=== PATIENT | male | born 1940 | race Caucasian/White ===

== ENCOUNTER 2020-10-04 23:26 | Inpatient (IN) | payer MEDICARE, OTHER, SELFPAY ==
[2020-02-12 09:46] VITALS: BMI 30.9
[2020-10-04 23:28] VITALS: BP 129/59; PULSE 91; RESP 17; TEMP 36.9; O2SAT 97; BMI 22.4
[2020-10-04 23:45] VITALS: BP 123/55; PULSE 90; RESP 19; O2SAT 95
--- NOTE | 2020-10-04 23:45 | CT_ITS ---
STUDY: CT HEAD STROKE PROTOCOL W/O CONTRAST INJECTION REASON FOR EXAM: Male, 80 years old. CONFUSION/? STROKE RADIATION DOSAGE (If Supplied By Facility): CTDIvol = ( ) mGy, DLP = ( ) mGycm TECHNIQUE: Transaxial CT imaging of the brain was performed without administration of intravenous contrast material. Individualized dose optimization techniques were used for this CT. COMPARISON: No relevant priors. FINDINGS: Normal soft tissue structures. Normal calvarium. There is a cavum septum pellucidum and a cavum septum vergae, a minor developmental anomaly. There is asymmetry of the ventricles consistent with an anatomic variant. Ventricular size is somewhat disproportionate to size of cortical sulci, which may be due to normal pressure hydrocephalus or central atrophy. There are areas of decreased attenuation within the white matter tracts of the supratentorial brain, consistent with microvascular disease changes. Normal basal ganglia and thalami. Normal brainstem. Normal cerebellum. There is atherosclerotic calcification of the cavernous carotid arteries. There is no intracranial hemorrhage. There are no findings of an acute ischemic infarction. Normal visualized paranasal sinuses. ASPECT score: 10 CT/STROKE Brain/Head without Cont IMPRESSION: Chronic involutional changes of the brain. Disproportionate prominence of the ventricles may be due to normal pressure hydrocephalus or central atrophy. No demonstrated acute intracranial process. N.B. : The above information has been verbally conveyed by Ilir Wilkinson MD to Dr. Luke Nation MD, on 10/05/2020 00:08:25 (ET). Electronically Signed: Ilir Wilkinson MD at 0:12 EST , Service support ,
--- NOTE | 2020-10-04 23:45 | EKG12_ITS ---
Test Reason : DYSRHYTHMIA Blood Pressure : / mmHG Vent. Rate : 092 BPM Atrial Rate : 092 BPM P-R Int : 176 ms QRS Dur : 090 ms QT Int : 350 ms P-R-T Axes : 046 017 -08 degrees QTc Int : 432 ms Normal sinus rhythm Normal ECG Confirmed by ROBINSON BUI, YUE ([id number]), art editor AVELINA FLOYD ([id number]) on 10/06/2020 8:55:23 AM Referred By: Emma Taylor Confirmed By:YEU BOWERS MD
--- NOTE | 2020-10-04 23:45 | RAD_ITS ---
STUDY: X-RAY CHEST REASON FOR EXAM: Male, 80 years old. altered mental status TECHNIQUE: Single AP portable view of the chest. COMPARISON: 04/15/2016. FINDINGS: There is mild chronic interstitial prominence in the lungs, greatest in the lower lung hi. There is no demonstrated focal pulmonary consolidation. There is no demonstrated pleural abnormality. Normal size heart. Normal mediastinum and evelina. Normal visualized aortic arch and descending thoracic aorta. There are no demonstrated acute fractures or destructive bone lesions. There is no demonstrated abnormality of the visualized soft tissue structures of the upper abdomen. RAD/Chest 1 View IMPRESSION: Chronic interstitial changes. No evidence for acute cardiopulmonary pathology. Electronically Signed: Ilir Wilkinson MD at 0:55 EST , Service support ,
[2020-10-04 23:46] VITALS: O2SAT 97
--- NOTE | 2020-10-04 23:47 | ED.VIS.GEN ---
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 Son-in-law is healthcare power of divorce attorney, presents to help provide history which is very limited from the patient. Patient lives alone, family lives nearby, they have a security camera focused on his rocking chair/recliner where he usually is. His son saw him earlier today in person and he was not right. Later, they saw that he was not in his chair for about 2 hours and since that was very unusual given the time of day, they went to check on him. He was standing in one of the bedrooms of the house, salivating at the mouth, with a pack of napkins or something that he was trying to open, unable to talk or communicate, and seeming very confused but standing. Family states that he does have some dementia, but he usually can answer questions appropriately and this is very unusual for him. He also states that he commonly has attitude and as the patient is apparently jokingly refusing to do physical exam maneuvers that I asked, the family member laughs and indicates that that is not uncommon for him. - Past Medical History (1) Dementia Status: Chronic (2) Essential (primary) hypertension Status: Chronic (3) Paroxysmal atrial fibrillation Status: Chronic Past Medical History - Allergies and Home Meds Allergies/Adverse Reactions: Allergies No Known Allergies Allergy (Verified 02/12/20 09:46) Primary Care Physician: Jose L Gorman III, MD [Primary Care Provider] - Lives: Alone Smoking Status: Never smoker - Family History Maternal Family History: Family History (Last Reviewed 02/12/20 @ 10:[address] Hardeep Medrano MD) Brother Blood clot in vein Hypertension Heart disease Sister CVA (cerebral vascular accident) Mother Heart disease Diabetes Family History: Reports: Diabetes, Heart Disease Paternal Family History: Family History (Last Reviewed 02/12/20 @ 10:[address] Hardeep Medrano MD) Brother Blood clot in vein Hypertension Heart disease Sister CVA (cerebral vascular accident) Mother Heart disease Diabetes Family History: Reports: - - Son denies any market paternal family history in his paternal grandfather including heart disease, diabetes, cancer. Review of Systems ROS: Unable to Obtain - At this time patient denies pain. Very garbled speech and altered mental status limits ROS. Physical Exam Vital Signs/Narrative: Vital Signs Temp Pulse Resp BP Pulse Ox 10/04/20 23:28 98.5 F 91 17 129/59 H 97 NIH Stroke Scale/Score (NIHSS) from [email or web address] on 10/05/2020 All calculations should be rechecked by clinician prior to use RESULT SUMMARY: 9 points NIH Stroke Scale INPUTS: 1A: Level of consciousness ?> 1 = Arouses to minor stimulation 1B: Ask month and age ?> 2 = Aphasic 1C: 'Blink eyes' & 'squeeze hands' ?> 2 = Performs 0 tasks 2: Horizontal extraocular movements ?> 0 = Normal 3: Visual hi ?> 0 = No visual loss 4: Facial palsy ?> 0 = Normal symmetry 5A: Left arm motor drift ?> 0 = No drift for 10 seconds 5B: Right arm motor drift ?> 0 = No drift for 10 seconds 6A: Left leg motor drift ?> 0 = No drift for 5 seconds 6B: Right leg motor drift ?> 0 = No drift for 5 seconds 7: Limb Ataxia ?> 0 = No ataxia 8: Sensation ?> 0 = Normal; no sensory loss 9: Language/aphasia ?> 2 = Severe aphasia: fragmentary expression, inference needed, cannot identify materials 10: Dysarthria ?> 2 = Severe dysarthria: unintelligible slurring or out of proportion to dysphasia 11: Extinction/inattention ?> 0 = No abnormality Inital Vital Signs reviewed: Yes General: Well nourished, Well developed, No Acute Distress Head: Normocephalic, Atraumatic Eyes: Perrl - 1-2 mm, EOMI ENT: Moist mucous membranes, No rhinorrhea, - - Posterior oropharynx clear. Oral mucous membranes moist, no excessive secretions, patient airway is patent and stable, no stridor. Neck: Supple - Without meningismus, Nontender, No lymphadenopathy, No JVD Cardiovascular: Regular rate, Regular rhythm, No murmurs. Negative for: Tachycardia Respiratory: No distress, CTA bilaterally, Chest nontender Abdomen: Soft, Nontender, Nondistended, Normal bowel sounds Back: Nontender, Normal Inspection Extremities: Nontender, Edema - Trace bilateral lower extremities, symmetric, without signs of cellulitis/infection. Skin: Normal color, No rash, No Trauma Neurological: Alert, Cranial nerves II-XII grossly intact, Normal Strength, Normal Sensation, Disoriented - Global aphasia, slurred speech almost unintelligible, does not answer questions appropriately, but gross peripheral motor and sensory intact. Patient will not hold his arms up for NIH, but seems to move everything symmetrically and normally., - Psychological: Normal affect, Normal Mood Diagnostic/Tx/Re-eval Impressions Brain CT 10/04/20 23:45 IMPRESSION: Chronic involutional changes of the brain. Disproportionate prominence of the ventricles may be due to normal pressure hydrocephalus or central atrophy. No demonstrated acute intracranial process. N.B. : The above information has been verbally conveyed by Ilir Wilkinson MD to Dr. Luke Nation MD, on 10/05/2020 00:08:25 (ET). Electronically Signed: Ilir Wilkinson MD at 0:12 EST , Service support , ADDENDUM: 10/05/20 0019 IMPRESSION: Chronic involutional changes of the brain. Disproportionate prominence of the ventricles may be due to normal pressure hydrocephalus or central atrophy. No demonstrated acute intracranial process. N.B. : The above information has been verbally conveyed by Ilir Wilkinson MD to Dr. Luke Nation MD, on 10/05/2020 00:08:25 (ET). Electronically Signed: Ilir Wilkinson MD at 0:12 EST , Service support , Chest X-Ray 10/04/20 23:45 IMPRESSION: Chronic interstitial changes. No evidence for acute cardiopulmonary pathology. Electronically Signed: Ilir Wilkinson MD at 0:55 EST , Service support , 10/04/20 23:45 Chest 1 View [RAD] Stat STROKE Brain/Head without Cont [CT] Stat 10/05/20 01:01 Brain without Contrast [MRI] Routine 10/05/20 01:08 MRA Head ONLY without Contrast [MRI] Routine MRA Neck without Contrast [MRI] Routine 10/05/20 05:55 Chest 1 View (Portable) [RAD] AM (NON MEDS) 10/05/20 00:34 Mucosa - Nose SARS-CoV-2 Antigen (Rapid) - Final Laboratory Results 10/04/20 10/04/20 10/04/20 23:36 23:36 23:36 WBC 10.3 RBC 4.16 L Hgb 12.8 L Hct 38.9 L MCV 93.5 MCH 30.8 MCHC 32.9 RDW Std Deviation 46.5 H RDW Coeff of Faustino 13.7 Plt Count 193 MPV 10.4 Immature Gran % (Auto) 0.400 Neut % (Auto) 83.6 H Lymph % (Auto) 4.9 L [place] % (Auto) 10.9 H Eos % (Auto) 0.0 Baso % (Auto) 0.2 Absolute Neuts (auto) 8.6 H Absolute Lymphs (auto) 0.51 L Nucleated RBC % 0 PT 21.4 H INR 1.9 APTT 37.2 H Sodium 138 Potassium 4.8 Chloride 107 Carbon Dioxide 24.0 Anion Gap 7 BUN 24 H Creatinine 1.66 H Estim Creat Clear Calc 34.06 Est GFR (MDRD) Af Amer 51 L Est GFR (MDRD) Non-Af 42 L BUN/Creatinine Ratio 14.5 Glucose 161 H Lactic Acid Calcium 8.8 Magnesium Total Bilirubin 0.80 AST 36 ALT 29 Alkaline Phosphatase 94 Troponin I < 0.015 Total Protein 8.7 H Albumin 3.4 Globulin 5.3 H Albumin/Globulin Ratio 0.6 L Procalcitonin Urine Color Urine Clarity Urine pH Ur Specific [place] Urine Protein Urine Glucose (UA) Urine Ketones Urine Occult Blood Urine Nitrite Urine Bilirubin Urine Urobilinogen Ur Leukocyte Esterase Urine RBC Urine WBC Ur Squamous Epith Cells Urine Bacteria Urine Mucus Urine Opiates Screen Urine Methadone Screen Acetaminophen Ur Barbiturates Screen Ur Phencyclidine Scrn Ur Amphetamines Screen U Methamphetamin-MDMA U Benzodiazepines Scrn Urine Cocaine Screen U Cannabinoids Screen Ur Drug Screen Comment POC Glucose 0110/04/20 10/04/20 23:36 23:36 23:36 WBC RBC Hgb Hct MCV MCH MCHC RDW Std Deviation RDW Coeff of Faustino Plt Count MPV Immature Gran % (Auto) Neut % (Auto) Lymph % (Auto) [place] % (Auto) Eos % (Auto) Baso % (Auto) Absolute Neuts (auto) Absolute Lymphs (auto) Nucleated RBC % PT INR APTT Sodium Potassium Chloride Carbon Dioxide Anion Gap BUN Creatinine Estim Creat Clear Calc Est GFR (MDRD) Af Amer Est GFR (MDRD) Non-Af BUN/Creatinine Ratio Glucose Lactic Acid 2.8 H* Calcium Magnesium 2.0 Total Bilirubin AST ALT Alkaline Phosphatase Troponin I Total Protein Albumin Globulin Albumin/Globulin Ratio Procalcitonin Urine Color Urine Clarity Urine pH Ur Specific [place] Urine Protein Urine Glucose (UA) Urine Ketones Urine Occult Blood Urine Nitrite Urine Bilirubin Urine Urobilinogen Ur Leukocyte Esterase Urine RBC Urine WBC Ur Squamous Epith Cells Urine Bacteria Urine Mucus Urine Opiates Screen Urine Methadone Screen Acetaminophen < 3.0 L Ur Barbiturates Screen Ur Phencyclidine Scrn Ur Amphetamines Screen U Methamphetamin-MDMA U Benzodiazepines Scrn Urine Cocaine Screen U Cannabinoids Screen Ur Drug Screen Comment POC Glucose 10/04/20 10/04/20 10/05/20 23:36 23:54 00:25 WBC RBC Hgb Hct MCV MCH MCHC RDW Std Deviation RDW Coeff of Faustino Plt Count MPV Immature Gran % (Auto) Neut % (Auto) Lymph % (Auto) [place] % (Auto) Eos % (Auto) Baso % (Auto) Absolute Neuts (auto) Absolute Lymphs (auto) Nucleated RBC % PT INR APTT Sodium Potassium Chloride Carbon Dioxide Anion Gap BUN Creatinine Estim Creat Clear Calc Est GFR (MDRD) Af Amer Est GFR (MDRD) Non-Af BUN/Creatinine Ratio Glucose Lactic Acid Calcium Magnesium Total Bilirubin AST ALT Alkaline Phosphatase Troponin I Total Protein Albumin Globulin Albumin/Globulin Ratio Procalcitonin 0.14 H Urine Color Urine Clarity Urine pH Ur Specific [place] Urine Protein Urine Glucose (UA) Urine Ketones Urine Occult Blood Urine Nitrite Urine Bilirubin Urine Urobilinogen Ur Leukocyte Esterase Urine RBC Urine WBC Ur Squamous Epith Cells Urine Bacteria Urine Mucus Urine Opiates Screen NEGATIVE Urine Methadone Screen NEGATIVE Acetaminophen Ur Barbiturates Screen NEGATIVE Ur Phencyclidine Scrn NEGATIVE Ur Amphetamines Screen NEGATIVE U Methamphetamin-MDMA NEGATIVE U Benzodiazepines Scrn NEGATIVE Urine Cocaine Screen NEGATIVE U Cannabinoids Screen NEGATIVE Ur Drug Screen Comment POC Glucose 137 H 10/05/20 00:25 WBC RBC Hgb Hct MCV MCH MCHC RDW Std Deviation RDW Coeff of Faustino Plt Count MPV Immature Gran % (Auto) Neut % (Auto) Lymph % (Auto) [place] % (Auto) Eos % (Auto) Baso % (Auto) Absolute Neuts (auto) Absolute Lymphs (auto) Nucleated RBC % PT INR APTT Sodium Potassium Chloride Carbon Dioxide Anion Gap BUN Creatinine Estim Creat Clear Calc Est GFR (MDRD) Af Amer Est GFR (MDRD) Non-Af BUN/Creatinine Ratio Glucose Lactic Acid Calcium Magnesium Total Bilirubin AST ALT Alkaline Phosphatase Troponin I Total Protein Albumin Globulin Albumin/Globulin Ratio Procalcitonin Urine Color Yellow Urine Clarity Clear Urine pH 5.0 Ur Specific [place] 1.020 Urine Protein 30 H Urine Glucose (UA) Normal Urine Ketones 5 H Urine Occult Blood 25 H Urine Nitrite Negative Urine Bilirubin Negative Urine Urobilinogen 1 H Ur Leukocyte Esterase Negative Urine RBC 0-5 SEEN Urine WBC 0 SEEN Ur Squamous Epith Cells 0 SEEN Urine Bacteria 0 SEEN Urine Mucus 0 SEEN Urine Opiates Screen Urine Methadone Screen Acetaminophen Ur Barbiturates Screen Ur Phencyclidine Scrn Ur Amphetamines Screen U Methamphetamin-MDMA U Benzodiazepines Scrn Urine Cocaine Screen U Cannabinoids Screen Ur Drug Screen Comment POC Glucose - Rhythm Strip Rhythm Strip: Sinus Rhythm Rate: 92 Ectopy: None - EKG Initial EKG Interpretation: Sinus Rhythm, No Acute Injury Pattern - Medical Decision Making Patient was not seen well within the last 24 hours, and is supposed to be on Xarelto although according to nursing, it does not appear in the EMR link to pharmacy that he has filled it since 2008. For these reasons, he is not a TPA candidate, he is not likely a thrombectomy candidate, and since we do not have CT perfusion available here, no stroke team was called, although stroke was considered in the broad differential for his altered mental status given his aphasia and garbled speech, although he does not have any other lateralizing cortical or peripheral neurologic abnormalities. Plain CT is negative. On my interpretation, 1 view chest x-ray is concerning for patchy infiltrates, putting Covid more in the differential diagnosis. Therefore a rapid antigen test was sent. It returned negative. Toxicology screening returned negative, urine is negative, blood cultures and lactate were sent, his lactate is nonspecifically mildly elevated, although his vital signs are normal, he is not hypoxic, and not clinically septic. He was treated empirically for bacterial pneumonia with Rocephin and Zithromax after cultures sent. ED Disposition - Plan for ED Patient: Disposition: [facility] Care [facility] Diagnosis: Acute encephalopathy, Aphasia Referrals: Jose L Gorman III, MD [Primary Care Provider] -
[2020-10-05] VITALS (25 sets, daily range): BP systolic 103–143; BP diastolic 48–98; PULSE 76–111; RESP 15–26; TEMP 36.7–38; O2SAT 81–98; BMI 30.2
[2020-10-05 00:01] LABS: Bedside Glucose 137 mg/dL (70-110)
[2020-10-05 00:02] LABS: International Normalized Ratio 1.9; Prothrombin Time (Protime)PT. 21.4 SECONDS (11.7-14.9)
[2020-10-05 00:11] LABS: ALB/GLOB Ratio 0.6 RATIO (0.9-2.4); AST(SGOT) 36 U/L (15-37); Acetaminophen (Tylenol) Level < 3.0 ug/mL (10.0-30.0); Alanine Aminotransfer ALT/SGPT 29 U/L (16-61); Albumin, Serum 3.4 g/dL (3.2-5.0); Alkaline Phosphatase 94 U/L (45-117); Anion Gap 7 (5-15); BUN 24 mg/dL (7-18); BUN/Creat Ratio 14.5 RATIO (10-20); Calcium,Total 8.8 mg/dL (8.5-10.1); Chloride 107 mmol/L (98-107); Creatinine, Serum 1.66 mg/dL (0.70-1.30); EST Glomerular Filtration Rate 42 mL/min (>60); Est Glom Filt Rate - Afr Amer 51 mL/min (>60); Estimated Creatinine Clearance 34.06 ml/min; Globulin 5.3 g/dL (2.2-4.2); Glucose 161 mg/dL (74-106); Partial Thromboplast Time 37.2 Seconds (24.1-36.2); Potassium 4.8 mmol/L (3.5-5.1); Protein, Total 8.7 g/dL (6.4-8.2); Sodium Level 138 mmol/L (136-145)
[2020-10-05 00:16] LABS: Absolute Lymphocyte Count 0.51 X10^3/uL (0.83-4.51); Absolute Neutrophil Count 8.6 X10^3/uL (2.0-7.7); Basophil# 0.02 X10^3/uL; Basophil% 0.2 % (0-1); Hematocrit 38.9 % (40-54); Hemoglobin 12.8 g/dL (13.0-16.5); Lymphocyte # 0.51 X10^3/ul (4.0); Lymphocyte % 4.9 % (19-41); Mean Corp Hgb Conc 32.9 g/dL (32-36); Mean Corpuscular Hgb 30.8 pg (27.0-32.0); Mean Corpuscular Volume 93.5 fL (80-94); Mean Platelet Vol. 10.4 fl (6.2-12.0); Monocyte# 1.12 X10^3/uL; Monocyte% 10.9 % (0-10); NRBC Flagged by Analyzer 0 % (0-5); Neutrophil # 8.63 X10^3/uL (2.7-7.7); Neutrophil % 83.6 % (47-70); POSITIVE DIFFERENTIAL YES; Platelet Count 193 K/mm3 (150-450); RBC Distribution Width CV 13.7 % (11.6-14.6); RBC Distribution Width SD 46.5 fl (35.1-43.9); Red Blood Count 4.16 M/mm3 (4.6-6.2); White Blood Count 10.3 K/mm3 (4.4-11.0)
[2020-10-05 00:19] LABS: Differential Indicated SCAN CRITERIA MET
[2020-10-05 00:33] LABS: Bacteria 0 SEEN /hpf (None Seen); Mucous, Urine 0 SEEN /hpf (<or=2+); Squamous Epithelial Cells - UA 0 SEEN /hpf (0-5); White Blood Cells 0 SEEN /hpf (0-5)
[2020-10-05 00:36] LABS: Color, Urine Yellow (Yellow); Glucose, Dipstick Normal (Normal); Ketone-Dipstick 5 mg/dl (Negative); Leukocyte Esterase-Dipstick Negative /ul (Negative); Nitrite-Dipstick Negative (Negative); Occult Blood-Urine 25 /ul (Negative); Protein-Dipstick 30 mg/dl (Negative); Urine Bilirubin Dipstick Negative (Negative); Urine Clarity Clear (Clear); Urine Urobilinogen 1 mg/dl (Normal)
[2020-10-05 00:46] LABS: Red Blood Cells-Urine 0-5 SEEN /hpf (0-5)
--- NOTE | 2020-10-05 00:47 | HP.PCM_ITS ---
Problem List (1) CVA (cerebral vascular accident) Status: Acute Qualifiers: CVA mechanism: unspecified Qualified Code(s): I63.9 - Cerebral infarction, unspecified (2) CKD (chronic kidney disease), stage III Status: Chronic Qualifiers: Chronic kidney disease stage 3 subtype: unspecified whether 3a or 3b Qualified Code(s): N18.30 - Chronic kidney disease, stage 3 unspecified (3) Normocytic anemia Status: Chronic (4) Dementia Status: Chronic Qualifiers: Dementia type: unspecified type Dementia behavioral disturbance: without behavioral disturbance Qualified Code(s): F03.90 - Unspecified dementia with out behavioral disturbance (5) Paroxysmal atrial fibrillation Status: Chronic (6) Essential (primary) hypertension Status: Chronic History of Present Illness Date of Admission: 10/05/20 Chief Complaint: Confusion The patient is a 80 y/o M w/ PMHx: Dementia unclear type with unclear behavioral disturbance history, HTN, JAKUB non-compliant with CPAP, Hx DVT LLE, Severely hearing impaired, PAF unclear if taking any of his medications per Son report living by himself and family rotating through and caring for him who presents to the [facility] ED on 10/05/20 with history of onset significantly abnormal behavior noted at ~3:30 pm with last normal behavior and interactions the evening prior. The family does have a monitor that sits in front of where he has his television chair and they noted that he been out of his chair for several hours prompting them to go to the house and check on him. When they found him he was eating pie and salivating in the bathroom, globally aphasic and unable to give any interaction or follow correct commands prompting ED evaluation. Prior to his current presentation family notes that he has had no recent fever, chills, nausea, emesis, abdominal pain, chest pain, cough, dyspnea, alteration to his sense of taste or smell. Work-up in the ED included T 98.5, heart rate 91, BP 129/59, respiratory rate 17, 97% on room air, CBC with WC 10.3, hemoglobin 12.8, platelet 193 with left shift and lymphopenia, coags with PT 21.4, INR 1.9, PTT 37.2, CMP with BUN/creatinine 24/1.66, glucose 161, lactic acid 2.8, troponin less than 0.015, unremarkable hepatic profile, urinalysis unremarkable, UDS unremarkable, acetaminophen level less than 3, blood culture x2 pending per ED, CT of the brain with chronic involutional changes with disproportionate prominence of the ventricles possibly secondary to NPH or central atrophy with no acute intracranial process, CXR with chronic interstitial changes with no acute cardiopulmonary findings, COVID rapid antigen pending and final read pending on CXR, EKG with SR without acute evidence of ischemia. In the ED patient administered normal saline, ED awaiting final read of chest x-ray/Covid testing prior to consideration for antibiotic therapy. Past Medical History Past Medical History (Chronic Problems): Chronic Problems (Last Reviewed 02/12/20 @ 10:[address] Hardeep Medrano MD) Dementia (Chronic) CKD (chronic kidney disease), stage III (Chronic) Normocytic anemia (Chronic) Paroxysmal atrial fibrillation (Chronic) Essential (primary) hypertension (Chronic) Medical History: Medical History (Last Reviewed 02/12/20 @ 10:[address] Hardeep Medrano MD) Paroxysmal atrial fibrillation (Chronic) I48.0 Essential (primary) hypertension (Chronic) I10 Basal cell carcinoma C44.91 Left cheek Deep vein thrombosis (DVT) of left lower extremity Onset Date: ~11/2015 I82.402 Diverticulosis K57.90 Hearing loss H91.90 Hemorrhoids K64.9 Sleep apnea G47.30 Allergies No Known Allergies Allergy (Verified 02/12/20 09:46) Home Medications: Ambulatory Orders Medication Instructions Recorded rivaroxaban 20 mg tablet 20 mg PO DAILY #30 tab 03/04/20 Surgical History: Surgical History (Last Reviewed 02/12/20 @ 10:[address] Hardeep Medrano MD) H/O repair of right rotator cuff Z98.890 History of basal cell carcinoma excision Z98.890, Z85.828 History of cataract surgery Z98.49 History of nasal septoplasty Z98.890 Surgical History: - - Cataract surgery, nasal septoplasty, right rotator cuff surgery, basal cell carcinoma excision. Psychiatric History: No pertinent psych hx Lives: Alone Smoking Status: Never smoker Tobacco Use: Non-smoker Alcohol: None Drugs: None - *Family History Maternal Family History: Family History (Last Reviewed 02/12/20 @ 10:[address] Hardeep Medrano MD) Brother Blood clot in vein Hypertension Heart disease Sister CVA (cerebral vascular accident) Mother Heart disease Diabetes History Items: Diabetes, Heart Disease Paternal Family History: Family History (Last Reviewed 02/12/20 @ 10:[address] Hardeep Medrano MD) Brother Blood clot in vein Hypertension Heart disease Sister CVA (cerebral vascular accident) Mother Heart disease Diabetes History Items: - - Son denies any market paternal family history in his paternal grandfather including heart disease, diabetes, cancer. Review of Systems Unable to obtain accurate/complete ROS d/t: Globally aphasic, unable to give any information including ROS. VTE Information - Inpt Only VTE Present on Admission: No VTE Mechan Device Prophylaxis: SCD's VTE Pharm Prophylaxis ordered?: No Reason prophylaxis not ordered:: Medical Contraindication - Will resume patient's Xarelto instead. Patient Problems: Active and Suspected Problems (Last Reviewed 02/12/20 @ 10:[address] Hardeep Medrano MD) CVA (cerebral vascular accident) (Acute) Subjective: Patient laying in the ED bed, fatigued appearing but no acute distress, difficult examination given significant global aphasia, not following commands. Objective: Physical Examination: General: awake, alert, clearly globally aphasic, not able to answer orientation questions or follow any commands, laying in the ED bed, no acute distress evident.. Skin: normal color, turgor, no icterus, cyanosis. HEENT: AT/NC, EOM appear intact but difficult to assess as patient not following any commands but will follow from side to side of the bed, PERRLA, moderately dry MM, no carotid bruits or JVD noted. Lungs: Diminished breath sounds, greater bases, no evidence of any distress, no specifically noted rales, ronchi or wheezing. Heart: Regular rate and rhythm; no gallop, rub audible. Abdomen: soft, NTTP, ND, mildly hyperactive BS, no HSM. Extremities: no cyanosis, clubbing, or edema. Neurological: patient awake, alert, globally aphasic; cognitive function not baseline intact, does have underlying dementia of note; pupils equally reactive to light and accomodation; cranial nerves difficult to assess as not following commands but globally appear normal, moving all extremities but not following any commands, difficult to assess strength, unable to perform [id number] and wryz-[id number] examination secondary to his significant aphasia, no obvious Babinski. Psychiatric: affect appears abnormal ranging from flat to randomly laughing as well as randomly aggressive, no acute evidence of depressive or anxiety feelings. - Physical Exam Vitals/I&O's: Vital Signs Temp Pulse Resp BP Pulse Ox 98.5 F 94 18 142/68 H 97 10/04/20 23:28 10/05/20 00:32 10/05/20 00:32 10/05/20 00:32 10/05/20 00:32 Oxygen Delivery Method Room Air Weight: 152 lb 1.903 oz Body Mass Index (BMI) 22.4 Finger Stick Blood Glucose 173 Laboratory Results 10/04/20 23:36: WBC 10.3, RBC 4.16 L, Hgb 12.8 L, Hct 38.9 L, MCV 93.5, MCH 30.8, MCHC 32.9, RDW Std Deviation 46.5 H, RDW Coeff of Faustino 13.7, Plt Count 193, MPV 10.4, Immature Gran % (Auto) 0.400, Neut % (Auto) 83.6 H, Lymph % (Auto) 4.9 L, [place] % (Auto) 10.9 H, Eos % (Auto) 0.0, Baso % (Auto) 0.2, Absolute Neuts (auto) 8.6 H, Absolute Lymphs (auto) 0.51 L, Nucleated RBC % 0 10/04/20 23:36: PT 21.4 H, INR 1.9, APTT 37.2 H 10/04/20 23:36: Sodium 138, Potassium 4.8, Chloride 107, Carbon Dioxide 24.0, Anion Gap 7, BUN 24 H, Creatinine 1.66 H, Estim Creat Clear Calc 34.06, Est GFR (MDRD) Af Amer 51 L, Est GFR (MDRD) Non-Af 42 L, BUN/Creatinine Ratio 14.5, Glucose 161 H, Calcium 8.8, Total Bilirubin 0.80, AST 36, ALT 29, Alkaline Phosphatase 94, Troponin I < 0.015, Total Protein 8.7 H, Albumin 3.4, Globulin 5.3 H, Albumin/Globulin Ratio 0.6 L 10/04/20 23:36: Acetaminophen < 3.0 L 10/04/20 23:36: Lactic Acid Pending 10/04/20 23:54: POC Glucose 137 H 10/05/20 00:25: Urine Opiates Screen Pending, Urine Methadone Screen Pending, Ur Barbiturates Screen Pending, Ur Phencyclidine Scrn Pending, Ur Amphetamines Screen Pending, U Methamphetamin-MDMA Pending, U Benzodiazepines Scrn Pending, Urine Cocaine Screen Pending, U Cannabinoids Screen Pending, Ur Drug Screen Comment 10/05/20 00:25: Urine Color Yellow, Urine Clarity Clear, Urine pH 5.0, Ur Specific [place] 1.020, Urine Protein 30 H, Urine Glucose (UA) Normal, Urine Ketones 5 H, Urine Occult Blood 25 H, Urine Nitrite Negative, Urine Bilirubin Negative, Urine Urobilinogen 1 H, Ur Leukocyte Esterase Negative, Urine RBC 0-5 SEEN, Urine WBC 0 SEEN, Ur Squamous Epith Cells 0 SEEN, Urine Bacteria 0 SEEN, Urine Mucus 0 SEEN Current Medications Sodium Chloride () 500 mls @ 999 mls/hr IV .Q31M ONE Last Admin: 10/05/20 00:06 Dose: 999 mls/hr Documented by: Labetalol HCl (Labetalol (Prefilled) 20 Mg/4 Ml) 20 mg IV X1 PRN PRN Reason: BLOOD PRESSURE Assessment/Plan All Active Problems (Last Reviewed 02/12/20 @ 10:[address] Hardeep Medrano MD) CVA (cerebral vascular accident) (Acute) The patient is a 80 y/o M w/ PMHx: Dementia unclear type with unclear behavioral disturbance history, HTN, JAKUB non-compliant with CPAP, Hx DVT LLE, Severely hearing impaired, PAF unclear if taking any of his medications per Son report living by himself and family rotating through and caring for him who presents to the [facility] ED on 10/05/20 with history of onset significantly abnormal behavior noted at ~3:30 pm with last normal behavior and interactions the evening prior. 1. Significant global aphasia concerning for CVA: Will admit to PCU, will obtain MRI Brain, MRA Head and Neck, ECHO, PT/OT/Speech/Nutrition evaluation per protocol. Will consult Neurology for evaluation once imaging obtained. Will allow permissive HTN in the interim, maintain on asa, add moderate dose statin given age w/ AM FLP, fall precautions. Magnesium, TSH, hemoglobin A1c requested. 2. Lactic acidosis, unclear etiology: Chest x-ray with chronic interstitial changes as initially been some concern for possible pneumonia upon initial preliminary review, Covid antigen pending, to be cautious will obtain repeat chest x-ray in a.m. following overnight hydration, procalcitonin requested, UA not marked appearing with urine culture pending, blood culture x2 pending, will request sputum as well as urine antigens as well to be cautious and reassess film in AM. 3. PAF: Given permissive hypertension will hold on any addition but following given history may consider low-dose metoprolol, will reinitiate patient Xarelto. 4. Hypertension: Patient's blood pressures primarily within normal range, permissive hypertension currently, judicious fluids as noted, add regimen once appropriate per discussion with family as likely would be transitioning to [facility] and could be assisted with medications at that time. 5. History of remote DVT left lower extremity: As noted being transition back on his anticoagulant therapy for PAF. 6. Suspected Chronic Kidney Disease Stage III: Admission BUN/Cr 24/1.66, no baseline noted in the computer since 2014, given age and history medically jimenez spect this is likely chronic but will continue to judiciously hydrate and repeat BMP in AM. 7. JAKUB: Noncompliant with CPAP. 8. DVT prophylaxis: SCDs, Xarelto. 9. CODE status: Patient SAVANNAH is his son Remberto who is present and living will is currently in place. Discussed CODE status at length including difference between FULL code, DNR-CCA and DNR-CC status. Following discussions about the dif ferences in these status, requested Full Code status but noted that if he worsened then he would plan transition to CC status. He notes plan for transition given current presentation to [facility] upon his discharge. Advanced Care Planning Face to Face Time: 16 minutes. Inpatient E&M: 16001 Init Hosp L3 Procedures: 39602 Advncd Care Plan 30 Min
[2020-10-05 00:51] LABS: Lactic Acid 2.8 mmol/L (0.4-1.9)
[2020-10-05 00:57] LABS: Amphetamine Urine VISTA NEGATIVE (<1000 ng/mL); Barbiturate Urine VISTA NEGATIVE (< 200 ng/mL); Benzodiazepine Urine VISTA NEGATIVE (< 200 ng/mL); Cocaine Urine VISTA NEGATIVE (< 300 ng/mL); Ecstacy Urine VISTA NEGATIVE (< 500 ng/mL); Methadone Urine VISTA NEGATIVE (< 300 ng/mL); PCP Urine VISTA NEGATIVE (< 25 ng/mL); THC Urine VISTA NEGATIVE (< 50 ng/mL); Vista UDS pH Range 5
--- NOTE | 2020-10-05 01:00 | ECHOCS_ITS ---
Version 2 Reason For Study: CVA Procedure This was a 2D Doppler, Color Flow transthoracic echocardiogram. The study was technically limited. Contrast injection was performed. Patient was scanned in supine position during reflux assessment. The exam was of poor technical quality due to poor acoustic windows / pectus excavatum. Exam performed portable in patient room. Left Ventricle Normal LV size. Left ventricular systolic function is normal. The estimated ejection fraction is 55 %. Stage 2 diastolic dysfunction. No regional wall motion abnormalities noted. Right Ventricle Normal RV size. Normal systolic function. Atria Normal left atrium. Normal right atrium. Bubble contrast study negative for right to left interatrial shunt. Mitral Valve Normal mitral valve. Tricuspid Valve Normal tricuspid valve. Mild (1+) tricuspid valve insufficiency. Pulmonary artery systolic pressure is 48 mmHg. Aortic Valve The aortic valve is not well visualized. Pulmonic Valve Normal pulmonic valve. Great Vessels Normal aortic root. The pulmonary artery is normal size. Normal inferior vena cava. Pericardium/Pleural No pericardial effusion. Medication Diluted definity 5.0ml given slow IV push to enhance endocardial definition. Performed a rapid injection of agitated mix of 9 cc saline and 1cc air to assess for atrial septal defect. Bubble study performed from subcostal window. MMode/2D Measurements & Calculations LVIDd: 4.4 cm IVSd: 0.99 cm Ao root diam: 3.8 cm LVIDs: 2.7 cm LVPWd: 0.99 cm RVDd: 3.4 cm FS: 39.4 % LAV(MOD-bp): 50.7 ml LA dimension(2D): 3.4 cm RA A4 area: 21.7 cm2 LAV(MOD-bp) Indexed: 24.3 ml/m2 LAV(MOD-sp2): 42.0 ml LAV(MOD-sp4): 46.3 ml Time Measurements MV dec time: 0.24 sec Doppler Measurements & Calculations MV E max matt: 89.9 cm/sec Lat Peak E' Matt: 8.6 cm/sec Med Peak E' Matt: 7.9 cm/sec MV A max matt: 74.1 cm/sec E/E' lat: 10.4 E/E' med: 11.4 MV E/A: 1.2 Ao V2 max: 134.9 cm/sec LV V1 max: 122.0 cm/sec PA V2 max: 110.6 cm/sec Ao max P.3 mmHg LV V1 max P.0 mmHg TR max matt: 333.8 cm/sec TR max P.6 mmHg Interpretation Summary Normal LV size. Left ventricular systolic function is normal. The estimated ejection fraction is 55 %. Mild (1+) tricuspid valve insufficiency. Pulmonary artery systolic pressure is 48 mmHg. Stage 2 diastolic dysfunction. Bubble contrast study negative for right to left interatrial shunt. Contrast injection was performed. Ordering Physician: Emma Taylor Referring Physician: JACOB MC III Performed By: Betsy Freed RDCS, RVT
--- NOTE | 2020-10-05 01:01 | MRI_ITS ---
STUDY: MRI BRAIN WITHOUT CONTRAST REASON FOR EXAM: Male, 80 years old. cva, aphasia -- hx dementia TECHNIQUE: Standardized multiplanar fat and water weighted pulse sequences were obtained. COMPARISON: CT 10/04/2020 FINDINGS: There is moderate cerebral atrophy with widening of the extra-axial spaces and ventricular dilatation. There are multiple white matter hyperintensities, distributed throughout the deep white matter tracts of the cerebral hemispheres, consistent with moderate chronic white matter ischemic changes. There is no evidence for recent intracranial ischemia or other cause of cytotoxic edema on diffusion weighted imaging (DWI). Normal T2* images of the brain without demonstrated susceptibility artifact. There is no demonstrated hemosiderin stain. Normal bilateral basal ganglia. Normal thalami. There is no extra-axial fluid accumulation. Normal flow voids within the major intracranial circulation suggesting patency by spin echo criteria. Normal sella turcica, pituitary gland, infundibular stalk, optic chiasm and hypothalamus. Normal tectal plate and pineal gland. Normal midbrain, ab and medulla. Normal cerebellum. Normal basal cisterns. Normal bilateral temporal bones. Normal bilateral internal auditory canals. There are bilateral ocular lens implants with otherwise normal intraorbital contents. Normal visualized paranasal sinuses. Normal calvarium and skull base. Normal visualized soft tissue structures. Normal visualized upper cervical spine. MRI/Brain without Contrast IMPRESSION: Involutional changes of the brain, as described above. No acute infarct. Electronically Signed: Bruce Kate MD at 13:01 EST Tel , Service support ,
--- NOTE | 2020-10-05 01:01 | ED.RN ---
[facility] PHONE NUMBER: [phone]
--- NOTE | 2020-10-05 01:08 | MRI_ITS ---
STUDY: MRA OF THE HEAD WITHOUT CONTRAST REASON FOR EXAM: Male, 80 years old. cva, aphasia -- hx dementia TECHNIQUE: 3-D [id number] (TOF) imaging was performed with MIPs. The study was performed unenhanced. COMPARISON: None. FINDINGS: Normal bilateral petrous carotid arteries. Normal right cavernous carotid artery with a normal supraclinoid bifurcation. Normal left cavernous carotid artery with a normal supraclinoid bifurcation. Normal right A1 segments of the anterior cerebral artery. Normal left A1 segments of the anterior cerebral artery. Normal intact anterior communicating artery (ACOM). Normal bilateral A2 segments of the anterior cerebral arteries. Normal right M1 and M2 segments of the middle cerebral arteries, with a normal M1 bifurcation. Normal left M1 and M2 segments of the middle cerebral arteries, with a normal M1 bifurcation. Normal right posterior communicating artery (PCOM). Normal left posterior communicating artery (PCOM). Normal bilateral vertebral arteries. Normal basilar artery with a normal basilar bifurcation. The visualized bilateral superior cerebellar (SCA) arteries are normal. Normal bilateral P1, P2 and visualized P3 segments of the posterior cerebral arteries. There is no demonstrated aneurysm of the [place] of [place]. There is no major vessel occlusion or hemodynamically significant stenosis. There is no demonstrated abnormality of the visualized brain. MRI/MRA Head ONLY without Contrast IMPRESSION: Normal MRA of the head Electronically Signed: Bruce Kate MD at 13:02 EST Tel , Service support ,
--- NOTE | 2020-10-05 01:08 | MRI_ITS ---
STUDY: MRA NECK WITHOUT CONTRAST REASON FOR EXAM: Male, 80 years old. cva, aphasia -- hx dementia TECHNIQUE: Source images were obtained, MIPs were performed. The study was performed unenhanced. COMPARISON: None. FINDINGS: RIGHT CAROTID ARTERIES: Normal right common carotid artery (CCA). Normal right common carotid bulb. Normal origin of the right internal carotid (ICA) artery without a hemodynamically significant stenosis. Normal visualized cervical portion of the right internal carotid artery. Normal origin of the right external carotid artery (ECA). LEFT CAROTID ARTERIES: Normal left common carotid artery (CCA). Normal left common carotid bulb. Normal origin of the left internal carotid (ICA) artery without a hemodynamically significant stenosis. Normal visualized cervical portion of the left internal carotid artery. Normal origin of the left external carotid artery (ECA). VERTEBRAL ARTERIES: Normal antegrade flow within the bilateral vertebral artery without a hemodynamically significant stenosis. MRI/MRA Neck without Contrast IMPRESSION: Normal bilateral cervical carotid and vertebral arteries. Electronically Signed: Bruce Kate MD at 13:04 EST Tel , Service support ,
[2020-10-05 01:33] LABS: Procalcitonin 0.14 ng/mL (0.00-0.09)
[2020-10-05] MEDS: 0.9% Normal Saline 1,000 ML 100 ML IV ×2 (02:47→16:55)
[2020-10-05] MEDS: Enoxaparin 100 MG/ML Syringe 90 MG SC ×3 (04:03→21:45)
[2020-10-05 04:33] LABS: Reflex Lactate? Y
[2020-10-05 04:57] LABS: Absolute Lymphocyte Count 0.79 X10^3/uL (0.83-4.51); Absolute Neutrophil Count 10.2 X10^3/uL (2.0-7.7); Basophil# 0.02 X10^3/uL; Basophil% 0.2 % (0-1); Hematocrit 36.8 % (40-54); Hemoglobin 11.9 g/dL (13.0-16.5); Lymphocyte # 0.79 X10^3/ul (4.0); Lymphocyte % 6.3 % (19-41); Mean Corp Hgb Conc 32.3 g/dL (32-36); Mean Corpuscular Hgb 30.4 pg (27.0-32.0); Mean Corpuscular Volume 93.9 fL (80-94); Mean Platelet Vol. 9.2 fl (6.2-12.0); Monocyte# 1.56 X10^3/uL; Monocyte% 12.4 % (0-10); NRBC Flagged by Analyzer 0 % (0-5); Neutrophil # 10.17 X10^3/uL (2.7-7.7); Neutrophil % 80.9 % (47-70); POSITIVE DIFFERENTIAL YES; Platelet Count 162 K/mm3 (150-450); RBC Distribution Width CV 13.7 % (11.6-14.6); RBC Distribution Width SD 46.9 fl (35.1-43.9); Red Blood Count 3.92 M/mm3 (4.6-6.2); White Blood Count 12.6 K/mm3 (4.4-11.0)
[2020-10-05 04:59] LABS: Differential Indicated SCAN CRITERIA MET
[2020-10-05 05:28] LABS: ALB/GLOB Ratio 0.6 RATIO (0.9-2.4); AST(SGOT) 18 U/L (15-37); Alanine Aminotransfer ALT/SGPT 26 U/L (16-61); Albumin, Serum 3.1 g/dL (3.2-5.0); Alkaline Phosphatase 90 U/L (45-117); Anion Gap 7 (5-15); BUN 24 mg/dL (7-18); BUN/Creat Ratio 21.6 RATIO (10-20); Calcium,Total 8.7 mg/dL (8.5-10.1); Chloride 107 mmol/L (98-107); Cholesterol 135 mg/dL (200); Creatinine, Serum 1.11 mg/dL (0.70-1.30); EST Glomerular Filtration Rate 68 mL/min (>60); Est Glom Filt Rate - Afr Amer 82 mL/min (>60); Estimated Creatinine Clearance 52.19 ml/min; Globulin 4.8 g/dL (2.2-4.2); Glucose 126 mg/dL (74-106); High Density Lipoprotein 42 mg/dL; Potassium 3.8 mmol/L (3.5-5.1); Protein, Total 7.9 g/dL (6.4-8.2); Sodium Level 137 mmol/L (136-145); T4 Free Direct 1.12 ng/dL (0.76-1.46); Thyroid Stim Hormone (TSH) 0.35 uIU/mL (0.358-3.74); Triglycerides 38 mg/dL; Very Low Density Lipoprotein 8 mg/dL (5-40)
--- NOTE | 2020-10-05 05:55 | RAD_ITS ---
STUDY: X-RAY CHEST REASON FOR EXAM: Male, 80 years old. cough TECHNIQUE: Single AP portable view of the chest. COMPARISON: 10/05/2020 at 0006 FINDINGS: The lungs are clear and expanded. There is no demonstrated pleural abnormality. Normal size heart. Normal mediastinum and evelina. Normal visualized pulmonary arteries. Normal visualized aortic arch and descending thoracic aorta. Normal visualized thoracic spine. Normal visualized ribs, clavicles, and shoulders. There is no demonstrated abnormality of the visualized soft tissue structures of the upper abdomen. RAD/Chest 1 View (Portable) IMPRESSION: Normal x-ray examination of the chest. Electronically Signed: Bruce Kate MD at 9:31 EST Tel , Service support ,
[2020-10-05] MEDS: 0.9% Saline Lock 10 ML Syringe IV (06:23)
--- NOTE | 2020-10-05 06:26 | PCS.PANDOC ---
PANDEMIC DOCUMENTATION INITIATED: Date: 10/05 Time: 8821
--- NOTE | 2020-10-05 06:27 | NURSING ---
Attempted to Don, JOANNE, to fill out MRI checklist; did not answer phone call. Left message for Don to call back.
[2020-10-05 07:33] LABS: Hemoglobin A1c 5.7 % (3.8-5.6)
[2020-10-05] MEDS: Aspirin 300 MG Suppository RECTAL (09:49)
[2020-10-05] MEDS: Menthol/Lanolin/Calamine/Znox 113 GM Tube 1 APPLIC TOPICAL ×4 (09:52→21:46)
--- NOTE | 2020-10-05 11:18 | NURSING ---
report called to Dixie Rn floor nurse
--- NOTE | 2020-10-05 13:18 | CASEMGMT ---
CHRYSTAL ATKINS assessment: Face to Face with patient for initial transition planning/care coordination assessment but pt is confused at this time with a GCS of 14 and unable to answer assessment questions at this time. Pt's voice is thick/garbled at this time and pt seems unable to manage own secretions at this time. Speech therapist updated on this at this time and into room to assess pt. Pt's daughter, Lashanda Sheffield, is listed as HPOA and HPOA paperwork is on chart at this time. Call to daughter and CHRYSTAL ATKINS introduced self and role at [facility], daughter voices understanding and is willing to answer assessment questions at this time. Care providers, pharmacy, and demographics verified/updated at this time. Presentation: Altered mental status Admitting dx: CVA, possible pna PCP: Sherif MATTHEWS Specialists: sarath Medrano Pharmacy: [facility] Insurance: [employer] A/B, Retrieve Prescription Benefit: Yes Living Will/HPOA: Pt has LW/HPOA and HPOA is on file at [facility] and copy of LW was brought in this visit and will be scanned into chart. Pt's daughter, Lashanda Sheffield, is listed as HPOA with her , Remberto Sheffield and her brother, Gregorio Carney, listed as alternates. Per Lashanda, they all three make decisions together. LNOK: Lashanda and Remberto Sheffield, daughter/son-in-law; Gregorio Carney, son Living Arrangements: Pt was living alone but daughter states his memory has gotten significantly worse over last several months and Dr. Sherif MATTHEWS completed dementia screening a couple months ago and pt was diagnosed with dementia at that time. Daughter states that they met with Hospice 3 weeks ago and pt was 'still too mobile' at that time. Per daughter, they have been talking with [facility] and have been working on getting pt set up there, either in AL or the memory unit. Daughter also states that they do not want pt to be full code at this time and Dr. Miles happened to walk around the corner and he spoke with daughter on the phone regarding code status and updated her on MRI results at this time. Transportation: Family drives and states no transportation concerns at this time. DME/HHC: Daughter states pt has no current DME and declines need for any further DME at this time. Pt has not been to SNF or had HHC in the past. Pt is retired. Pt does not smoke cigarettes or drink ETOH. Daughter voices no further concerns/needs at this time. CM to follow therapy evals, NPO status, and for any further discharge planning/needs. Advised daughter to ask for CM if any further questions/concerns/needs arise, voices understanding. Plan: YESSY Jacinto RN CM
[2020-10-05 13:37] LABS: Pathologist Review Reviewed
--- NOTE | 2020-10-05 13:49 | CASEMGMT ---
Addendum entered by Kimi Vides 10/05/20 14:55: SW spoke w/[facility], when initial referral was made a few weeks ago, pt did not qualify for hospice. CARMENZA Zaragoza Original Note: It does not appear that pt had a stroke, he would not be able to participate in a PHQ-9 at this time regardless. CARMENZA Zaragoza
--- NOTE | 2020-10-05 15:40 | CT_ITS ---
We are attempting to reach an attending provider to discuss findings. An addendum with communication details will be sent when the communication is complete. STUDY: CT SOFT TISSUE NECK WITH CONTRAST REASON FOR EXAM: Male, 80 years old. SUBMANDIBULAR SWELLING. RADIATION DOSAGE (If Supplied By Facility): CTDIvol = ( 13.15 ) mGy, DLP = ( 415.51 ) mGycm TECHNIQUE: The patient was scanned in a multi-detector CT scanner. High resolution transaxial imaging was performed following intravenous administration of IV 100ML ISOVUE 370. Sagittal and coronal images were reconstructed. Individualized dose optimization techniques were used for this CT. COMPARISON: None. FINDINGS: Normal bilateral parotid glands. 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 Normal bilateral parapharyngeal spaces. Normal bilateral carotid spaces. Enlargement of the right submandibular gland with stranding of surrounding fat which contains multiple linear areas of gas worrisome for infection. No well-defined loculated fluid collection to suggest abscess. Normal visualized nasopharynx. Normal retropharyngeal space. Normal perivertebral space. Normal visualized bilateral faucial tonsils. The visualized tongue, tongue base and oropharynx are normal. The visualized cervical lymph nodes (levels I-) are within normal size limits, and maintain normal morphology. There is no demonstrated solid or cystic mass lesion. There is no abnormal contrast enhancement. Normal epiglottis, bilateral vallecula and hypopharynx. The pre-epiglottic and paraglottic adipose spaces are normal. Normal visualized bilateral piriform sinuses, aryepiglottic folds, vocal cords, and arytenoid-cricoid articulations. Normal subglottic trachea. Normal bilateral lobes of the thyroid gland. Normal visualized pulmonary apices. Normal visualized paranasal sinuses. Normal visualized cervical spine. CT/Soft Tissue Neck WITH Contrast IMPRESSION: Gas producing infection of the right submandibular gland without well-defined abscess. Electronically Signed: Bruce Kate MD at 16:00 EST Tel , Service support ,
[2020-10-05] MEDS: metroNIDAZOLE 500 MG/100 ML BAG 100 MG IV ×2 (17:44→23:41)
--- NOTE | 2020-10-05 17:59 | PCM.CONS.GEN ---
Problem List (1) Submandibular gland swelling Status: Acute Reason for Consult Date of Consultation: 10/05/20 Reason for Consultation: Acute swelling over the right submandibular region that started several days ago History of Present Illness: The patient is a 80 year old Male recently admitted for right submandibular gland swelling. His son in law states his mental affect is certainly decreased from 1 day ago. Past Medical History Past Medical History (Chronic Problems): Chronic Problems (Last Reviewed 02/12/20 @ 10:[address] Hardeep Medrano MD) Dementia (Chronic) CKD (chronic kidney disease), stage III (Chronic) Normocytic anemia (Chronic) Paroxysmal atrial fibrillation (Chronic) Essential (primary) hypertension (Chronic) Medical History: Medical History (Last Reviewed 02/12/20 @ 10:[address] Hardeep Medrano MD) Paroxysmal atrial fibrillation (Chronic) I48.0 Essential (primary) hypertension (Chronic) I10 Basal cell carcinoma C44.91 Left cheek Deep vein thrombosis (DVT) of left lower extremity Onset Date: ~11/2015 I82.402 Diverticulosis K57.90 Hearing loss H91.90 Hemorrhoids K64.9 Sleep apnea G47.30 Allergies No Known Allergies Allergy (Verified 02/12/20 09:46) Home Medications: Ambulatory Orders Medication Instructions Recorded rivaroxaban 20 mg tablet 20 mg PO DAILY #30 tab 03/04/20 Surgical History: Surgical History (Last Reviewed 02/12/20 @ 10:[address] Hardeep Medrano MD) H/O repair of right rotator cuff Z98.890 History of basal cell carcinoma excision Z98.890, Z85.828 History of cataract surgery Z98.49 History of nasal septoplasty Z98.890 Surgical History: - - Cataract surgery, nasal septoplasty, right rotator cuff surgery, basal cell carcinoma excision. Psychiatric History: No pertinent psych hx Lives: Alone Smoking Status: Never smoker Tobacco Use: Non-smoker Alcohol: None Drugs: None - *Family History Maternal Family History: Family History (Last Reviewed 02/12/20 @ 10:[address] Hardeep Medrano MD) Brother Blood clot in vein Hypertension Heart disease Sister CVA (cerebral vascular accident) Mother Heart disease Diabetes History Items: Diabetes, Heart Disease Paternal Family History: Family History (Last Reviewed 02/12/20 @ 10:[address] Hardeep Medrano MD) Brother Blood clot in vein Hypertension Heart disease Sister CVA (cerebral vascular accident) Mother Heart disease Diabetes History Items: - - Son denies any market paternal family history in his paternal grandfather including heart disease, diabetes, cancer. Patient Problems: Active and Suspected Problems (Last Reviewed 02/12/20 @ 10:[address] Hardeep Medrano MD) CVA (cerebral vascular accident) (Acute) Acute encephalopathy (Acute) Aphasia (Acute) Submandibular gland swelling (Acute) - Physical Exam Vitals/I&O's: Vital Signs Temp Pulse Resp BP Pulse Ox 100.2 F H 108 H 18 143/74 H 92 10/05/20 16:15 10/05/20 16:15 10/05/20 16:15 10/05/20 16:15 10/05/20 16:15 Oxygen Flow Rate (L/min) 2 Oxygen Delivery Method Nasal Cannula Weight: 92.7 kg Body Mass Index (BMI) 30.2 Finger Stick Blood Glucose 173 Intake and Output for Last 24 Hours 10/03/20 10/04/20 10/05/20 23:59 23:59 23:59 Intake Total 1613.67 / 1613.67 Balance 1613.67 / 1613.67 Microbiology Past 72 Hours 10/05/20 01:36 Mucosa - Nasopharyngeal Respiratory Panel (PCR) - Final 10/05/20 00:25 Urine Catheter - Catheter Legionella Antigen - Final 10/05/20 00:25 Urine Catheter - Catheter Streptococcus pneumoniae Antigen (M - Final 10/05/20 00:34 Mucosa - Nose SARS-CoV-2 Antigen (Rapid) - Final Laboratory Results 10/04/20 23:36: WBC 10.3, RBC 4.16 L, Hgb 12.8 L, Hct 38.9 L, MCV 93.5, MCH 30.8, MCHC 32.9, RDW Std Deviation 46.5 H, RDW Coeff of Faustino 13.7, Plt Count 193, MPV 10.4, Immature Gran % (Auto) 0.400, Neut % (Auto) 83.6 H, Lymph % (Auto) 4.9 L, [place] % (Auto) 10.9 H, Eos % (Auto) 0.0, Baso % (Auto) 0.2, Absolute Neuts (auto) 8.6 H, Absolute Lymphs (auto) 0.51 L, Nucleated RBC % 0 10/04/20 23:36: PT 21.4 H, INR 1.9, APTT 37.2 H 10/04/20 23:36: Sodium 138, Potassium 4.8, Chloride 107, Carbon Dioxide 24.0, Anion Gap 7, BUN 24 H, Creatinine 1.66 H, Estim Creat Clear Calc 34.06, Est GFR (MDRD) Af Amer 51 L, Est GFR (MDRD) Non-Af 42 L, BUN/Creatinine Ratio 14.5, Glucose 161 H, Calcium 8.8, Total Bilirubin 0.80, AST 36, ALT 29, Alkaline Phosphatase 94, Troponin I < 0.015, Total Protein 8.7 H, Albumin 3.4, Globulin 5.3 H, Albumin/Globulin Ratio 0.6 L 10/04/20 23:36: Acetaminophen < 3.0 L 10/04/20 23:36: Lactic Acid 2.8 H* 10/04/20 23:36: Magnesium 2.0 10/04/20 23:36: Procalcitonin 0.14 H 10/04/20 23:54: POC Glucose 137 H 10/05/20 00:25: Urine Opiates Screen NEGATIVE, Urine Methadone Screen NEGATIVE, Ur Barbiturates Screen NEGATIVE, Ur Phencyclidine Scrn NEGATIVE, Ur Amphetamines Screen NEGATIVE, U Methamphetamin-MDMA NEGATIVE, U Benzodiazepines Scrn NEGATIVE, Urine Cocaine Screen NEGATIVE, U Cannabinoids Screen NEGATIVE, Ur Drug Screen Comment 10/05/20 00:25: Urine Color Yellow, Urine Clarity Clear, Urine pH 5.0, Ur Specific [place] 1.020, Urine Protein 30 H, Urine Glucose (UA) Normal, Urine Ketones 5 H, Urine Occult Blood 25 H, Urine Nitrite Negative, Urine Bilirubin Negative, Urine Urobilinogen 1 H, Ur Leukocyte Esterase Negative, Urine RBC 0-5 SEEN, Urine WBC 0 SEEN, Ur Squamous Epith Cells 0 SEEN, Urine Bacteria 0 SEEN, Urine Mucus 0 SEEN 10/05/20 04:48: WBC 12.6 H, RBC 3.92 L, Hgb 11.9 L, Hct 36.8 L, MCV 93.9, MCH 30.4, MCHC 32.3, RDW Std Deviation 46.9 H, RDW Coeff of Faustino 13.7, Plt Count 162, MPV 9.2, Immature Gran % (Auto) 0.200, Neut % (Auto) 80.9 H, Lymph % (Auto) 6.3 L, [place] % (Auto) 12.4 H, Eos % (Auto) 0.0, Baso % (Auto) 0.2, Absolute Neuts (auto) 10.2 H, Absolute Lymphs (auto) 0.79 L, Nucleated RBC % 0, Diff Path Review Reviewed 10/05/20 04:48: Sodium 137, Potassium 3.8, Chloride 107, Carbon Dioxide 23.0, Anion Gap 7, BUN 24 H, Creatinine 1.11, Estim Creat Clear Calc 52.19, Est GFR (MDRD) Af Amer 82, Est GFR (MDRD) Non-Af 68, BUN/Creatinine Ratio 21.6 H, Glucose 126 H, Calcium 8.7, Total Bilirubin 0.70, AST 18, ALT 26, Alkaline Phosphatase 90, Total Protein 7.9, Albumin 3.1 L, Globulin 4.8 H, Albumin/Globulin Ratio 0.6 L, Triglycerides 38, Cholesterol 135, LDL Cholesterol 85, VLDL Cholesterol 8, HDL Cholesterol 42, TSH 0.35 L, Free T4 1.12 10/05/20 04:48: Hemoglobin A1c 5.7 H 10/05/20 04:48: Lactic Acid 1.0 Current Medications Acetaminophen (Acetaminophen 325 Mg Tablet) 650 mg PO Q6H PRN PRN PRN Reason: Pain Score 1-10/Temp > 100.7 F Acetaminophen (Acetaminophen 325 Mg Suppository) 650 mg RECTAL Q4H PRN PRN PRN Reason: Pain Score 1-10/Temp > 100.7 F Al Hydroxide/Mg Hydroxide (Mag Hydrox/Al Hydrox/Simeth 30 Ml Udc) 30 ml PO Q6H PRN PRN PRN Reason: Gastric Burning Albuterol Sulfate (Albuterol Ih 8.5 Gm (Proair) Inhaler (200 Puffs)) 4 - 8 puff INHALATION Q4H PRN PRN PRN Reason: Dyspnea, wheezing Aspirin (Aspirin 300 Mg Suppository) 300 mg RECTAL DAILY [place] Last Admin: 10/05/20 09:49 Dose: 300 mg Documented by: Atorvastatin Calcium (Atorvastatin Calcium 20 Mg Tablet) 20 mg PO QHS [facility] Calamine/Phenol (Menthol/Lanolin/Calamine/Znox 113 Gm Tube) 1 applic TOPICAL 4X/DAY [facility]; Protocol Last Admin: 10/05/20 17:45 Dose: 1 applic Documented by: Enoxaparin Sodium (Enoxaparin 100 Mg/Ml Syringe) 90 mg SC Q12 [facility] Last Admin: 10/05/20 09:46 Dose: 90 mg Documented by: Famotidine (Famotidine 20 Mg Tablet) 20 mg PO BID [facility] Last Admin: 10/05/20 16:33 Dose: Not Given Documented by: Guaifenesin (Guaifenesin 10 Ml Udc (200mg/10ml)) 20 ml PO Q4H PRN PRN PRN Reason: COUGH Hydralazine HCl (Hydralazine 20 Mg/Ml Vial) 5 mg IV Q30M PRN PRN Reason: to maintain BP goals Sodium Chloride () 500 mls @ 999 mls/hr IV .Q31M ONE Last Infusion: 10/05/20 00:49 Dose: Infused Documented by: Sodium Chloride () 1,000 mls @ 75 mls/hr IV .[id number] [facility] Last Infusion: 10/05/20 16:56 Dose: 0 mls/hr Documented by: Sodium Chloride () 250 mls @ 15 mls/hr IV .[id number] PRN PRN Reason: Saline Flush Sodium Chloride () 250 mls @ 15 mls/hr IV .[id number] PRN PRN Reason: Additional IVPB Infusion Ampicillin Sodium/Sulbactam (Sodium 3 gm/ Sodium Chloride) 112 mls @ 150 mls/hr IV Q8 [facility] Last Infusion: 10/05/20 17:42 Dose: Infused Documented by: Metronidazole (Flagyl) 500 mg in 100 mls @ 100 mls/hr IV Q8 [facility] Last Admin: 10/05/20 17:44 Dose: 100 mls/hr Documented by: Labetalol HCl (Labetalol (Prefilled) 20 Mg/4 Ml) 20 mg IV X1 PRN PRN Reason: BLOOD PRESSURE Labetalol HCl (Labetalol (Prefilled) 20 Mg/4 Ml) 10 - 20 mg IV Q10M PRN PRN PRN Reason: to Maintain BP Goals Magnesium Hydroxide (Magnesium Hydroxide 30 Ml Udc) 30 ml PO DAILY PRN PRN PRN Reason: Constipation Melatonin (Melatonin 3 Mg Tablet) 3 mg PO QHS PRN PRN PRN Reason: INSOMNIA Ondansetron HCl (Ondansetron 4 Mg/2 Ml Vial) 4 mg IV Q8H PRN PRN PRN Reason: NAUSEA/VOMITING Prochlorperazine Edisylate (Prochlorperazine 10 Mg/2 Ml Vial) 5 mg IV Q4H PRN PRN PRN Reason: Breakthrough Nausea/Vomiting Psyllium Hydrophilic Mucilloid (Psyllium 1 Packet) 1 packet PO DAILY PRN PRN PRN Reason: Constipation Senna/Docusate Sodium (Senna/Docusate Sodium 1 Tablet) 2 tablet PO BID PRN PRN PRN Reason: Constipation Sodium Chloride (0.9% Saline Lock 10 Ml Syringe) 10 - 40 ml IV UD PRN PRN Reason: SALINE FLUSH Last Admin: 10/05/20 06:23 Dose: 10 ml Documented by: Throat Lozenges (Benzocaine/Menthol 1 Lozenge) 1 lozenge MUCOUS MEM Q2H PRN PRN PRN Reason: SORE THROAT Assessment/Plan All Active Problems (Last Reviewed 02/12/20 @ 10:[address] Hardeep Medrano MD) CVA (cerebral vascular accident) (Acute) Acute encephalopathy (Acute) Aphasia (Acute) Submandibular gland swelling (Acute) The examination is difficult due to his level of co-operation. The right neck and submandibular region is swollen but not diffusely reddened. He can open his mouth and he is able to cough and swallow. At this time I do not recommend any surgical manipulation and would maintain fluids and IV antibiotics. If airway becomes a concern then an ENT consult is warranted.
--- NOTE | 2020-10-05 20:10 | RAD_ITS ---
STUDY: X-RAY CHEST REASON FOR EXAM: Male, 80 years old. SOB TECHNIQUE: Single AP portable view of the chest. COMPARISON: 10/05/2020 ([id number]). FINDINGS: Telemetry wires overlie the chest. The lungs are well-expanded. There is vague ground glass infiltrates, most marked at the left lung base. There is no demonstrated pleural abnormality. Normal size heart. Normal mediastinum and evelina. Normal visualized pulmonary arteries. Normal visualized aortic arch and descending thoracic aorta. There are diffuse degenerative changes of the visualized thoracic spine. There is degenerative osteoarthritis of the bilateral shoulders. There is no demonstrated abnormality of the visualized soft tissue structures of the upper abdomen. RAD/Chest 1 View (Portable) IMPRESSION: Mild patchy pulmonary infiltrates most marked at the lung bases. Electronically Signed: Andrew Woody DO at 21:26 EST Tel [phone], Service support ,
[2020-10-05 21:11] LABS: Allen Test Positive; Base Excess -2 mmol/L (-2 to +2); Bicarbonate 22.1 mmol/L (22-26); Blood Gas Specimen Type ART; FI02 50; O2 Delivery Device Venti Mask; PO2 125 mmHG (75-100); SITE L Radial; SO2 99 % (95-99); Total Carbon Dioxide 23 mmol/L; pCO2 32.8 mmHg (35-45); pH 7.44 (7.35-7.45)
--- NOTE | 2020-10-05 22:25 | PCM.PN.BLA ---
Progress Note Called about patient whose oxygen saturation was 81% on 2 L of oxygen. Oxygen requirements was bumped up to Ventimask, FiO2 40% Chart reviewed. Noted maxillofacial consult note with no surgical recommendation. Repeat chest x-ray showed bibasilar patchy infiltrate. ABG was unremarkable Suspect patient is silently aspirating Recommended frequent suctioning, continue oxygen therapy STROKE Vital Signs/Narrative: Vital Signs Temp Pulse Resp BP Pulse Ox 10/05/20 21:48 100 F H 94 22 H 114/56 L 97 10/05/20 20:28 99.3 F H 94 26 H 103/52 L 93 10/05/20 19:39 100.4 F H 110 H 22 H 139/75 H 80
--- NOTE | 2020-10-05 23:10 | NURSING ---
DR MCCRARY UP TO FLOOR ASSESSING PATIENT, NO NEW ORDERS
[2020-10-06] VITALS (9 sets, daily range): BP systolic 103–118; BP diastolic 47–65; PULSE 73–90; RESP 18–20; TEMP 36.6–37.4; O2SAT 94–97
--- NOTE | 2020-10-06 00:07 | NURSING ---
RN IN PATIENT'S ROOM FREQUENTLY DOING MOUTH CARE AND SUCTIONING.
[2020-10-06] MEDS: metroNIDAZOLE 500 MG/100 ML BAG 100 MG IV ×3 (04:59→22:25)
--- NOTE | 2020-10-06 05:00 | NURSING ---
Patient refusing to cough at this time, bites down on the suction catheter. O2 96% on 35% Venti mask at this time.
--- NOTE | 2020-10-06 07:00 | NURSING ---
UPDATED DAUGHTER LOIS ABOUT PLAN OF CARE, DENIES ANY QUESTIONS AT THIS TIME
[2020-10-06] MEDS: Aspirin 300 MG Suppository RECTAL (08:08)
[2020-10-06] MEDS: Enoxaparin 100 MG/ML Syringe 90 MG SC (08:09)
[2020-10-06] MEDS: Menthol/Lanolin/Calamine/Znox 113 GM Tube 1 APPLIC TOPICAL ×3 (08:09→22:14)
[2020-10-06] MEDS: Furosemide 40 MG/4 ML Vial IV (08:16)
--- NOTE | 2020-10-06 08:24 | PCM.PROGNOTE ---
Patient Problems: Active and Suspected Problems (Last Reviewed 02/12/20 @ 10:[address] Hardeep Medrano MD) Acute encephalopathy (Acute) Aphasia (Acute) Subjective: Chief complaint: Follow-up after admission for right submandibular sialoadenitis, aphasia, and lactic acidosis and he developed hypoxia. Patient seen and examined. This morning, he is more interactive, talking coherently and fluently. He complains of pain upon opening his mouth. Overnight, patient required oxygen and then he bumped up to Ventimask. I could not examine his throat because of difficulty opening his mouth. He has been having spikes of low-grade fever, blood pressure and heart rate are stable, pulse ox is 96% on Ventimask with FiO2 of 35%. - Physical Exam Vitals/I&O's: Vital Signs Temp Pulse Resp BP Pulse Ox 97.9 F 74 20 H 105/54 L 97 10/06/20 08:18 10/06/20 08:18 10/06/20 08:18 10/06/20 08:18 10/06/20 08:18 Oxygen Flow Rate (L/min) 8 Oxygen Delivery Method Venturi Mask Weight: 204 lb 5.896 oz Body Mass Index (BMI) 30.2 Finger Stick Blood Glucose 173 Intake and Output for Last 24 Hours 10/04/20 10/05/20 10/06/20 23:59 23:59 23:59 Intake Total 2037. / 599.5 / 599.5 Balance 2037. / 599.5 / 599.5 General: Alert, Cooperative, - - Mildly short of breath. HEENT: Atraumatic, PERRLA, EOMI, Normocephalic Oral: No Gingival or Mucosal Lesions/ Ulcerations, Dry Mucosa, - - Diffuse swelling on the right side of the buccal mucosa, difficult to examine his throat. Neck: Supple, No JVD, Negative Carotid Bruits, Trachea Midline, Thyroid Normal Size and Texture Lungs: Clear to auscultation, No wheeze, No rales, Diminished, Short of Breath Cardiovascular: Regular rate, Regular Rhythm, Normal S1, Normal S2, PMI Normal Abdomen: Bowel Sounds Present, Soft, Non Tender, Non-Distended, No Hepato-splenomegaly Extremities: No clubbing, No cyanosis, No edema Skin: No rashes, No breakdown Lymphatic: No Cervical, Supraclavicular, or Inguinal Adenopathy Neurological: Cranial nerves II-XII grossly intact, Motor Exam 5/5 strength throughout Psych/Mental Status: Normal Affect, Appropriate Microbiology Past 72 Hours 10/05/20 01:36 Mucosa - Nasopharyngeal Respiratory Panel (PCR) - Final 10/05/20 00:25 Urine Catheter - Catheter Legionella Antigen - Final 10/05/20 00:25 Urine Catheter - Catheter Streptococcus pneumoniae Antigen (M - Final 10/05/20 00:34 Mucosa - Nose SARS-CoV-2 Antigen (Rapid) - Final Laboratory Results 10/05/20 04:48: Diff Path Review Reviewed 10/05/20 21:07: Specimen Type ART, Sample Site L Radial, pH 7.44, Bicarbonate Actual 22.1, Total CO2 23, Base Excess -2, O2 Saturation 99, O2 % 50, ABG pCO2 32.8 L, ABG pO2 125 H, Denny Test Positive, O2 Delivery Device Venti Mask Clinical Impression(s) from Imaging Studies Brain CT 10/04/20 23:45 IMPRESSION: Chronic involutional changes of the brain. Disproportionate prominence of the ventricles may be due to normal pressure hydrocephalus or central atrophy. No demonstrated acute intracranial process. N.B. : The above information has been verbally conveyed by Ilir Wilkinson MD to Dr. Luke Nation MD, on 10/05/2020 00:08:25 (ET). Electronically Signed: Ilir Wilkinson MD at 0:12 EST , Service support , ADDENDUM: 10/05/20 0019 IMPRESSION: Chronic involutional changes of the brain. Disproportionate prominence of the ventricles may be due to normal pressure hydrocephalus or central atrophy. No demonstrated acute intracranial process. N.B. : The above information has been verbally conveyed by Ilir Wilkinson MD to Dr. Luke Nation MD, on 10/05/2020 00:08:25 (ET). Electronically Signed: Ilir Wilkinson MD at 0:12 EST , Service support , Chest X-Ray 10/04/20 23:45 IMPRESSION: Chronic interstitial changes. No evidence for acute cardiopulmonary pathology. Electronically Signed: Ilir Wilkinson MD at 0:55 EST , Service support , Brain MRI 10/05/20 01:01 IMPRESSION: Involutional changes of the brain, as described above. No acute infarct. Electronically Signed: Bruce Kate MD at 13:01 EST Tel , Service support , Head MRA 10/05/20 01:08 IMPRESSION: Normal MRA of the head Electronically Signed: Bruce Kate MD at 13:02 EST Tel , Service support , Neck MRA 10/05/20 01:08 IMPRESSION: Normal bilateral cervical carotid and vertebral arteries. Electronically Signed: Bruce Kate MD at 13:04 EST Tel , Service support , Chest X-Ray 10/05/20 05:55 IMPRESSION: Normal x-ray examination of the chest. Electronically Signed: Bruce Kate MD at 9:31 EST Tel , Service support , Soft Tissue Neck CT 10/05/20 15:40 IMPRESSION: Gas producing infection of the right submandibular gland without well-defined abscess. Electronically Signed: Bruce Kate MD at 16:00 EST Tel , Service support , ADDENDUM: 10/05/20 1617 IMPRESSION: Gas producing infection of the right submandibular gland without well-defined abscess. N.B. : The above information has been verbally conveyed by Bruce Kate MD to Dixie Flores RN, on 10/05/2020 16:10:28 (ET). Electronically Signed: Bruce Kate MD at 16:00 EST Tel , Service support , Chest X-Ray 10/05/20 20:10 IMPRESSION: Mild patchy pulmonary infiltrates most marked at the lung bases. Electronically Signed: Andrew Woody DO at 21:26 EST Tel [phone], Service support , Current Medications Acetaminophen (Acetaminophen 325 Mg Tablet) 650 mg PO Q6H PRN PRN PRN Reason: Pain Score 1-10/Temp > 100.7 F Acetaminophen (Acetaminophen 325 Mg Suppository) 650 mg RECTAL Q4H PRN PRN PRN Reason: Pain Score 1-10/Temp > 100.7 F Al Hydroxide/Mg Hydroxide (Mag Hydrox/Al Hydrox/Simeth 30 Ml Udc) 30 ml PO Q6H PRN PRN PRN Reason: Gastric Burning Albuterol Sulfate (Albuterol Ih 8.5 Gm (Proair) Inhaler (200 Puffs)) 4 - 8 puff INHALATION Q4H PRN PRN PRN Reason: Dyspnea, wheezing Aspirin (Aspirin 300 Mg Suppository) 300 mg RECTAL DAILY [facility] Last Admin: 10/06/20 08:08 Dose: 300 mg Documented by: Atorvastatin Calcium (Atorvastatin Calcium 20 Mg Tablet) 20 mg PO QHS [facility] Last Admin: 10/05/20 19:26 Dose: Not Given Documented by: Calamine/Phenol (Menthol/Lanolin/Calamine/Znox 113 Gm Tube) 1 applic TOPICAL 4X/DAY [facility]; Protocol Last Admin: 10/06/20 08:09 Dose: 1 applic Documented by: Enoxaparin Sodium (Enoxaparin 100 Mg/Ml Syringe) 90 mg SC Q12 [facility] Last Admin: 10/06/20 08:09 Dose: 90 mg Documented by: Famotidine (Famotidine 20 Mg Tablet) 20 mg PO BID [facility] Last Admin: 10/06/20 08:18 Dose: Not Given Documented by: Guaifenesin (Guaifenesin 10 Ml Udc (200mg/10ml)) 20 ml PO Q4H PRN PRN PRN Reason: COUGH Hydralazine HCl (Hydralazine 20 Mg/Ml Vial) 5 mg IV Q30M PRN PRN Reason: to maintain BP goals Sodium Chloride () 500 mls @ 999 mls/hr IV .Q31M ONE Last Infusion: 10/05/20 00:49 Dose: Infused Documented by: Sodium Chloride () 250 mls @ 15 mls/hr IV .[id number] PRN PRN Reason: Saline Flush Sodium Chloride () 250 mls @ 15 mls/hr IV .[id number] PRN PRN Reason: Additional IVPB Infusion Ampicillin Sodium/Sulbactam (Sodium 3 gm/ Sodium Chloride) 112 mls @ 150 mls/hr IV Q8 [facility] Last Infusion: 10/06/20 08:06 Dose: Infused Documented by: Metronidazole (Flagyl) 500 mg in 100 mls @ 100 mls/hr IV Q8 [facility] Last Infusion: 10/06/20 05:59 Dose: Infused Documented by: Labetalol HCl (Labetalol (Prefilled) 20 Mg/4 Ml) 20 mg IV X1 PRN PRN Reason: BLOOD PRESSURE Labetalol HCl (Labetalol (Prefilled) 20 Mg/4 Ml) 10 - 20 mg IV Q10M PRN PRN PRN Reason: to Maintain BP Goals Magnesium Hydroxide (Magnesium Hydroxide 30 Ml Udc) 30 ml PO DAILY PRN PRN PRN Reason: Constipation Melatonin (Melatonin 3 Mg Tablet) 3 mg PO QHS PRN PRN PRN Reason: INSOMNIA Ondansetron HCl (Ondansetron 4 Mg/2 Ml Vial) 4 mg IV Q8H PRN PRN PRN Reason: NAUSEA/VOMITING Prochlorperazine Edisylate (Prochlorperazine 10 Mg/2 Ml Vial) 5 mg IV Q4H PRN PRN PRN Reason: Breakthrough Nausea/Vomiting Psyllium Hydrophilic Mucilloid (Psyllium 1 Packet) 1 packet PO DAILY PRN PRN PRN Reason: Constipation Senna/Docusate Sodium (Senna/Docusate Sodium 1 Tablet) 2 tablet PO BID PRN PRN PRN Reason: Constipation Sodium Chloride (0.9% Saline Lock 10 Ml Syringe) 10 - 40 ml IV UD PRN PRN Reason: SALINE FLUSH Last Admin: 10/05/20 06:23 Dose: 10 ml Documented by: Throat Lozenges (Benzocaine/Menthol 1 Lozenge) 1 lozenge MUCOUS MEM Q2H PRN PRN PRN Reason: SORE THROAT Medical Necessity - Tobacco Use Smoking Status: Unknown if ever smoked Tobacco Use: Non-smoker Assessment/Plan All Active Problems (Last Reviewed 02/12/20 @ 10:[address] Hardeep Medrano MD) Right submandibular sialadenitis (Acute) Acute encephalopathy (Acute) Aphasia (Acute) This is an 80 years old male patient presented to the emergency room because of reported difficulty speaking, aphasia and confusion, was admitted as a case of possible stroke, had stroke work-up was unremarkable, had tenderness on the right side of his face and right neck for which CT scan done and showed right submandibular sialadenitis. #1 acute right submandibular sialoadenitis: CT scan of the neck and soft tissue reviewed. Patient started on IV Unasyn and Flagyl. He is still having spikes of low-grade fever, leukocytosis resolved. Lactic acid is back to normal. Oral surgery consulted, no indication for surgical intervention, no abscess or collection to be drained. Blood cultures pending. COVID-19 antigen was negative. Plan to continue same treatment. #2 acute hypoxic respiratory failure: Patient required oxygen and now, he is on Ventimask with FiO2 of 30%. Patient having difficulty opening his mouth and not possible to examine his throat. There is a concern that he may start having airway obstruction secondary to the right neck swelling. ABG reviewed, was unremarkable. Plan to continue oxygen by Ventimask, close monitoring, continuous pulse ox. #3 strokelike symptoms/aphasia: Acute stroke ruled out. MRI brain showed no acute findings. MRA of the neck was unremarkable. 2D echocardiogram reviewed. He has no focal deficit on physical exam. Today, patient is more alert and talking fluently and coherent. #4 encephalopathy: It is likely due to infection in addition to baseline dementia. MRI and CT scan brain was unremarkable as above. #5 acute kidney injury: With questionable stage III chronic kidney disease. Patient received IV fluids and kidney function improved. #6 hypertension: Blood pressure stable, currently he is not on any antihypertensive medications. #7 paroxysmal atrial fibrillation: Heart rate stable. He is not on any medication for rate control, not on anticoagulation. #8 CODE STATUS: Initially, CODE STATUS was DNR CCA, no intubation. Today I spoke with the patient's daughter and I informed her about the respiratory failure that developed on the right and I mentioned that this could be due to impending airway obstruction secondary to the right submandibular swelling. Later, I called the patient's daughter again and she contacted her brothers and sister to the call. I explained to the patient's sons and daughters about the current situations and possible need for intubation and mechanical ventilation if he developed complete airway obstruction. After discussed the situation between themselves, they decided to go ahead with intubation and mechanical ventilation if needed, no CPR if cardiac arrest has to happen. Current CODE STATUS is DNR CCA with intubation. #9 DVT prophylaxis: Start subcu Lovenox. This note was generated with [email or web address] dictation software. It may contain incorrect words, spelling, and punctuation that were not noted in checking the note before signing. Inpatient E&M: 07066 [facility] Hosp L3
[2020-10-06 09:15] LABS: Absolute Lymphocyte Count 0.79 X10^3/uL (0.83-4.51); Absolute Neutrophil Count 8.2 X10^3/uL (2.0-7.7); Basophil# 0.02 X10^3/uL; Basophil% 0.2 % (0-1); Hematocrit 35.2 % (40-54); Hemoglobin 11.3 g/dL (13.0-16.5); Lymphocyte # 0.79 X10^3/ul (4.0); Lymphocyte % 8.2 % (19-41); Mean Corp Hgb Conc 32.1 g/dL (32-36); Mean Corpuscular Hgb 30.4 pg (27.0-32.0); Mean Corpuscular Volume 94.6 fL (80-94); Mean Platelet Vol. 9.6 fl (6.2-12.0); Monocyte# 0.63 X10^3/uL; Monocyte% 6.5 % (0-10); NRBC Flagged by Analyzer 0 % (0-5); Neutrophil # 8.15 X10^3/uL (2.7-7.7); Neutrophil % 84.7 % (47-70); POSITIVE MORPHOLOGY YES; Platelet Count 161 K/mm3 (150-450); RBC Distribution Width CV 13.9 % (11.6-14.6); RBC Distribution Width SD 48.4 fl (35.1-43.9); Red Blood Count 3.72 M/mm3 (4.6-6.2); White Blood Count 9.6 K/mm3 (4.4-11.0)
[2020-10-06 09:17] LABS: Differential Indicated SCAN CRITERIA MET
[2020-10-06 09:42] LABS: Anion Gap 8 (5-15); BUN 24 mg/dL (7-18); BUN/Creat Ratio 21.8 RATIO (10-20); Calcium,Total 7.7 mg/dL (8.5-10.1); Chloride 109 mmol/L (98-107); EST Glomerular Filtration Rate 68 mL/min (>60); Est Glom Filt Rate - Afr Amer 83 mL/min (>60); Estimated Creatinine Clearance 52.67 ml/min; Glucose 137 mg/dL (74-106); Potassium 3.6 mmol/L (3.5-5.1); Sodium Level 142 mmol/L (136-145)
[2020-10-06 09:48] LABS: Differential Comment SCANNED
[2020-10-07] VITALS (10 sets, daily range): BP systolic 108–119; BP diastolic 52–65; PULSE 71–99; RESP 18; TEMP 36.3–37.6; O2SAT 92–98
[2020-10-07] MEDS: metroNIDAZOLE 500 MG/100 ML BAG 100 MG IV ×3 (05:49→22:41)
--- NOTE | 2020-10-07 08:36 | PCM.PROGNOTE ---
Patient Problems: Active and Suspected Problems (Last Reviewed 02/12/20 @ 10:[address] Hardeep Medrano MD) Acute encephalopathy (Acute) Aphasia (Acute) Subjective: Chief complaint: Follow-up after admission for right submandibular sialoadenitis, aphasia, and lactic acidosis and he developed hypoxia. Patient seen and examined. No acute events overnight. He has no pain or tenderness upon palpation of the right cheek or right neck. Patient denies any pain. He still having gurgling sounds and transmitted sound to his chest. Highest temperature over the last 24 hours was 99.5 Fahrenheit blood pressure and heart rate are stable. Pulse ox is 98% on 4 L. - Physical Exam Vitals/I&O's: Vital Signs Temp Pulse Resp BP Pulse Ox 99.5 F H 78 18 119/65 98 10/07/20 04:00 10/07/20 04:00 10/07/20 04:00 10/07/20 04:00 10/07/20 04:00 Oxygen Flow Rate (L/min) 4 Oxygen Delivery Method Nasal Cannula Weight: 204 lb 5.896 oz Body Mass Index (BMI) 30.2 Finger Stick Blood Glucose 173 Intake and Output for Last 24 Hours 10/05/20 10/06/20 10/07/20 23:59 23:59 23:59 Intake Total 2037. / 1023.5 / 1023.5 212 / 212 Balance / 1023.5 / 1023.5 / General: Alert, Cooperative, No apparent distress, - - Minimally short of breath. HEENT: Atraumatic, PERRLA, EOMI, Normocephalic Oral: Moist Mucosa, No Gingival or Mucosal Lesions/ Ulcerations Neck: Supple, No JVD, Negative Carotid Bruits, Trachea Midline, Thyroid Normal Size and Texture Lungs: No wheeze, No rales, Diminished, Rhonchi, - - Decreased breath sounds bilateral, transmitted sounds. Cardiovascular: Regular rate, Regular Rhythm, Normal S1, Normal S2, PMI Normal Abdomen: Bowel Sounds Present, Soft, Non Tender, Non-Distended, No Hepato-splenomegaly Extremities: No clubbing, No cyanosis, No edema Skin: No rashes, No breakdown Lymphatic: No Cervical, Supraclavicular, or Inguinal Adenopathy Neurological: Cranial nerves II-XII grossly intact, Neuro grossly intact Psych/Mental Status: Normal Affect, Appropriate Microbiology Past 72 Hours 10/05/20 01:36 Mucosa - Nasopharyngeal Respiratory Panel (PCR) - Final 10/05/20 00:25 Urine Catheter - Catheter Legionella Antigen - Final 10/05/20 00:25 Urine Catheter - Catheter Streptococcus pneumoniae Antigen (M - Final 10/05/20 00:34 Mucosa - Nose SARS-CoV-2 Antigen (Rapid) - Final Laboratory Results 10/06/20 09:05: WBC 9.6, RBC 3.72 L, Hgb 11.3 L, Hct 35.2 L, MCV 94.6 H, MCH 30.4, MCHC 32.1, RDW Std Deviation 48.4 H, RDW Coeff of Faustino 13.9, Plt Count 161, MPV 9.6, Immature Gran % (Auto) 0.400, Neut % (Auto) 84.7 H, Lymph % (Auto) 8.2 L, Warren % (Auto) 6.5, Eos % (Auto) 0.0, Baso % (Auto) 0.2, Absolute Neuts (auto) 8.2 H, Absolute Lymphs (auto) 0.79 L, Nucleated RBC % 0, Differential Comment SCANNED 10/06/20 09:05: Sodium 142, Potassium 3.6, Chloride 109 H, Carbon Dioxide 25.0, Anion Gap 8, BUN 24 H, Creatinine 1.10, Estim Creat Clear Calc 52.67, Est GFR (MDRD) Af Amer 83, Est GFR (MDRD) Non-Af 68, BUN/Creatinine Ratio 21.8 H, Glucose 137 H, Calcium 7.7 L Current Medications Acetaminophen (Acetaminophen 325 Mg Tablet) 650 mg PO Q6H PRN PRN PRN Reason: Pain Score 1-10/Temp > 100.7 F Acetaminophen (Acetaminophen 325 Mg Suppository) 650 mg RECTAL Q4H PRN PRN PRN Reason: Pain Score 1-10/Temp > 100.7 F Al Hydroxide/Mg Hydroxide (Mag Hydrox/Al Hydrox/Simeth 30 Ml Udc) 30 ml PO Q6H PRN PRN PRN Reason: Gastric Burning Albuterol Sulfate (Albuterol Ih 8.5 Gm (Proair) Inhaler (200 Puffs)) 4 - 8 puff INHALATION Q4H PRN PRN PRN Reason: Dyspnea, wheezing Calamine/Phenol (Menthol/Lanolin/Calamine/Znox 113 Gm Tube) 1 applic TOPICAL 4X/DAY [facility]; Protocol Last Admin: 10/06/20 22:14 Dose: 1 applic Documented by: Enoxaparin Sodium (Enoxaparin 40 Mg/0.4 Ml Syringe) 40 mg SC DAILY [facility] Famotidine (Famotidine 20 Mg Tablet) 20 mg PO BID [facility] Last Admin: 10/06/20 22:32 Dose: Not Given Documented by: Guaifenesin (Guaifenesin 10 Ml Udc (200mg/10ml)) 20 ml PO Q4H PRN PRN PRN Reason: COUGH Hydralazine HCl (Hydralazine 20 Mg/Ml Vial) 5 mg IV Q30M PRN PRN Reason: to maintain BP goals Sodium Chloride () 250 mls @ 15 mls/hr IV .[id number] PRN PRN Reason: Saline Flush Sodium Chloride () 250 mls @ 15 mls/hr IV .[id number] PRN PRN Reason: Additional IVPB Infusion Ampicillin Sodium/Sulbactam (Sodium 3 gm/ Sodium Chloride) 112 mls @ 150 mls/hr IV Q8 [facility] Last Infusion: 10/07/20 08:36 Dose: Infused Documented by: Metronidazole (Flagyl) 500 mg in 100 mls @ 100 mls/hr IV Q8 [facility] Last Infusion: 10/07/20 08:36 Dose: Infused Documented by: Labetalol HCl (Labetalol (Prefilled) 20 Mg/4 Ml) 20 mg IV X1 PRN PRN Reason: BLOOD PRESSURE Labetalol HCl (Labetalol (Prefilled) 20 Mg/4 Ml) 10 - 20 mg IV Q10M PRN PRN PRN Reason: to Maintain BP Goals Magnesium Hydroxide (Magnesium Hydroxide 30 Ml Udc) 30 ml PO DAILY PRN PRN PRN Reason: Constipation Melatonin (Melatonin 3 Mg Tablet) 3 mg PO QHS PRN PRN PRN Reason: INSOMNIA Ondansetron HCl (Ondansetron 4 Mg/2 Ml Vial) 4 mg IV Q8H PRN PRN PRN Reason: NAUSEA/VOMITING Prochlorperazine Edisylate (Prochlorperazine 10 Mg/2 Ml Vial) 5 mg IV Q4H PRN PRN PRN Reason: Breakthrough Nausea/Vomiting Psyllium Hydrophilic Mucilloid (Psyllium 1 Packet) 1 packet PO DAILY PRN PRN PRN Reason: Constipation Senna/Docusate Sodium (Senna/Docusate Sodium 1 Tablet) 2 tablet PO BID PRN PRN PRN Reason: Constipation Sodium Chloride (0.9% Saline Lock 10 Ml Syringe) 10 - 40 ml IV UD PRN PRN Reason: SALINE FLUSH Last Admin: 10/05/20 06:23 Dose: 10 ml Documented by: Throat Lozenges (Benzocaine/Menthol 1 Lozenge) 1 lozenge MUCOUS MEM Q2H PRN PRN PRN Reason: SORE THROAT Medical Necessity - Tobacco Use Smoking Status: Unknown if ever smoked Tobacco Use: Non-smoker Assessment/Plan All Active Problems (Last Reviewed 02/12/20 @ 10:[address] Hardeep Medrano MD) Right submandibular sialadenitis (Acute) Acute encephalopathy (Acute) Aphasia (Acute) This is an 80 years old male patient presented to the emergency room because of reported difficulty speaking, aphasia and confusion, was admitted as a case of possible stroke, had stroke work-up was unremarkable, had tenderness on the right side of his face and right neck for which CT scan done and showed right submandibular sialadenitis. #1 acute right submandibular sialoadenitis: He is on IV Unasyn and Flagyl. No fever last night, highest was 99.5, remains on oxygen at 4 L, other vital signs are stable. CT scan of the neck and soft tissue reviewed. Lactic acid is back to normal. Oral surgery consulted, no indication for surgical intervention, no abscess or collection to be drained. Blood cultures pending. COVID-19 antigen was negative. Plan to continue same treatment. #2 acute hypoxic respiratory failure: Today, oxygenation improved, he is down to 4 L of oxygen. At this time, I doubt pneumonia. Chest x-ray reviewed, possible pulmonary vascular congestion. Patient received IV Lasix yesterday. He is already on IV Unasyn and Flagyl. Plan: Incentive spirometer, chest physiotherapy, wean off oxygen as tolerated. #3 strokelike symptoms/aphasia: Acute stroke ruled out. MRI brain showed no acute findings. MRA of the neck was unremarkable. 2D echocardiogram reviewed. He has no focal deficit on physical exam. Today, patient is more alert and talking fluently and coherent. #4 encephalopathy: It is likely due to infection in addition to baseline dementia. MRI and CT scan brain was unremarkable as above. #5 acute kidney injury: With questionable stage III chronic kidney disease. Patient received IV fluids and kidney function improved. Yesterday creatinine is 1.10, improved. #6 hypertension: Blood pressure stable, currently he is not on any antihypertensive medications. #7 paroxysmal atrial fibrillation: Heart rate stable. He is not on any medication for rate control, not on anticoagulation. #8 CODE STATUS: DNR CCA with intubation, discussed with the patient's 2 daughters and 2 sons. #9 DVT prophylaxis: Start subcu Lovenox. This note was generated with [employer] dictation software. It may contain incorrect words, spelling, and punctuation that were not noted in checking the note before signing. Inpatient E&M: 66060 Subs Hosp L2
[2020-10-07] MEDS: Menthol/Lanolin/Calamine/Znox 113 GM Tube 1 APPLIC TOPICAL ×3 (09:11→18:47)
[2020-10-07] MEDS: Enoxaparin 40 MG/0.4 ML Syringe SC (09:12)
--- NOTE | 2020-10-07 09:54 | CASEMGMT ---
machine heel seat fitter said patient's son in law (who is also his POA) gave LYUDMILA permission to talk with Mariana at [facility]. LYUDMILA called Mariana at [facility] and left her a voice mail. LYUDMILA also faxed her information on patient. Await her return call. Alize WEBB MSW
--- NOTE | 2020-10-07 14:02 | CASEMGMT ---
LYUDMILA spoke with Mariana at [facility]. She feels patient should go somewhere skilled before coming to [facility]. LYUDMILA called patient's son in law, Remberto. Introduced self and role at [facility]. LYUDMILA let him know LYUDMILA spoke with Mariana and it was agreed patient should go somewhere skilled before going to [facility]. LYUDMILA offered to leave a list of facilities in patient's room. He said someone told him about [facility] TCU and that is where they would prefer he go. They really do not want any community nursing homes. LYUDMILA told him SW will check to see if they have a bed available and let him know. LYUDMILA called Maryam on referral line and she would have a bed for patient. LYUDMILA called patient's son in law back and let him know this information. He thanked LYUDMILA for letting him know. He said he has been texting back and forth with family and everyone agrees that TCU would be the best plan at this time. SW did also let him know about the one patient in TCU that is COVID positive. SW let him know that, that patient is secluded and has his or her own nurse. He thanked LYUDMILA for letting him know. LYUDMILA updated RN as well. Plan: [facility]CU when medically ready. Alize WEBB MSW
[2020-10-07] MEDS: Dextrose 5%-Lactated Ringers 1,000 ML 60 ML IV (16:03)
[2020-10-07] MEDS: 0.9% Saline Lock 10 ML Syringe IV (21:06)
[2020-10-08] VITALS (10 sets, daily range): BP systolic 125–139; BP diastolic 61–70; PULSE 48–88; RESP 16–18; TEMP 36.9–37.6; O2SAT 93–95; BMI 30.2
[2020-10-08] MEDS: metroNIDAZOLE 500 MG/100 ML BAG 100 MG IV ×3 (05:17→22:10)
[2020-10-08] MEDS: 0.9% Saline Lock 10 ML Syringe IV (05:18)
[2020-10-08 06:23] LABS: Absolute Lymphocyte Count 0.82 X10^3/uL (0.83-4.51); Absolute Neutrophil Count 8.3 X10^3/uL (2.0-7.7); Basophil# 0.02 X10^3/uL; Basophil% 0.2 % (0-1); Eosinophil# 0.02 X10^3/uL; Eosinophils% 0.2 % (0-5); Hematocrit 33.7 % (40-54); Lymphocyte # 0.82 X10^3/ul (4.0); Lymphocyte % 8.2 % (19-41); Mean Corp Hgb Conc 32.6 g/dL (32-36); Mean Corpuscular Hgb 30.4 pg (27.0-32.0); Mean Corpuscular Volume 93.1 fL (80-94); Mean Platelet Vol. 9.6 fl (6.2-12.0); Monocyte# 0.78 X10^3/uL; Monocyte% 7.8 % (0-10); NRBC Flagged by Analyzer 0 % (0-5); Neutrophil # 8.29 X10^3/uL (2.7-7.7); Platelet Count 194 K/mm3 (150-450); RBC Distribution Width CV 13.9 % (11.6-14.6); RBC Distribution Width SD 47.3 fl (35.1-43.9); Red Blood Count 3.62 M/mm3 (4.6-6.2)
[2020-10-08 06:50] LABS: Anion Gap 5 (5-15); BUN 29 mg/dL (7-18); BUN/Creat Ratio 31.6 RATIO (10-20); Chloride 115 mmol/L (98-107); Creatinine, Serum 0.92 mg/dL (0.70-1.30); EST Glomerular Filtration Rate 84 mL/min (>60); Est Glom Filt Rate - Afr Amer 102 mL/min (>60); Estimated Creatinine Clearance 62.97 ml/min; Glucose 127 mg/dL (74-106); Potassium 3.3 mmol/L (3.5-5.1); Sodium Level 146 mmol/L (136-145)
--- NOTE | 2020-10-08 07:48 | CPS ---
Encouraged patient to clear secretions, patient refusing to cough and allow suctioning o2 sat's 93% on RA at this time.
--- NOTE | 2020-10-08 08:06 | PCM.PROGNOTE ---
Patient Problems: Active and Suspected Problems (Last Reviewed 02/12/20 @ 10:[address] Hardeep Medrano MD) Acute encephalopathy (Acute) Aphasia (Acute) Subjective: Chief complaint: Follow-up after admission for right submandibular sialoadenitis, aphasia, and lactic acidosis and he developed hypoxia. Patient seen and examined. No acute events overnight. He still having trouble with secretions although he is down to room air. He still having pain on deep palpation to the right mandible and the right side of his neck. Highest temperature overnight was 99.6 Fahrenheit, blood pressure and heart rate are stable, pulse ox is 93% on room air. - Physical Exam Vitals/I&O's: Vital Signs Temp Pulse Resp BP Pulse Ox 99.6 F H 76 16 127/70 H 93 10/08/20 03:05 10/08/20 07:20 10/08/20 03:05 10/08/20 03:05 10/08/20 06:46 Oxygen Flow Rate (L/min) 3 Oxygen Delivery Method Room Air Weight: 204 lb 5.896 oz Body Mass Index (BMI) 30.2 Finger Stick Blood Glucose 173 Intake and Output for Last 24 Hours 10/06/20 10/07/20 10/08/20 23:59 23:59 23:59 Intake Total 1023.5 / 1023.5 961.33 / 961.33 500 / 500 Balance 1023.5 / 1023.5 961.33 / 961.33 500 / 500 General: Alert, Cooperative, No apparent distress HEENT: Atraumatic, PERRLA, EOMI, Normocephalic Oral: Moist Mucosa, No Gingival or Mucosal Lesions/ Ulcerations Neck: Supple, No JVD, Negative Carotid Bruits, Trachea Midline, Thyroid Normal Size and Texture Lungs: No wheeze, No rales, Diminished, Rhonchi, - - Diminished breath sounds bilateral. Cardiovascular: Regular rate, Regular Rhythm, Normal S1, Normal S2, PMI Normal Abdomen: Bowel Sounds Present, Soft, Non Tender, Non-Distended, No Hepato-splenomegaly Extremities: No clubbing, No cyanosis, No edema Skin: No rashes, No breakdown Lymphatic: No Cervical, Supraclavicular, or Inguinal Adenopathy Neurological: Cranial nerves II-XII grossly intact, Neuro grossly intact Psych/Mental Status: Normal Affect, Appropriate, Alert and oriented to time, place, person, mood and affect Microbiology Past 72 Hours 10/05/20 00:56 Blood Culture (Wb) - Anticubital Right Blood Culture - Preliminary No growth in 48 hours. 10/05/20 00:40 Blood Culture (Wb) - Left Hand Blood Culture - Preliminary No growth in 48 hours. 10/05/20 01:36 Mucosa - Nasopharyngeal Respiratory Panel (PCR) - Final 10/05/20 00:25 Urine Catheter - Catheter Legionella Antigen - Final 10/05/20 00:25 Urine Catheter - Catheter Streptococcus pneumoniae Antigen (M - Final Laboratory Results 10/08/20 06:18: WBC 10.0, RBC 3.62 L, Hgb 11.0 L, Hct 33.7 L, MCV 93.1, MCH 30.4, MCHC 32.6, RDW Std Deviation 47.3 H, RDW Coeff of Faustino 13.9, Plt Count 194, MPV 9.6, Immature Gran % (Auto) 0.600, Neut % (Auto) 83.0 H, Lymph % (Auto) 8.2 L, Harnett % (Auto) 7.8, Eos % (Auto) 0.2, Baso % (Auto) 0.2, Absolute Neuts (auto) 8.3 H, Absolute Lymphs (auto) 0.82 L, Nucleated RBC % 0 10/08/20 06:18: Sodium 146 H, Potassium 3.3 L, Chloride 115 H, Carbon Dioxide 26.0, Anion Gap 5, BUN 29 H, Creatinine 0.92, Estim Creat Clear Calc 62.97, Est GFR (MDRD) Af Amer 102, Est GFR (MDRD) Non-Af 84, BUN/Creatinine Ratio 31.6 H, Glucose 127 H, Calcium 8.0 L Current Medications Acetaminophen (Acetaminophen 325 Mg Tablet) 650 mg PO Q6H PRN PRN PRN Reason: Pain Score 1-10/Temp > 100.7 F Acetaminophen (Acetaminophen 325 Mg Suppository) 650 mg RECTAL Q4H PRN PRN PRN Reason: Pain Score 1-10/Temp > 100.7 F Al Hydroxide/Mg Hydroxide (Mag Hydrox/Al Hydrox/Simeth 30 Ml Udc) 30 ml PO Q6H PRN PRN PRN Reason: Gastric Burning Albuterol Sulfate (Albuterol Ih 8.5 Gm (Proair) Inhaler (200 Puffs)) 4 - 8 puff INHALATION Q4H PRN PRN PRN Reason: Dyspnea, wheezing Calamine/Phenol (Menthol/Lanolin/Calamine/Znox 113 Gm Tube) 1 applic TOPICAL 4X/DAY [facility]; Protocol Last Admin: 10/07/20 21:16 Dose: Not Given Documented by: Enoxaparin Sodium (Enoxaparin 40 Mg/0.4 Ml Syringe) 40 mg SC DAILY [facility] Last Admin: 10/07/20 09:12 Dose: 40 mg Documented by: Famotidine (Famotidine 20 Mg Tablet) 20 mg PO BID [facility] Last Admin: 10/07/20 19:35 Dose: Not Given Documented by: Guaifenesin (Guaifenesin 10 Ml Udc (200mg/10ml)) 20 ml PO Q4H PRN PRN PRN Reason: COUGH Hydralazine HCl (Hydralazine 20 Mg/Ml Vial) 5 mg IV Q30M PRN PRN Reason: to maintain BP goals Sodium Chloride () 250 mls @ 15 mls/hr IV .[id number] PRN PRN Reason: Saline Flush Last Infusion: 10/07/20 22:41 Dose: 0 mls/hr Documented by: Sodium Chloride () 250 mls @ 15 mls/hr IV .[id number] PRN PRN Reason: Additional IVPB Infusion Ampicillin Sodium/Sulbactam (Sodium 3 gm/ Sodium Chloride) 112 mls @ 150 mls/hr IV Q8 [facility] Last Admin: 10/08/20 06:41 Dose: 150 mls/hr Documented by: Metronidazole (Flagyl) 500 mg in 100 mls @ 100 mls/hr IV Q8 [facility] Last Infusion: 10/08/20 06:28 Dose: Infused Documented by: Dextrose/Lactated Ringer's () 1,000 mls @ 60 mls/hr IV .[id number] [facility] Last Infusion: 10/08/20 05:25 Dose: 0 mls/hr Documented by: Potassium Chloride () 10 meq in 100 mls @ 100 mls/hr IV BOLUS Q1H [facility] Stop: 10/08/20 09:59 Labetalol HCl (Labetalol (Prefilled) 20 Mg/4 Ml) 20 mg IV X1 PRN PRN Reason: BLOOD PRESSURE Labetalol HCl (Labetalol (Prefilled) 20 Mg/4 Ml) 10 - 20 mg IV Q10M PRN PRN PRN Reason: to Maintain BP Goals Magnesium Hydroxide (Magnesium Hydroxide 30 Ml Udc) 30 ml PO DAILY PRN PRN PRN Reason: Constipation Melatonin (Melatonin 3 Mg Tablet) 3 mg PO QHS PRN PRN PRN Reason: INSOMNIA Ondansetron HCl (Ondansetron 4 Mg/2 Ml Vial) 4 mg IV Q8H PRN PRN PRN Reason: NAUSEA/VOMITING Prochlorperazine Edisylate (Prochlorperazine 10 Mg/2 Ml Vial) 5 mg IV Q4H PRN PRN PRN Reason: Breakthrough Nausea/Vomiting Psyllium Hydrophilic Mucilloid (Psyllium 1 Packet) 1 packet PO DAILY PRN PRN PRN Reason: Constipation Senna/Docusate Sodium (Senna/Docusate Sodium 1 Tablet) 2 tablet PO BID PRN PRN PRN Reason: Constipation Sodium Chloride (0.9% Saline Lock 10 Ml Syringe) 10 - 40 ml IV UD PRN PRN Reason: SALINE FLUSH Last Admin: 10/08/20 05:18 Dose: 10 ml Documented by: Throat Lozenges (Benzocaine/Menthol 1 Lozenge) 1 lozenge MUCOUS MEM Q2H PRN PRN PRN Reason: SORE THROAT Medical Necessity - Tobacco Use Smoking Status: Unknown if ever smoked Tobacco Use: Non-smoker Assessment/Plan All Active Problems (Last Reviewed 02/12/20 @ 10:[address] Hardeep Medrano MD) Right submandibular sialadenitis (Acute) Acute encephalopathy (Acute) Aphasia (Acute) This is an 80 years old male patient presented to the emergency room because of reported difficulty speaking, aphasia and confusion, was admitted as a case of possible stroke, had stroke work-up was unremarkable, had tenderness on the right side of his face and right neck for which CT scan done and showed right submandibular sialadenitis. #1 acute right submandibular sialoadenitis: Remained on IV Unasyn and Flagyl. Highest temperature overnight was 99.6 Fahrenheit, leukocytosis resolved, still having localized tenderness to the right cheek and right side of the neck. Lactic acid is back to normal. Oral surgery consulted, no indication for surgical intervention, no abscess or collection to be drained. Blood cultures showed no growth in 48 hours. COVID-19 antigen was negative. Plan to continue same treatment, may need to discuss the case again with the oral surgeon. #2 acute hypoxic respiratory failure: Today, oxygenation significant improved, he is down to room air, pulse ox is 93%. Pneumonia ruled out. Patient received IV Lasix yesterday. He is already on IV Unasyn and Flagyl as above. Plan as above. #3 dysphagia/trouble swallowing: This is likely due to the painful salivary gland. Acute stroke ruled out. Speech therapy has been seeing the patient and kept him on n.p.o. Plan to have speech therapy reevaluate and start appropriate diet. #4 strokelike symptoms/aphasia: Acute stroke ruled out. MRI brain showed no acute findings. MRA of the neck was unremarkable. 2D echocardiogram reviewed. He has no focal deficit on physical exam. Because of secretions, he still having some trouble talking fluently but able to answer questions appropriately. #5 encephalopathy: It is likely due to infection in addition to baseline dementia. MRI and CT scan brain was unremarkable as above. #6 acute kidney injury: With questionable stage III chronic kidney disease. Patient received IV fluids and kidney function improved. Today's creatinine is 0.92. #7 hypertension: Blood pressure stable, currently he is not on any antihypertensive medications. #8 paroxysmal atrial fibrillation: Heart rate stable. He is not on any medication for rate control, not on anticoagulation. #9 CODE STATUS: DNR CCA with intubation, discussed with the patient's 2 daughters and 2 sons. #10 DVT prophylaxis: Continue subcu Lovenox. This note was generated with [employer] dictation software. It may contain incorrect words, spelling, and punctuation that were not noted in checking the note before signing. Inpatient E&M: 39383 Subs Hosp L2
[2020-10-08] MEDS: Menthol/Lanolin/Calamine/Znox 113 GM Tube 1 APPLIC TOPICAL ×4 (08:35→21:17)
[2020-10-08] MEDS: Enoxaparin 40 MG/0.4 ML Syringe SC (08:47)
[2020-10-08] MEDS: Potassium Chloride 10mEq/100mL 10 MEQ/100 ML IV.SOLN. 100 MEQ IV BOLUS ×2 (08:55→10:07)
[2020-10-08] MEDS: Dextrose 5%-Lactated Ringers 1,000 ML 60 ML IV (17:12)
--- NOTE | 2020-10-08 20:00 | NURSING ---
Pt refusing to be suctioned, bites down and clenches teeth together. Unable to clear secretions.
[2020-10-09] VITALS (9 sets, daily range): BP systolic 128–143; BP diastolic 55–88; PULSE 64–86; RESP 18; TEMP 36.4–36.8; O2SAT 92–95
[2020-10-09] MEDS: metroNIDAZOLE 500 MG/100 ML BAG 100 MG IV ×3 (06:05→22:31)
--- NOTE | 2020-10-09 08:04 | PCM.PROGNOTE ---
Patient Problems: Active and Suspected Problems (Last Reviewed 02/12/20 @ 10:[address] Hardeep Medrano MD) Acute encephalopathy (Acute) Aphasia (Acute) Subjective: Chief complaint: Follow-up after admission for right submandibular sialoadenitis, aphasia, and acute kidney injury. Patient seen and examined. No acute events overnight. He is still having trouble swallowing his secretions. He denied any pain. His vital signs are stable, afebrile, pulse ox is 95% on room air. - Physical Exam Vitals/I&O's: Vital Signs Temp Pulse Resp BP Pulse Ox 97.5 F L 72 18 128/86 H 95 10/09/20 04:00 10/09/20 07:45 10/09/20 04:00 10/09/20 04:00 10/09/20 04:00 Oxygen Flow Rate (L/min) 3 Oxygen Delivery Method Room Air Weight: 204 lb 5.896 oz Body Mass Index (BMI) 30.2 Finger Stick Blood Glucose 173 Intake and Output for Last 24 Hours 10/07/20 10/08/20 10/09/20 23:59 23:59 23:59 Intake Total 961.33 / 961.33 1817.75 / 1817.75 569 / 569 Balance 961.33 / 961.33 1817.75 / 1817.75 569 / 569 General: Alert, Cooperative, No apparent distress HEENT: Atraumatic, PERRLA, EOMI, Normocephalic Oral: Moist Mucosa, No Gingival or Mucosal Lesions/ Ulcerations Neck: Supple, No JVD, Negative Carotid Bruits, Trachea Midline, Thyroid Normal Size and Texture Lungs: No wheeze, No rales, Diminished, Rhonchi, - - Diminished breath sounds bilateral,. Cardiovascular: Regular rate, Regular Rhythm, Normal S1, Normal S2, PMI Normal Abdomen: Bowel Sounds Present, Soft, Non Tender, Non-Distended, No Hepato-splenomegaly Extremities: No clubbing, No cyanosis, No edema Skin: No rashes, No breakdown Lymphatic: No Cervical, Supraclavicular, or Inguinal Adenopathy Neurological: Cranial nerves II-XII grossly intact, Neuro grossly intact Psych/Mental Status: Normal Affect, Appropriate, Alert and oriented to time, place, person, mood and affect Microbiology Past 72 Hours 10/05/20 00:56 Blood Culture (Wb) - Anticubital Right Blood Culture - Preliminary No growth in 48 hours. 10/05/20 00:40 Blood Culture (Wb) - Left Hand Blood Culture - Preliminary No growth in 48 hours. Current Medications Acetaminophen (Acetaminophen 325 Mg Tablet) 650 mg PO Q6H PRN PRN PRN Reason: Pain Score 1-10/Temp > 100.7 F Acetaminophen (Acetaminophen 325 Mg Suppository) 650 mg RECTAL Q4H PRN PRN PRN Reason: Pain Score 1-10/Temp > 100.7 F Al Hydroxide/Mg Hydroxide (Mag Hydrox/Al Hydrox/Simeth 30 Ml Udc) 30 ml PO Q6H PRN PRN PRN Reason: Gastric Burning Albuterol Sulfate (Albuterol Ih 8.5 Gm (Proair) Inhaler (200 Puffs)) 4 - 8 puff INHALATION Q4H PRN PRN PRN Reason: Dyspnea, wheezing Calamine/Phenol (Menthol/Lanolin/Calamine/Znox 113 Gm Tube) 1 applic TOPICAL 4X/DAY [facility]; Protocol Last Admin: 10/08/20 21:17 Dose: 1 applic Documented by: Enoxaparin Sodium (Enoxaparin 40 Mg/0.4 Ml Syringe) 40 mg SC DAILY [facility] Last Admin: 10/08/20 08:47 Dose: 40 mg Documented by: Famotidine (Famotidine 20 Mg Tablet) 20 mg PO BID [facility] Last Admin: 10/08/20 21:10 Dose: Not Given Documented by: Guaifenesin (Guaifenesin 10 Ml Udc (200mg/10ml)) 20 ml PO Q4H PRN PRN PRN Reason: COUGH Hydralazine HCl (Hydralazine 20 Mg/Ml Vial) 5 mg IV Q30M PRN PRN Reason: to maintain BP goals Sodium Chloride () 250 mls @ 15 mls/hr IV .[id number] PRN PRN Reason: Saline Flush Last Infusion: 10/08/20 17:12 Dose: 0 mls/hr Documented by: Sodium Chloride () 250 mls @ 15 mls/hr IV .[id number] PRN PRN Reason: Additional IVPB Infusion Ampicillin Sodium/Sulbactam (Sodium 3 gm/ Sodium Chloride) 112 mls @ 150 mls/hr IV Q8 [facility] Last Infusion: 10/09/20 06:05 Dose: Infused Documented by: Metronidazole (Flagyl) 500 mg in 100 mls @ 100 mls/hr IV Q8 [facility] Last Infusion: 10/09/20 07:42 Dose: Infused Documented by: Dextrose/Lactated Ringer's () 1,000 mls @ 60 mls/hr IV .[id number] [facility] Last Infusion: 10/09/20 07:42 Dose: 60 mls/hr Documented by: Labetalol HCl (Labetalol (Prefilled) 20 Mg/4 Ml) 20 mg IV X1 PRN PRN Reason: BLOOD PRESSURE Labetalol HCl (Labetalol (Prefilled) 20 Mg/4 Ml) 10 - 20 mg IV Q10M PRN PRN PRN Reason: to Maintain BP Goals Magnesium Hydroxide (Magnesium Hydroxide 30 Ml Udc) 30 ml PO DAILY PRN PRN PRN Reason: Constipation Melatonin (Melatonin 3 Mg Tablet) 3 mg PO QHS PRN PRN PRN Reason: INSOMNIA Ondansetron HCl (Ondansetron 4 Mg/2 Ml Vial) 4 mg IV Q8H PRN PRN PRN Reason: NAUSEA/VOMITING Prochlorperazine Edisylate (Prochlorperazine 10 Mg/2 Ml Vial) 5 mg IV Q4H PRN PRN PRN Reason: Breakthrough Nausea/Vomiting Psyllium Hydrophilic Mucilloid (Psyllium 1 Packet) 1 packet PO DAILY PRN PRN PRN Reason: Constipation Senna/Docusate Sodium (Senna/Docusate Sodium 1 Tablet) 2 tablet PO BID PRN PRN PRN Reason: Constipation Sodium Chloride (0.9% Saline Lock 10 Ml Syringe) 10 - 40 ml IV UD PRN PRN Reason: SALINE FLUSH Last Admin: 10/08/20 05:18 Dose: 10 ml Documented by: Throat Lozenges (Benzocaine/Menthol 1 Lozenge) 1 lozenge MUCOUS MEM Q2H PRN PRN PRN Reason: SORE THROAT Medical Necessity - Tobacco Use Smoking Status: Unknown if ever smoked Tobacco Use: Non-smoker Assessment/Plan All Active Problems (Last Reviewed 02/12/20 @ 10:[address] Hardeep Medrano MD) Right submandibular sialadenitis (Acute) Acute encephalopathy (Acute) Aphasia (Acute) This is an 80 years old male patient presented to the emergency room because of reported difficulty speaking, aphasia and confusion, was admitted as a case of possible stroke, had stroke work-up was unremarkable, had tenderness on the right side of his face and right neck for which CT scan done and showed right submandibular sialadenitis. #1 acute right submandibular sialoadenitis: Remained on IV Unasyn and Flagyl. He has been afebrile, other vitals are stable, no leukocytosis. He still having difficulties swallowing, not allowing nursing staff to do suctioning. Oral surgery consulted, no indication for surgical intervention, no abscess or collection to be drained. Blood cultures showed no growth in 48 hours. COVID-19 antigen was negative. Case discussed again with Dr. Sullivan and he will evaluate the patient again today. I may consider consulting ENT for evaluation. Plan to continue same treatment. #2 acute hypoxic respiratory failure: Today, oxygenation significant improved, he is down to room air, pulse ox is 95%. Pneumonia ruled out. #3 dysphagia/trouble swallowing: This is likely due to the painful salivary gland. Acute stroke ruled out. Speech therapy has been seeing the patient and kept him on n.p.o. may consider ENT evaluation. #4 strokelike symptoms/aphasia: Acute stroke ruled out. MRI brain showed no acute findings. MRA of the neck was unremarkable. 2D echocardiogram reviewed. He has no focal deficit on physical exam. Because of secretions, he still having some trouble talking fluently but able to answer questions appropriately. #5 encephalopathy: It is likely due to infection in addition to baseline dementia. MRI and CT scan brain was unremarkable as above. #6 acute kidney injury: With questionable stage III chronic kidney disease. Patient received IV fluids and kidney function improved. Yesterday's creatinine is 0.92. #7 hypertension: Blood pressure stable, currently he is not on any antihypertensive medications. #8 paroxysmal atrial fibrillation: Heart rate stable. He is not on any medication for rate control, not on anticoagulation. #9 CODE STATUS: DNR CCA with intubation, discussed with the patient's 2 daughters and 2 sons. #10 DVT prophylaxis: Continue subcu Lovenox. This note was generated with [employer] dictation software. It may contain incorrect words, spelling, and punctuation that were not noted in checking the note before signing. Inpatient E&M: 82852 Subs Hosp L2
[2020-10-09] MEDS: Menthol/Lanolin/Calamine/Znox 113 GM Tube 1 APPLIC TOPICAL ×4 (08:18→22:32)
[2020-10-09] MEDS: Enoxaparin 40 MG/0.4 ML Syringe SC (08:19)
[2020-10-09] MEDS: Potassium Chloride 10mEq/100mL 10 MEQ/100 ML IV.SOLN. 100 MEQ IV BOLUS ×2 (10:39→11:33)
--- NOTE | 2020-10-09 15:04 | PCM.PN.BLA ---
Progress Note I was able to get a much better exam today as the patient appeared very alert and somewhat oriented. He is able to open his mouth fully. The dentition appears to be in a fair to good state of repair. I see no odontogenic sources for right submandibular swelling and the CT scan reveals right sided submandibular gland sialoadenitis. He can swallow and talk but speech is somewhat gargled probably from secretions. He appears in no distress at this moment. I have no surgical interventions to offer at this time. The swelling persists right submandibular area and does not appear to have changed much from 3 days ago. I would continue present management as I do not see surgical intervention as a necessity and particularly the patients ability to tolerate general anesthesia. STROKE Vital Signs/Narrative: Vital Signs Temp Pulse Resp BP Pulse Ox 10/09/20 14:40 85 10/09/20 14:05 98.2 F 78 18 130/55 H 93
[2020-10-09] MEDS: Dextrose 5%-Lactated Ringers 1,000 ML 60 ML IV (16:41)
--- NOTE | 2020-10-09 18:15 | PCM.PN.BLA ---
Progress Note Asked to see the patient at the request of Dr. Miles for dysphagia 80 yo white male admitted for a CVA work up after experiencing a change in mental status and aphasia. CVA work up was negative. He was found to have a right submandibular neck infection (gas forming). He was placed on IV antibiotics and has improved from an infection standpoint. However, he is still not able to handle his secretions or tolerate sips. Past Medical History Past Medical History (Chronic Problems): Chronic Problems (Last Reviewed 02/12/20 @ 10:[address] Hardeep Medrano MD) Dementia (Chronic) CKD (chronic kidney disease), stage III (Chronic) Normocytic anemia (Chronic) Paroxysmal atrial fibrillation (Chronic) Essential (primary) hypertension (Chronic) Medical History: Medical History (Last Reviewed 02/12/20 @ 10:[address] Hardeep Medrano MD) Paroxysmal atrial fibrillation (Chronic) I48.0 Essential (primary) hypertension (Chronic) I10 Basal cell carcinoma C44.91 Left cheek Deep vein thrombosis (DVT) of left lower extremity Onset Date: ~11/2015 I82.402 Diverticulosis K57.90 Hearing loss H91.90 Hemorrhoids K64.9 Sleep apnea G47.30 Allergies No Known Allergies Allergy (Verified 02/12/20 09:46) Home Medications: Ambulatory Orders Medication Instructions Recorded rivaroxaban 20 mg tablet 20 mg PO DAILY #30 tab 03/04/20 Surgical History: Surgical History (Last Reviewed 02/12/20 @ 10:[address] Hardeep Medrano MD) H/O repair of right rotator cuff Z98.890 History of basal cell carcinoma excision Z98.890, Z85.828 History of cataract surgery Z98.49 History of nasal septoplasty Z98.890 Surgical History: - - Cataract surgery, nasal septoplasty, right rotator cuff surgery, basal cell carcinoma excision. Psychiatric History: No pertinent psych hx Lives: Alone Smoking Status: Never smoker Tobacco Use: Non-smoker Alcohol: None Drugs: None - *Family History Maternal Family History: Family History (Last Reviewed 02/12/20 @ 10:[address] Hardeep Medrano MD) Brother Blood clot in vein Hypertension Heart disease Sister CVA (cerebral vascular accident) Mother Heart disease Diabetes History Items: Diabetes, Heart Disease Paternal Family History: Family History (Last Reviewed 02/12/20 @ 10:[address] Hardeep Medrano MD) Brother Blood clot in vein Hypertension Heart disease Sister CVA (cerebral vascular accident) Mother Heart disease Diabetes History Items: - - Son denies any market paternal family history in his paternal grandfather including heart disease, diabetes, cancer. Patient Problems: Active and Suspected Problems (Last Reviewed 02/12/20 @ 10:[address] Hardeep Medrano MD) CVA (cerebral vascular accident) (Acute) Acute encephalopathy (Acute) Aphasia (Acute) Submandibular gland swelling (Acute) PE: Awake, very hard of hearing, mildly combative with the exam He is gurgling his own secretions Nose- septum midline. No masses or bleeding M/OP- No floor of mouth swelling or trismus. Pharynx is normal Neck-significant induration of the right neck. Indurated and enlarged right submandibular gland. no subcutaneous air palpable Flexible laryngoscopy- 4% lidocaine was placed in the right nasal cavity. The nose, nasopharynx and soft palate are normal. The base of tongue and epiglottis appear normal. There is extensive frothy secretions covering the larynx and pyriform sinuses bilaterally. The cords could not be visualized. CT Neck on 10/05/20- + subcutaneous air in the right neck with extensive stranding and of the right submandibular space and enlargement of the right submandibular gland. The edema extends medially and is causing effacement of the right pyriform sinus. No abscess or fluid collections. A: Deep neck space infection Dysphagia secondary to deep neck space infection P: He will need continued IV antibiotics and time. Hopefully, the right pyriform sinus will improve (less swelling) enough to allow him to swallow normally. I would hold off on trying to feed him until his mental status and his ability to handle his own secretions improve (although, I was able to get him to swallow on demand). If enteral feeds/access are needed sooner than later he will either need an NG tube or a PEG tube. I spoke with Dr. Miles regarding these findings. STROKE Vital Signs/Narrative: Vital Signs Pulse 10/09/20 14:40 85
[2020-10-09] MEDS: Ketorolac 30 MG/ML Syringe IV (18:43)
[2020-10-09] MEDS: dexAMETHasone 4 MG/ML Vial IV (18:44)
[2020-10-10] VITALS (11 sets, daily range): BP systolic 130–166; BP diastolic 77–99; PULSE 66–102; RESP 18–19; TEMP 36.4–36.8; O2SAT 95–98
[2020-10-10] MEDS: metroNIDAZOLE 500 MG/100 ML BAG 100 MG IV ×3 (06:29→20:54)
[2020-10-10] MEDS: dexAMETHasone 4 MG/ML Vial IV ×2 (06:30→14:19)
[2020-10-10] MEDS: Ketorolac 30 MG/ML Syringe IV ×3 (06:30→21:01)
[2020-10-10] MEDS: 0.9% Saline Lock 10 ML Syringe IV ×3 (06:31→22:05)
--- NOTE | 2020-10-10 08:03 | PCM.PROGNOTE ---
Patient Problems: Active and Suspected Problems (Last Reviewed 02/12/20 @ 10:[address] Hardeep Medrano MD) Acute encephalopathy (Acute) Aphasia (Acute) Subjective: Chief complaint: Follow-up after admission for right submandibular sialoadenitis/deep neck space infection, aphasia, and acute kidney injury. Patient seen and examined. No acute events overnight. Today, he is more talkative, talking fluently, having less secretions in his mouth. He denied any complaints. His vital signs are stable - Physical Exam Vitals/I&O's: Vital Signs Temp Pulse Resp BP Pulse Ox 98.3 F 66 18 130/77 H 95 10/10/20 06:25 10/10/20 07:00 10/10/20 06:25 10/10/20 06:25 10/10/20 06:25 Oxygen Flow Rate (L/min) 3 Oxygen Delivery Method Room Air Weight: 204 lb 5.896 oz Body Mass Index (BMI) 30.2 Finger Stick Blood Glucose 173 Intake and Output for Last 24 Hours 10/08/20 10/09/20 10/10/20 23:59 23:59 23:59 Intake Total 1817.75 / 1817.75 1825 / 1825 471 / 471 Balance 1817.75 / 1817.75 1825 / 1825 471 / 471 General: Alert, Cooperative, No apparent distress, Disoriented HEENT: Atraumatic, PERRLA, EOMI, Normocephalic Oral: Moist Mucosa, No Gingival or Mucosal Lesions/ Ulcerations Neck: Supple, No JVD, Negative Carotid Bruits, Trachea Midline, Thyroid Normal Size and Texture Lungs: Clear to auscultation, No rhonchi, No wheeze, No rales, Diminished Cardiovascular: Regular rate, Regular Rhythm, Normal S1, Normal S2, PMI Normal Abdomen: Bowel Sounds Present, Soft, Non Tender, Non-Distended, No Hepato-splenomegaly Extremities: No clubbing, No cyanosis, No edema Skin: No rashes, No breakdown Lymphatic: No Cervical, Supraclavicular, or Inguinal Adenopathy Neurological: Cranial nerves II-XII grossly intact, Neuro grossly intact Psych/Mental Status: Normal Affect, Appropriate, Alert and oriented to time, place, person, mood and affect Microbiology Past 72 Hours 10/05/20 00:56 Blood Culture (Wb) - Anticubital Right Blood Culture - Final No growth in 5 days. 10/05/20 00:40 Blood Culture (Wb) - Left Hand Blood Culture - Final No growth in 5 days. Current Medications Acetaminophen (Acetaminophen 325 Mg Tablet) 650 mg PO Q6H PRN PRN PRN Reason: Pain Score 1-10/Temp > 100.7 F Acetaminophen (Acetaminophen 325 Mg Suppository) 650 mg RECTAL Q4H PRN PRN PRN Reason: Pain Score 1-10/Temp > 100.7 F Al Hydroxide/Mg Hydroxide (Mag Hydrox/Al Hydrox/Simeth 30 Ml Udc) 30 ml PO Q6H PRN PRN PRN Reason: Gastric Burning Albuterol Sulfate (Albuterol Ih 8.5 Gm (Proair) Inhaler (200 Puffs)) 4 - 8 puff INHALATION Q4H PRN PRN PRN Reason: Dyspnea, wheezing Calamine/Phenol (Menthol/Lanolin/Calamine/Znox 113 Gm Tube) 1 applic TOPICAL 4X/DAY [facility]; Protocol Last Admin: 10/09/20 22:32 Dose: 1 applic Documented by: Dexamethasone Sodium Phosphate (Dexamethasone 4 Mg/Ml Vial) 4 mg IV Q8 [facility] Stop: 10/10/20 14:01 Last Admin: 10/10/20 06:30 Dose: 4 mg Documented by: Enoxaparin Sodium (Enoxaparin 40 Mg/0.4 Ml Syringe) 40 mg SC DAILY [facility] Last Admin: 10/09/20 08:19 Dose: 40 mg Documented by: Famotidine (Famotidine 20 Mg Tablet) 20 mg PO BID [facility] Last Admin: 10/09/20 22:32 Dose: Not Given Documented by: Guaifenesin (Guaifenesin 10 Ml Udc (200mg/10ml)) 20 ml PO Q4H PRN PRN PRN Reason: COUGH Hydralazine HCl (Hydralazine 20 Mg/Ml Vial) 5 mg IV Q30M PRN PRN Reason: to maintain BP goals Sodium Chloride () 250 mls @ 15 mls/hr IV .[id number] PRN PRN Reason: Saline Flush Last Infusion: 10/08/20 17:12 Dose: 0 mls/hr Documented by: Sodium Chloride () 250 mls @ 15 mls/hr IV .[id number] PRN PRN Reason: Additional IVPB Infusion Ampicillin Sodium/Sulbactam (Sodium 3 gm/ Sodium Chloride) 112 mls @ 150 mls/hr IV Q8 [facility] Last Infusion: 10/10/20 06:29 Dose: Infused Documented by: Metronidazole (Flagyl) 500 mg in 100 mls @ 100 mls/hr IV Q8 [facility] Last Admin: 10/10/20 06:29 Dose: 100 mls/hr Documented by: Dextrose/Lactated Ringer's () 1,000 mls @ 60 mls/hr IV .[id number] [facility] Last Infusion: 10/10/20 05:30 Dose: 0 mls/hr Documented by: Ketorolac Tromethamine (Ketorolac 30 Mg/Ml Syringe) 30 mg IV Q8 [facility] Stop: 10/11/20 14:01 Last Admin: 10/10/20 06:30 Dose: 30 mg Documented by: Labetalol HCl (Labetalol (Prefilled) 20 Mg/4 Ml) 20 mg IV X1 PRN PRN Reason: BLOOD PRESSURE Labetalol HCl (Labetalol (Prefilled) 20 Mg/4 Ml) 10 - 20 mg IV Q10M PRN PRN PRN Reason: to Maintain BP Goals Magnesium Hydroxide (Magnesium Hydroxide 30 Ml Udc) 30 ml PO DAILY PRN PRN PRN Reason: Constipation Melatonin (Melatonin 3 Mg Tablet) 3 mg PO QHS PRN PRN PRN Reason: INSOMNIA Ondansetron HCl (Ondansetron 4 Mg/2 Ml Vial) 4 mg IV Q8H PRN PRN PRN Reason: NAUSEA/VOMITING Prochlorperazine Edisylate (Prochlorperazine 10 Mg/2 Ml Vial) 5 mg IV Q4H PRN PRN PRN Reason: Breakthrough Nausea/Vomiting Psyllium Hydrophilic Mucilloid (Psyllium 1 Packet) 1 packet PO DAILY PRN PRN PRN Reason: Constipation Senna/Docusate Sodium (Senna/Docusate Sodium 1 Tablet) 2 tablet PO BID PRN PRN PRN Reason: Constipation Sodium Chloride (0.9% Saline Lock 10 Ml Syringe) 10 - 40 ml IV UD PRN PRN Reason: SALINE FLUSH Last Admin: 10/10/20 06:31 Dose: 20 ml Documented by: Throat Lozenges (Benzocaine/Menthol 1 Lozenge) 1 lozenge MUCOUS MEM Q2H PRN PRN PRN Reason: SORE THROAT Medical Necessity - Tobacco Use Tobacco Use: Non-smoker Assessment/Plan All Active Problems (Last Reviewed 02/12/20 @ 10:[address] Hardeep Medrano MD) Right submandibular sialadenitis (Acute) Acute encephalopathy (Acute) Aphasia (Acute) This is an 80 years old male patient presented to the emergency room because of reported difficulty speaking, aphasia and confusion, was admitted as a case of possible stroke, had stroke work-up was unremarkable, had tenderness on the right side of his face and right neck for which CT scan done and showed right submandibular sialadenitis. #1 acute right submandibular sialoadenitis/deep right neck space infection: Remained on IV Unasyn and Flagyl. He has been afebrile, other vitals are stable, no leukocytosis. Although he has been able to speak more fluently but still having difficulty swallowing. He was seen by speech therapy today and not able to follow commands. He was evaluated by ENT, found to have deep space infection extending from the right submandibular sialoadenitis. Oral surgery evaluated the patient again yesterday and stated no indication for surgical drainage. Blood cultures showed no growth in 5 days. Plan to continue same treatment. #2 acute hypoxic respiratory failure: Today, oxygenation significant improved, he is down to room air, pulse ox is 96%. Pneumonia ruled out. #3 dysphagia/difficulty swallowing: This is likely due to the painful salivary gland, deep right neck space infection. Acute stroke ruled out. Speech therapy has been seeing the patient, kept on n.p.o. Patient is not following directions upon swallowing. May need PEG tube placement versus hospice and palliative care. #4 strokelike symptoms/aphasia: Acute stroke ruled out. MRI brain showed no acute findings. MRA of the neck was unremarkable. 2D echocardiogram reviewed. He has no focal deficit on physical exam. Because of secretions, he still having some trouble talking fluently but able to answer questions appropriately. #5 encephalopathy: It is likely due to infection in addition to baseline dementia. MRI and CT scan brain was unremarkable as above. #6 acute kidney injury: With questionable stage III chronic kidney disease. Patient received IV fluids and kidney function improved. Yesterday's creatinine is 0.96. #7 hypertension: Blood pressure stable, currently he is not on any antihypertensive medications. #8 paroxysmal atrial fibrillation: Heart rate stable. He is not on any medication for rate control, not on anticoagulation. #9 CODE STATUS: DNR CCA with intubation, discussed with the patient's 2 daughters and 2 sons. #10 DVT prophylaxis: Continue subcu Lovenox. This note was generated with [employer] dictation software. It may contain incorrect words, spelling, and punctuation that were not noted in checking the note before signing. Inpatient E&M: 63545 Subs Hosp L2
[2020-10-10] MEDS: Enoxaparin 40 MG/0.4 ML Syringe SC (09:06)
[2020-10-10] MEDS: Menthol/Lanolin/Calamine/Znox 113 GM Tube 1 APPLIC TOPICAL ×3 (09:07→20:54)
[2020-10-10 09:14] LABS: Absolute Neutrophil Count 4.5 X10^3/uL (2.0-7.7); Hematocrit 36.7 % (40-54); Hemoglobin 11.7 g/dL (13.0-16.5); Lymphocyte % 10.9 % (19-41); Mean Corp Hgb Conc 31.9 g/dL (32-36); Mean Corpuscular Hgb 29.9 pg (27.0-32.0); Mean Corpuscular Volume 93.9 fL (80-94); Mean Platelet Vol. 10.1 fl (6.2-12.0); Monocyte# 0.42 X10^3/uL; Monocyte% 7.6 % (0-10); NRBC Flagged by Analyzer 0 % (0-5); Neutrophil # 4.45 X10^3/uL (2.7-7.7); Neutrophil % 80.8 % (47-70); POSITIVE DIFFERENTIAL YES; Platelet Count 262 K/mm3 (150-450); RBC Distribution Width CV 14.1 % (11.6-14.6); RBC Distribution Width SD 48.8 fl (35.1-43.9); Red Blood Count 3.91 M/mm3 (4.6-6.2); White Blood Count 5.5 K/mm3 (4.4-11.0)
[2020-10-10 09:24] LABS: Differential Indicated SCAN CRITERIA MET
[2020-10-10 09:35] LABS: Anion Gap 7 (5-15); BUN 32 mg/dL (7-18); BUN/Creat Ratio 33.3 RATIO (10-20); Calcium,Total 8.2 mg/dL (8.5-10.1); Chloride 119 mmol/L (98-107); Creatinine, Serum 0.96 mg/dL (0.70-1.30); EST Glomerular Filtration Rate 80 mL/min (>60); Est Glom Filt Rate - Afr Amer 97 mL/min (>60); Estimated Creatinine Clearance 60.35 ml/min; Glucose 151 mg/dL (74-106); Potassium 3.9 mmol/L (3.5-5.1); Sodium Level 150 mmol/L (136-145)
[2020-10-10] MEDS: Bisacodyl 10 MG Suppository RECTAL (21:01)
[2020-10-11] VITALS (7 sets, daily range): BP systolic 99–160; BP diastolic 75–91; PULSE 51–78; RESP 17–20; TEMP 36.3–36.7; O2SAT 94–97
[2020-10-11] MEDS: 0.9% Saline Lock 10 ML Syringe IV (05:06)
[2020-10-11] MEDS: Ketorolac 30 MG/ML Syringe IV ×2 (05:10→13:03)
[2020-10-11] MEDS: metroNIDAZOLE 500 MG/100 ML BAG 100 MG IV ×3 (05:55→22:01)
--- NOTE | 2020-10-11 07:59 | PCM.PROGNOTE ---
Patient Problems: Active and Suspected Problems (Last Reviewed 02/12/20 @ 10:[address] Hardeep Medrano MD) Acute encephalopathy (Acute) Aphasia (Acute) Subjective: Chief complaint: Follow-up after admission for right submandibular sialoadenitis/deep neck space infection, aphasia, and acute kidney injury. Patient seen and examined. No acute events overnight. Today, patient denied any complaints. He is still having difficulties understanding and being directed. He is afebrile, heart rate stable, blood pressure slight elevated, pulse ox is 95% on room air. - Physical Exam Vitals/I&O's: Vital Signs Temp Pulse Resp BP Pulse Ox 98.0 F 62 17 160/84 H 95 10/11/20 03:10 10/11/20 07:00 10/11/20 03:10 10/11/20 03:10 10/11/20 03:10 Oxygen Flow Rate (L/min) 3 Oxygen Delivery Method Room Air Weight: 204 lb 5.896 oz Body Mass Index (BMI) 30.2 Finger Stick Blood Glucose 173 Intake and Output for Last 24 Hours 10/09/20 10/10/20 10/11/20 23:59 23:59 23:59 Intake Total 1825 / 1825 1147 / 1147 1212 / 1212 Output Total 0 / 0 Balance 1825 / 1825 1147 / 1147 1212 / 1212 General: Alert, Cooperative, No apparent distress, Confused HEENT: Atraumatic, PERRLA, EOMI, Normocephalic Oral: Moist Mucosa, No Gingival or Mucosal Lesions/ Ulcerations Neck: Supple, No JVD, Negative Carotid Bruits, Trachea Midline, Thyroid Normal Size and Texture Lungs: Clear to auscultation, Normal air movement, No rhonchi, No wheeze, No rales, Diminished Cardiovascular: Regular rate, Regular Rhythm, Normal S1, Normal S2, PMI Normal Abdomen: Bowel Sounds Present, Soft, Non Tender, Non-Distended, No Hepato-splenomegaly Extremities: No clubbing, No cyanosis, No edema Skin: No rashes, No breakdown Lymphatic: No Cervical, Supraclavicular, or Inguinal Adenopathy Neurological: Cranial nerves II-XII grossly intact, Motor Exam 5/5 strength throughout Psych/Mental Status: Normal Affect, Appropriate Microbiology Past 72 Hours 10/05/20 00:56 Blood Culture (Wb) - Anticubital Right Blood Culture - Final No growth in 5 days. 10/05/20 00:40 Blood Culture (Wb) - Left Hand Blood Culture - Final No growth in 5 days. Laboratory Results 10/10/20 08:23: WBC 5.5, RBC 3.91 L, Hgb 11.7 L, Hct 36.7 L, MCV 93.9, MCH 29.9, MCHC 31.9 L, RDW Std Deviation 48.8 H, RDW Coeff of Faustino 14.1, Plt Count 262, MPV 10.1, Immature Gran % (Auto) 0.700, Neut % (Auto) 80.8 H, Lymph % (Auto) 10.9 L, Sevier % (Auto) 7.6, Eos % (Auto) 0.0, Baso % (Auto) 0.0, Absolute Neuts (auto) 4.5, Absolute Lymphs (auto) 0.60 L, Nucleated RBC % 0 10/10/20 08:23: Sodium 150 H, Potassium 3.9, Chloride 119 H, Carbon Dioxide 24.0, Anion Gap 7, BUN 32 H, Creatinine 0.96, Estim Creat Clear Calc 60.35, Est GFR (MDRD) Af Amer 97, Est GFR (MDRD) Non-Af 80, BUN/Creatinine Ratio 33.3 H, Glucose 151 H, Calcium 8.2 L Current Medications Acetaminophen (Acetaminophen 325 Mg Tablet) 650 mg PO Q6H PRN PRN PRN Reason: Pain Score 1-10/Temp > 100.7 F Acetaminophen (Acetaminophen 325 Mg Suppository) 650 mg RECTAL Q4H PRN PRN PRN Reason: Pain Score 1-10/Temp > 100.7 F Al Hydroxide/Mg Hydroxide (Mag Hydrox/Al Hydrox/Simeth 30 Ml Udc) 30 ml PO Q6H PRN PRN PRN Reason: Gastric Burning Albuterol Sulfate (Albuterol Ih 8.5 Gm (Proair) Inhaler (200 Puffs)) 4 - 8 puff INHALATION Q4H PRN PRN PRN Reason: Dyspnea, wheezing Bisacodyl (Bisacodyl 10 Mg Suppository) 10 mg RECTAL DAILY PRN PRN Reason: Constipation Last Admin: 10/10/20 21:01 Dose: 10 mg Documented by: Calamine/Phenol (Menthol/Lanolin/Calamine/Znox 113 Gm Tube) 1 applic TOPICAL 4X/DAY [facility]; Protocol Last Admin: 10/10/20 20:54 Dose: 1 applic Documented by: Enoxaparin Sodium (Enoxaparin 40 Mg/0.4 Ml Syringe) 40 mg SC DAILY [facility] Last Admin: 10/10/20 09:06 Dose: 40 mg Documented by: Famotidine (Famotidine 20 Mg Tablet) 20 mg PO BID [facility] Last Admin: 10/10/20 20:54 Dose: Not Given Documented by: Guaifenesin (Guaifenesin 10 Ml Udc (200mg/10ml)) 20 ml PO Q4H PRN PRN PRN Reason: COUGH Hydralazine HCl (Hydralazine 20 Mg/Ml Vial) 10 mg IV Q8H PRN PRN PRN Reason: for SBP>160 Sodium Chloride () 250 mls @ 15 mls/hr IV .[id number] PRN PRN Reason: Saline Flush Last Infusion: 10/10/20 23:00 Dose: 15 mls/hr Documented by: Sodium Chloride () 250 mls @ 15 mls/hr IV .[id number] PRN PRN Reason: Additional IVPB Infusion Ampicillin Sodium/Sulbactam (Sodium 3 gm/ Sodium Chloride) 112 mls @ 150 mls/hr IV Q8 [facility] Last Infusion: 10/11/20 05:56 Dose: Infused Documented by: Metronidazole (Flagyl) 500 mg in 100 mls @ 100 mls/hr IV Q8 [facility] Last Infusion: 10/11/20 07:16 Dose: Infused Documented by: Dextrose () 1,000 mls @ 60 mls/hr IV .[id number] [facility] Last Admin: 10/11/20 05:55 Dose: 60 mls/hr Documented by: Ketorolac Tromethamine (Ketorolac 30 Mg/Ml Syringe) 30 mg IV Q8 [facility] Stop: 10/11/20 14:01 Last Admin: 10/11/20 05:10 Dose: 30 mg Documented by: Labetalol HCl (Labetalol (Prefilled) 20 Mg/4 Ml) 20 mg IV X1 PRN PRN Reason: BLOOD PRESSURE Labetalol HCl (Labetalol (Prefilled) 20 Mg/4 Ml) 10 - 20 mg IV Q10M PRN PRN PRN Reason: to Maintain BP Goals Magnesium Hydroxide (Magnesium Hydroxide 30 Ml Udc) 30 ml PO DAILY PRN PRN PRN Reason: Constipation Melatonin (Melatonin 3 Mg Tablet) 3 mg PO QHS PRN PRN PRN Reason: INSOMNIA Ondansetron HCl (Ondansetron 4 Mg/2 Ml Vial) 4 mg IV Q8H PRN PRN PRN Reason: NAUSEA/VOMITING Prochlorperazine Edisylate (Prochlorperazine 10 Mg/2 Ml Vial) 5 mg IV Q4H PRN PRN PRN Reason: Breakthrough Nausea/Vomiting Psyllium Hydrophilic Mucilloid (Psyllium 1 Packet) 1 packet PO DAILY PRN PRN PRN Reason: Constipation Senna/Docusate Sodium (Senna/Docusate Sodium 1 Tablet) 2 tablet PO BID PRN PRN PRN Reason: Constipation Sodium Chloride (0.9% Saline Lock 10 Ml Syringe) 10 - 40 ml IV UD PRN PRN Reason: SALINE FLUSH Last Admin: 10/11/20 05:06 Dose: 10 ml Documented by: Throat Lozenges (Benzocaine/Menthol 1 Lozenge) 1 lozenge MUCOUS MEM Q2H PRN PRN PRN Reason: SORE THROAT Medical Necessity - Tobacco Use Tobacco Use: Non-smoker Assessment/Plan All Active Problems (Last Reviewed 02/12/20 @ 10:[address] Hardeep Medrano MD) Right submandibular sialadenitis (Acute) Acute encephalopathy (Acute) Aphasia (Acute) This is an 80 years old male patient presented to the emergency room because of reported difficulty speaking, aphasia and confusion, was admitted as a case of possible stroke, had stroke work-up was unremarkable, had tenderness on the right side of his face and right neck for which CT scan done and showed right submandibular sialadenitis. #1 acute right submandibular sialoadenitis/deep right neck space infection: Remained on IV Unasyn and Flagyl. He has been afebrile, other vitals are stable, no leukocytosis. He has been improving very slowly, speech is more fluent but still having difficulty swallowing. Reevaluated by ENT and oral surgery, recommendations reviewed. Blood cultures showed no growth in 5 days. Plan to continue same treatment. I will discuss with the family today about feeding and plan of care. #2 acute hypoxic respiratory failure: Today, oxygenation significant improved, he is down to room air, pulse ox is 95%. Pneumonia ruled out. #3 dysphagia/difficulty swallowing: This is likely due to the painful salivary gland, deep right neck space infection. Acute stroke ruled out. Speech therapy has been seeing the patient, kept on n.p.o. Patient is not following directions upon swallowing. Plan as above. Will have speech therapy evaluate the patient again today. #4 strokelike symptoms/aphasia: Acute stroke ruled out. MRI brain showed no acute findings. MRA of the neck was unremarkable. 2D echocardiogram reviewed. He has no focal deficit on physical exam. Because of secretions, he still having some trouble talking fluently but able to answer questions appropriately. #5 encephalopathy: It is likely due to infection in addition to baseline dementia. MRI and CT scan brain was unremarkable as above. Patient having difficulties following commands and instructions. He remained confused. #6 acute kidney injury: With questionable stage III chronic kidney disease. Patient received IV fluids and kidney function improved. Yesterday's creatinine is 0.96. #7 hypertension: Blood pressure slightly elevated, currently he is not on any antihypertensive medications. We will start IV hydralazine as needed. #8 paroxysmal atrial fibrillation: Heart rate stable. He is not on any medication for rate control, not on anticoagulation. #9 CODE STATUS: DNR CCA with intubation, discussed with the patient's 2 daughters and 2 sons. #10 DVT prophylaxis: Continue subcu Lovenox. This note was generated with [employer] dictation software. It may contain incorrect words, spelling, and punctuation that were not noted in checking the note before signing. Inpatient E&M: 98123 Subs Hosp L2
[2020-10-11] MEDS: Enoxaparin 40 MG/0.4 ML Syringe SC (08:15)
[2020-10-11] MEDS: Menthol/Lanolin/Calamine/Znox 113 GM Tube 1 APPLIC TOPICAL ×3 (08:15→20:55)
[2020-10-12 03:10] VITALS: BP 147/91; PULSE 55; RESP 18; TEMP 36.4; O2SAT 97
[2020-10-12] MEDS: metroNIDAZOLE 500 MG/100 ML BAG 100 MG IV ×2 (05:50→13:32)
[2020-10-12 07:10] LABS: Anion Gap 5 (5-15); BUN 32 mg/dL (7-18); BUN/Creat Ratio 41.2 RATIO (10-20); Calcium,Total 7.7 mg/dL (8.5-10.1); Chloride 115 mmol/L (98-107); Creatinine, Serum 0.78 mg/dL (0.70-1.30); EST Glomerular Filtration Rate 102 mL/min (>60); Est Glom Filt Rate - Afr Amer 123 mL/min (>60); Estimated Creatinine Clearance 57.93 ml/min; Glucose 114 mg/dL (74-106); Potassium 3.5 mmol/L (3.5-5.1); Sodium Level 145 mmol/L (136-145)
[2020-10-12 09:34] VITALS: BP 133/94; PULSE 60; RESP 18; TEMP 36.6; O2SAT 96
[2020-10-12] MEDS: Menthol/Lanolin/Calamine/Znox 113 GM Tube 1 APPLIC TOPICAL ×4 (09:36→21:10)
[2020-10-12] MEDS: Enoxaparin 40 MG/0.4 ML Syringe SC (09:37)
--- NOTE | 2020-10-12 15:22 | PCM.PN.HOSP ---
Patient Problems: Active and Suspected Problems (Last Reviewed 02/12/20 @ 10:[address] Hardeep Medrano MD) Acute encephalopathy (Acute) Aphasia (Acute) Subjective: Patient remains very confused. Is alert to self and able to tell me his birthdate but otherwise is unable to give me much information. Per discussion with his daughter he was eating just fine prior to admission. It has been 7 days since p.o. intake was able to be taken. Patient asking for water immediate recall of information given his very poor. Vitals/I&O's: Vital Signs Temp Pulse Resp BP Pulse Ox 97.9 F 60 18 133/94 H 96 10/12/20 09:34 10/12/20 09:34 10/12/20 09:34 10/12/20 09:34 10/12/20 09:34 Oxygen Flow Rate (L/min) 3 Oxygen Delivery Method Room Air Weight: 92.7 kg Body Mass Index (BMI) 30.2 Finger Stick Blood Glucose 173 Intake and Output for Last 24 Hours 10/10/20 10/11/20 10/12/20 23:59 23:59 23:59 Intake Total 1147 / 1147 2867.25 / 2867.25 1312 / 1312 Output Total 0 / 0 250 / 250 Balance 1147 / 1147 2867.25 / 2867.25 1062 / 1062 General: Alert, Cooperative, No apparent distress, Well developed, Well nourished, - - Elderly white male sitting up in bed, nontoxic, no acute distress HEENT: Atraumatic, PERRLA, EOMI, Normocephalic, EAC Clear Oral: Moist Mucosa, Dry Mucosa, - - Poor dentition Neck: Supple, Trachea Midline, Thyroid Normal Size and Texture, - - Mild tenderness in the right submandibular region, no crepitus Lungs: Clear to auscultation, No rhonchi, No wheeze, No rales, Diminished - Diffusely Cardiovascular: Regular rate, Regular Rhythm, Normal S1, Normal S2, No murmurs, No Ectopic Activity, No rub noted, No Gallop Abdomen: Bowel Sounds Present, Soft, Non Tender, Non-Distended, No hernias noted Extremities: No clubbing, No cyanosis - Acutely this occurred 28 points in the first quarter, No edema, Capillary Refill Less than 3 Seconds, Peripheral Pulses Normal - [place] my son is going nuts Skin: No rashes, No breakdown, - - Scattered actinic keratoses on face and arms Musculoskeletal: No Tenderness to Palpation of Joints or Extremities, No Muscle Wasting, Arthritic Changes Lymphatic: No Cervical, Supraclavicular, or Inguinal Adenopathy Neurological: Cranial nerves II-XII grossly intact, Deep Tendon Reflexes 2+/4 and Symmetrical, - - Generalized weakness Psych/Mental Status: - - Very pleasant but confused Microbiology Past 72 Hours 10/05/20 00:56 Blood Culture (Wb) - Anticubital Right Blood Culture - Final No growth in 5 days. 10/05/20 00:40 Blood Culture (Wb) - Left Hand Blood Culture - Final No growth in 5 days. Laboratory Results 10/12/20 06:21: Sodium 145, Potassium 3.5, Chloride 115 H, Carbon Dioxide 25.0, Anion Gap 5, BUN 32 H, Creatinine 0.78, Estim Creat Clear Calc 57.93, Est GFR (MDRD) Af Amer 123, Est GFR (MDRD) Non-Af 102, BUN/Creatinine Ratio 41.2 H, Glucose 114 H, Calcium 7.7 L Current Medications Acetaminophen (Acetaminophen 325 Mg Tablet) 650 mg PO Q6H PRN PRN PRN Reason: Pain Score 1-10/Temp > 100.7 F Acetaminophen (Acetaminophen 325 Mg Suppository) 650 mg RECTAL Q4H PRN PRN PRN Reason: Pain Score 1-10/Temp > 100.7 F Al Hydroxide/Mg Hydroxide (Mag Hydrox/Al Hydrox/Simeth 30 Ml Udc) 30 ml PO Q6H PRN PRN PRN Reason: Gastric Burning Albuterol Sulfate (Albuterol Ih 8.5 Gm (Proair) Inhaler (200 Puffs)) 4 - 8 puff INHALATION Q4H PRN PRN PRN Reason: Dyspnea, wheezing Bisacodyl (Bisacodyl 10 Mg Suppository) 10 mg RECTAL DAILY PRN PRN Reason: Constipation Last Admin: 10/10/20 21:01 Dose: 10 mg Documented by: Calamine/Phenol (Menthol/Lanolin/Calamine/Znox 113 Gm Tube) 1 applic TOPICAL 4X/DAY ROSALBA; Protocol Last Admin: 10/12/20 13:33 Dose: 1 applic Documented by: Enoxaparin Sodium (Enoxaparin 40 Mg/0.4 Ml Syringe) 40 mg SC DAILY [facility] Last Admin: 10/12/20 09:37 Dose: 40 mg Documented by: Famotidine (Famotidine 20 Mg Tablet) 20 mg PO BID [facility] Last Admin: 10/12/20 08:37 Dose: Not Given Documented by: Guaifenesin (Guaifenesin 10 Ml Udc (200mg/10ml)) 20 ml PO Q4H PRN PRN PRN Reason: COUGH Hydralazine HCl (Hydralazine 20 Mg/Ml Vial) 10 mg IV Q8H PRN PRN PRN Reason: for SBP>160 Sodium Chloride () 250 mls @ 15 mls/hr IV .[id number] PRN PRN Reason: Saline Flush Last Infusion: 10/11/20 20:00 Dose: 15 mls/hr Documented by: Sodium Chloride () 250 mls @ 15 mls/hr IV .[id number] PRN PRN Reason: Additional IVPB Infusion Ampicillin Sodium/Sulbactam (Sodium 3 gm/ Sodium Chloride) 112 mls @ 150 mls/hr IV Q8 [facility] Last Admin: 10/12/20 14:45 Dose: 150 mls/hr Documented by: Metronidazole (Flagyl) 500 mg in 100 mls @ 100 mls/hr IV Q8 [facility] Last Infusion: 10/12/20 14:47 Dose: Infused Documented by: Dextrose () 1,000 mls @ 60 mls/hr IV .[id number] [facility] Last Admin: 10/12/20 14:45 Dose: 60 mls/hr Documented by: Labetalol HCl (Labetalol (Prefilled) 20 Mg/4 Ml) 20 mg IV X1 PRN PRN Reason: BLOOD PRESSURE Labetalol HCl (Labetalol (Prefilled) 20 Mg/4 Ml) 10 - 20 mg IV Q10M PRN PRN PRN Reason: to Maintain BP Goals Magnesium Hydroxide (Magnesium Hydroxide 30 Ml Udc) 30 ml PO DAILY PRN PRN PRN Reason: Constipation Melatonin (Melatonin 3 Mg Tablet) 3 mg PO QHS PRN PRN PRN Reason: INSOMNIA Ondansetron HCl (Ondansetron 4 Mg/2 Ml Vial) 4 mg IV Q8H PRN PRN PRN Reason: NAUSEA/VOMITING Prochlorperazine Edisylate (Prochlorperazine 10 Mg/2 Ml Vial) 5 mg IV Q4H PRN PRN PRN Reason: Breakthrough Nausea/Vomiting Psyllium Hydrophilic Mucilloid (Psyllium 1 Packet) 1 packet PO DAILY PRN PRN PRN Reason: Constipation Senna/Docusate Sodium (Senna/Docusate Sodium 1 Tablet) 2 tablet PO BID PRN PRN PRN Reason: Constipation Sodium Chloride (0.9% Saline Lock 10 Ml Syringe) 10 - 40 ml IV UD PRN PRN Reason: SALINE FLUSH Last Admin: 10/11/20 05:06 Dose: 10 ml Documented by: Throat Lozenges (Benzocaine/Menthol 1 Lozenge) 1 lozenge MUCOUS MEM Q2H PRN PRN PRN Reason: SORE THROAT Medical Necessity - Tobacco Use Tobacco Use: Non-smoker Assessment/Plan All Active Problems (Last Reviewed 02/12/20 @ 10:[address] Hardeep Medrano MD) Right submandibular sialadenitis (Acute) Acute encephalopathy (Acute) Aphasia (Acute) Acute right submandibular sialoadenitis/deep neck infection -Currently is on Unasyn and Flagyl -This is double up anaerobic coverage we will discontinue Flagyl and continue Unasyn for now -Was seen by ENT and flexible laryngoscopy showed no severe abnormalities -CT scan of his neck on 10/05/2020 was positive for subcu air and extensive stranding on the right submandibular space but no abscess was noted at that time -Repeat CT of his neck Dysphagia -Per discussion with family patient was eating fine prior to admission -Suspect that this current dysphagia may be more related to his deep neck infection been progression of his dementia -Speech-language pathology is following and continues to recommend n.p.o. -We will order instrumental eval for swallow to clarify level of dysphagia -If unable to take p.o. diet soon patient may need NG tube placement or PEG -Extensive discussion with daughter today regarding this information and MEDICAL ONCOLOGY PHYSICIAN was going to call family as well -We will continue IV fluids at this time Chronic anemia -Hemoglobin stable Acute hypoxic respiratory failure -Resolved -Patient remains on room air -Question aspiration with infection--> complete Unasyn Metabolic encephalopathy -Resolved -Per discussion with daughter it sounds like patient is at baseline mental status with dementia GUI -Resolved Hypertension -Mild elevations -Continue as needed hydralazine for now PAF -No A. fib currently -Patient not orally anticoagulated -Continue telemetry DVT/GI prophylaxis -Subcu Lovenox -Famotidine CODE STATUS -DNR CCA okay for intubation
[2020-10-12 15:30] VITALS: BP 125/83; PULSE 78; RESP 18; TEMP 36.6; O2SAT 98
--- NOTE | 2020-10-12 15:34 | CT_ITS ---
STUDY: CT SOFT TISSUE NECK WITH CONTRAST REASON FOR EXAM: Male, 80 years old. R NECK ABSCESS RADIATION DOSAGE (If Supplied By Facility): CTDIvol = ( 18.44 ) mGy, DLP = ( 589.72 ) mGycm TECHNIQUE: The patient was scanned in a multi-detector CT scanner. High resolution transaxial imaging was performed following intravenous administration of IV-75 ML ISOVUE 370. Sagittal and coronal images were reconstructed. Individualized dose optimization techniques were used for this CT. COMPARISON: 10/05/2020. FINDINGS: Normal bilateral parotid glands. Normal bilateral property specialist spaces. Normal bilateral parapharyngeal spaces. There is a 3.6 x 3 x 4.6 cm gas-containing collection involving the right submandibular gland and right floor of the mouth. Edema extends into the right carotid space. There is mild edema of the right palatine tonsil. Findings appear mildly increased compared to the prior study. Normal visualized nasopharynx. Normal retropharyngeal space. Normal perivertebral space. The visualized cervical lymph nodes (levels I-) are within normal size limits, and maintain normal morphology. Normal epiglottis, bilateral vallecula and hypopharynx. The pre-epiglottic and paraglottic adipose spaces are normal. Normal visualized bilateral piriform sinuses, aryepiglottic folds, vocal cords, and arytenoid-cricoid articulations. Normal subglottic trachea. Normal bilateral lobes of the thyroid gland. Normal visualized pulmonary apices. Normal visualized paranasal sinuses. Normal visualized cervical spine. CT/Soft Tissue Neck without Contr IMPRESSION: 1. Right submandibular abscess extending to the floor of the mouth consistent with Terry''s angina. Findings are mildly increased compared to 10/05/2020. N.B. : The above information has been verbally conveyed by Dilma Mcginnis MD to Lexy Henning DO on 10/12/2020 17:07:50 (ET). Electronically Signed: Dilma Mcginnis MD at 17:58 EST Tel , Service support ,
--- NOTE | 2020-10-12 17:19 | PCM.HOSP.N ---
Hospitalist Note Call called by radiology regarding wet read for the repeat CT of the soft tissue neck. Per discussion with the radiologist the right submandibular fluid collection which she is calling an abscess, is larger in size and more organized. I called Dr. Musa Wright to update him with this and he reported he would see the patient in the morning. Will repeat CBC in a.m. I am concerned that this may need drained and continued antibiotics. This may explain why dysphagia has continued to be a problem. I will broaden antibiotics right now to Vanco and Zosyn. MRSA PCR is pending. Patient currently has stable airway.
[2020-10-12 20:12] LABS: M R Staph aureus DNA By PCR Negative (Negative); Probe Check PASS; Specimen Processing Control PASS
--- NOTE | 2020-10-12 20:20 | PCM.RX.CS ---
Consult Pharmacy has been consulted to manage selected antiobiotic: Vancomycin Type of Consult: New start Suspected Infection: Pneumonia Labs: Sodium 145 mmol/L (136-145) 10/12/20 06:21 Potassium 3.5 mmol/L (3.5-5.1) 10/12/20 06:21 Chloride 115 mmol/L (98-107) H 10/12/20 06:21 Carbon Dioxide 25.0 mmol/L (21.0-32.0) 10/12/20 06:21 Anion Gap 5 (5-15) 10/12/20 06:21 BUN 32 mg/dL (7-18) H 10/12/20 06:21 Creatinine 0.78 mg/dL (0.70-1.30) 10/12/20 06:21 Est GFR (MDRD) Af Amer 123 mL/min (>60) 10/12/20 06:21 Est GFR (MDRD) Non-Af 102 mL/min (>60) 10/12/20 06:21 BUN/Creatinine Ratio 41.2 RATIO (10-20) H 10/12/20 06:21 Glucose 114 mg/dL (74-106) H 10/12/20 06:21 Microbiology: Microbiology 10/05/20 00:56 Blood Culture (Wb) - Anticubital Right Blood Culture - Final No growth in 5 days. 10/05/20 00:40 Blood Culture (Wb) - Left Hand Blood Culture - Final No growth in 5 days. 10/05/20 01:36 Mucosa - Nasopharyngeal Respiratory Panel (PCR) - Final 10/05/20 00:25 Urine Catheter - Catheter Legionella Antigen - Final 10/05/20 00:25 Urine Catheter - Catheter Streptococcus pneumoniae Antigen (M - Final 10/05/20 00:34 Mucosa - Nose SARS-CoV-2 Antigen (Rapid) - Final Weight used for dosin.7 kg Goal Trough: 15-20 mcg/mL Pharmacy Plan for Drug Dosing: NEW START IV VANCOMYCIN Consulting Physician: alma lomas Indication: pneumonia Goal Trough: 15-20 SrCr: 0.8 (rounded up due to pt's age) CrCl: 82.81 (using an adjusted body weight of 79.5kg) Comments: Vancomcyin Dose: recommend 1500mg iv q12h Pending Level: 10/14/20 at 0630 Pharmacy Service will continue to monitor and adjust dosing as required. Follow-Up Labs: Trough Vancomycin - 10/14/20 @ 0661
[2020-10-12 21:10] VITALS: BP 137/83; PULSE 71; RESP 19; TEMP 36.9; O2SAT 95
[2020-10-13] VITALS (12 sets, daily range): BP systolic 103–135; BP diastolic 70–85; PULSE 55–86; RESP 16–22; TEMP 36.3–36.8; O2SAT 94–97; BMI 30.2
[2020-10-13 05:45] LABS: Absolute Lymphocyte Count 1.31 X10^3/uL (0.83-4.51); Absolute Neutrophil Count 6.4 X10^3/uL (2.0-7.7); Basophil# 0.02 X10^3/uL; Basophil% 0.2 % (0-1); Eosinophils% 2.3 % (0-5); Hematocrit 35.6 % (40-54); Hemoglobin 11.9 g/dL (13.0-16.5); Lymphocyte # 1.31 X10^3/ul (4.0); Lymphocyte % 15.2 % (19-41); Mean Corp Hgb Conc 33.4 g/dL (32-36); Mean Corpuscular Hgb 30.7 pg (27.0-32.0); Mean Platelet Vol. 10.2 fl (6.2-12.0); Monocyte# 0.64 X10^3/uL; Monocyte% 7.4 % (0-10); NRBC Flagged by Analyzer 0 % (0-5); Neutrophil # 6.36 X10^3/uL (2.7-7.7); Neutrophil % 74.1 % (47-70); Platelet Count 294 K/mm3 (150-450); RBC Distribution Width CV 13.9 % (11.6-14.6); RBC Distribution Width SD 47.1 fl (35.1-43.9); Red Blood Count 3.87 M/mm3 (4.6-6.2); White Blood Count 8.6 K/mm3 (4.4-11.0)
[2020-10-13 05:55] LABS: International Normalized Ratio 1.4
[2020-10-13 05:56] LABS: Partial Thromboplast Time 27.9 Seconds (24.1-36.2)
[2020-10-13 06:18] LABS: Anion Gap 7 (5-15); BUN 17 mg/dL (7-18); BUN/Creat Ratio 25.6 RATIO (10-20); Calcium,Total 7.6 mg/dL (8.5-10.1); Chloride 109 mmol/L (98-107); Creatinine, Serum 0.66 mg/dL (0.70-1.30); EST Glomerular Filtration Rate 122 mL/min (>60); Est Glom Filt Rate - Afr Amer 148 mL/min (>60); Estimated Creatinine Clearance 57.93 ml/min; Glucose 112 mg/dL (74-106); Potassium 3.4 mmol/L (3.5-5.1); Sodium Level 138 mmol/L (136-145)
[2020-10-13] MEDS: Menthol/Lanolin/Calamine/Znox 113 GM Tube 1 APPLIC TOPICAL ×4 (09:17→21:16)
[2020-10-13] MEDS: Enoxaparin 40 MG/0.4 ML Syringe SC (09:17)
--- NOTE | 2020-10-13 10:16 | NURSING ---
PT going to OR today if family agreeable. PT to remain NPO and no swallow test to be completed at this time. This nurse called Radiology and updated on schedule delay.
--- NOTE | 2020-10-13 10:39 | CON.PCM_ITS ---
Problem List (1) Ludwigs angina Status: Acute Reason for Consult: abscess Consulted by: Dr. Henning History of Present Illness: The patient is a 80 year old M with h/o dementia, presented 1/ with altered mental status, difficulty talking. Found to have submandibular abscess. On vanc/zosyn, ENT following, repeat CT showed worsening. Pt denies fever, no neck pain. Full ROS performed and neg except as noted above. - Medical History Past Medical History (Chronic Problems): Chronic Problems (Last Reviewed 02/12/20 @ 10:[address] Hardeep Medrano MD) Dementia (Chronic) CKD (chronic kidney disease), stage III (Chronic) Normocytic anemia (Chronic) Paroxysmal atrial fibrillation (Chronic) Essential (primary) hypertension (Chronic) Allergies/Adverse Reactions: Allergies No Known Allergies Allergy (Verified 02/12/20 09:46) Home Medications: Ambulatory Orders Medication Instructions Recorded rivaroxaban 20 mg tablet 20 mg PO DAILY #30 tab 03/04/20 - Social History Tobacco Use: non-smoker Vital Signs Temp Pulse Resp BP Pulse Ox 97.9 F 74 16 130/70 H 95 10/13/20 14:15 10/13/20 14:15 10/13/20 14:15 10/13/20 14:15 10/13/20 14:15 Oxygen Flow Rate (L/min) 3 Oxygen Delivery Method Room Air Weight: 92.7 kg Body Mass Index (BMI) 30.2 Finger Stick Blood Glucose 173 Microbiology Past 72 Hours 10/13/20 Unknown Gram Stain - Final Wound - Neck Laboratory Tests Past 24 Hrs 10/12/20 10/13/20 10/13/20 18:00 05:33 05:33 WBC 8.6 RBC 3.87 L Hgb 11.9 L Hct 35.6 L MCV 92.0 MCH 30.7 MCHC 33.4 RDW Std Deviation 47.1 H RDW Coeff of Faustino 13.9 Plt Count 294 MPV 10.2 Immature Gran % (Auto) 0.800 Neut % (Auto) 74.1 H Lymph % (Auto) 15.2 L Armstrong % (Auto) 7.4 Eos % (Auto) 2.3 Baso % (Auto) 0.2 Absolute Neuts (auto) 6.4 Absolute Lymphs (auto) 1.31 Nucleated RBC % 0 PT 17.0 H INR 1.4 APTT 27.9 Sodium Potassium Chloride Carbon Dioxide Anion Gap BUN Creatinine Estim Creat Clear Calc Est GFR (MDRD) Af Amer Est GFR (MDRD) Non-Af BUN/Creatinine Ratio Glucose Calcium MRSA (PCR) Negative 10/13/20 05:33 WBC RBC Hgb Hct MCV MCH MCHC RDW Std Deviation RDW Coeff of Faustino Plt Count MPV Immature Gran % (Auto) Neut % (Auto) Lymph % (Auto) Armstrong % (Auto) Eos % (Auto) Baso % (Auto) Absolute Neuts (auto) Absolute Lymphs (auto) Nucleated RBC % PT INR APTT Sodium 138 Potassium 3.4 L Chloride 109 H Carbon Dioxide 22.0 Anion Gap 7 BUN 17 Creatinine 0.66 L Estim Creat Clear Calc 57.93 Est GFR (MDRD) Af Amer 148 Est GFR (MDRD) Non-Af 122 BUN/Creatinine Ratio 25.6 H Glucose 112 H Calcium 7.6 L MRSA (PCR) - Other Studies Radiology: [] reviewed Other Studies: [] Route of nutrition/ use of supplements: [] Nutritional Intake: [] IV Site: [] Cheung Catheter: [] - Physical Exam General: Cooperative, No apparent distress HEENT: Atraumatic, PERRLA, EOMI Neck: Supple, - - R neck swelling Lungs: Clear to auscultation, Normal air movement Cardiovascular: Irregular Rate Abdomen: Soft, Non Tender, Non-Distended Extremities: No edema Skin: No rashes IV Site: Peripheral, without redness Musculoskeletal: No Tenderness to Palpation of Joints or Extremities Neurological: Cranial nerves II-XII grossly intact, - - oriented x1 - Assessment/Plan Antibiotics: [] Assessment/Plan: [] Active and Suspected Problems (Last Reviewed 02/12/20 @ 10:[address] 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 Recommend surgical I&D, will need transfer if cannot be done here. Cont vanc/zosyn. Will follow, thank you, d/w skilled nursing case manager.
--- NOTE | 2020-10-13 11:20 | NURSING ---
pt off unit to AC
--- NOTE | 2020-10-13 11:47 | PCM.PN.BLA ---
Progress Note The patient remains confused. He has not been fed (NG or PEG). Repeat CT scan last night revealed abscess in the right submandibular area. He is still is not swallowing. avss PE: awake. neck less swollen and less indurated but still with a 4 cm indurated area. No skin erythema CTscan- air fluid level in an abscess of the right submandibular space. A: right deep neck space infection now with abscess dysphagia P: I have recommended incision and drainage in the operating room. I will be looking at his hypopharynx and larynx at the same time. I have discussed this with his daughter who has agreed to the procedure and wishes to proceed. I have asked her to meet with her family to discuss the feeding issue which needs addressed promptly. STROKE Vital Signs/Narrative: Vital Signs Temp Pulse Resp BP Pulse Ox 10/13/20 11:04 73 18 126/73 H 97 10/13/20 09:10 97.9 F 62 18 133/80 H 97
[2020-10-13] MEDS: Lidocaine 1%/Epi 1:200 (30ml) 30 ML AMPUL (12:11)
--- NOTE | 2020-10-13 12:12 | PN_ITS ---
Patient Problems: Active and Suspected Problems (Last Reviewed 02/12/20 @ 10:[address] Hardeep Medrano MD) Acute encephalopathy (Acute) Aphasia (Acute) Subjective: Patient is sitting up in bed. Has no complaints but on exam right side of the neck is quite painful with palpation. Vitals/I&O's: Vital Signs Temp Pulse Resp BP Pulse Ox 97.9 F 73 18 126/73 H 97 10/13/20 09:10 10/13/20 11:04 10/13/20 11:04 10/13/20 11:04 10/13/20 11:04 Oxygen Flow Rate (L/min) 3 Oxygen Delivery Method Room Air Weight: 92.7 kg Body Mass Index (BMI) 30.2 Finger Stick Blood Glucose 173 Intake and Output for Last 24 Hours 10/11/20 10/12/20 10/13/20 23:59 23:59 23:59 Intake Total 2867.25 / 2867.25 2211 / 2211 1778 / 1778 Output Total 250 / 250 150 / 150 Balance 2867.25 / 2867.25 1960 / 1960 1628 / 1628 General: Alert, Cooperative, No apparent distress, Well developed, Well nourished, Confused, - - Elderly white male sitting up in bed appears comfortable, nontoxic HEENT: Atraumatic, PERRLA, EOMI, Normocephalic, EAC Clear, - Oral: Moist Mucosa, No Gingival or Mucosal Lesions/ Ulcerations, - - Dentition is poor with multiple chipped teeth no obvious caries noted Neck: Supple, No JVD, Trachea Midline, Thyroid Normal Size and Texture, - - Right side of neck in the submandibular region and right anterior cervical region is tender, indurated Lungs: Clear to auscultation, Normal air movement, No rhonchi, No wheeze, No rales Cardiovascular: Regular rate, Normal S1, Normal S2, No murmurs, No Ectopic Activity, No rub noted, No Gallop, - - Irregular rhythm Abdomen: Bowel Sounds Present, Soft, Non Tender, Non-Distended Extremities: No clubbing, No cyanosis, No edema, Capillary Refill Less than 3 Seconds, Peripheral Pulses Normal Skin: No rashes, No breakdown Musculoskeletal: No Tenderness to Palpation of Joints or Extremities, No Muscle Wasting, Arthritic Changes Neurological: Cranial nerves II-XII grossly intact, Neuro grossly intact, Muscle tone normal, Coordination normal, - Psych/Mental Status: - - Very pleasantly confused Laboratory Results 10/12/20 18:00: MRSA (PCR) Negative 10/13/20 05:33: WBC 8.6, RBC 3.87 L, Hgb 11.9 L, Hct 35.6 L, MCV 92.0, MCH 30.7, MCHC 33.4, RDW Std Deviation 47.1 H, RDW Coeff of Faustino 13.9, Plt Count 294, MPV 10.2, Immature Gran % (Auto) 0.800, Neut % (Auto) 74.1 H, Lymph % (Auto) 15.2 L, [place] % (Auto) 7.4, Eos % (Auto) 2.3, Baso % (Auto) 0.2, Absolute Neuts (auto) 6.4, Absolute Lymphs (auto) 1.31, Nucleated RBC % 0 10/13/20 05:33: PT 17.0 H, INR 1.4, APTT 27.9 10/13/20 05:33: Sodium 138, Potassium 3.4 L, Chloride 109 H, Carbon Dioxide 22.0, Anion Gap 7, BUN 17, Creatinine 0.66 L, Estim Creat Clear Calc 57.93, Est GFR (MDRD) Af Amer 148, Est GFR (MDRD) Non-Af 122, BUN/Creatinine Ratio 25.6 H, Glucose 112 H, Calcium 7.6 L Current Medications Acetaminophen (Acetaminophen 325 Mg Tablet) 650 mg PO Q6H PRN PRN PRN Reason: Pain Score 1-10/Temp > 100.7 F Acetaminophen (Acetaminophen 325 Mg Suppository) 650 mg RECTAL Q4H PRN PRN PRN Reason: Pain Score 1-10/Temp > 100.7 F Al Hydroxide/Mg Hydroxide (Mag Hydrox/Al Hydrox/Simeth 30 Ml Udc) 30 ml PO Q6H PRN PRN PRN Reason: Gastric Burning Albuterol Sulfate (Albuterol Ih 8.5 Gm (Proair) Inhaler (200 Puffs)) 4 - 8 puff INHALATION Q4H PRN PRN PRN Reason: Dyspnea, wheezing Bisacodyl (Bisacodyl 10 Mg Suppository) 10 mg RECTAL DAILY PRN PRN Reason: Constipation Last Admin: 10/10/20 21:01 Dose: 10 mg Documented by: Calamine/Phenol (Menthol/Lanolin/Calamine/Znox 113 Gm Tube) 1 applic TOPICAL 4X/DAY [facility]; Protocol Last Admin: 10/13/20 09:17 Dose: 1 applic Documented by: Enoxaparin Sodium (Enoxaparin 40 Mg/0.4 Ml Syringe) 40 mg SC DAILY [facility] Last Admin: 10/13/20 09:17 Dose: 40 mg Documented by: Famotidine (Famotidine 20 Mg Tablet) 20 mg PO BID [facility] Last Admin: 10/13/20 09:17 Dose: Not Given Documented by: Guaifenesin (Guaifenesin 10 Ml Udc (200mg/10ml)) 20 ml PO Q4H PRN PRN PRN Reason: COUGH Hydralazine HCl (Hydralazine 20 Mg/Ml Vial) 10 mg IV Q8H PRN PRN PRN Reason: for SBP>160 Sodium Chloride () 250 mls @ 15 mls/hr IV .[id number] PRN PRN Reason: Saline Flush Last Infusion: 10/12/20 16:12 Dose: Infused Documented by: Sodium Chloride () 250 mls @ 15 mls/hr IV .[id number] PRN PRN Reason: Additional IVPB Infusion Dextrose () 1,000 mls @ 60 mls/hr IV .[id number] [facility] Last Infusion: 10/13/20 11:20 Dose: 0 mls/hr Documented by: Piperacillin Sod/Tazobactam (Sod 3.375 gm/ Sodium Chloride) 50 mls @ 12.5 mls/hr IV Q8 [facility] Last Infusion: 10/13/20 10:17 Dose: Infused Documented by: Vancomycin IV Pharmacy to Dose (1 ea/ Sodium Chloride) 500 mls @ 250 mls/hr IV X1 PRN; Protocol PRN Reason: Rx to Dose Vancomycin HCl 1,500 mg/ (Sodium Chloride) 530 mls @ 250 mls/hr IV Q12H [facility] Last Infusion: 10/13/20 08:25 Dose: Infused Documented by: Labetalol HCl (Labetalol (Prefilled) 20 Mg/4 Ml) 20 mg IV X1 PRN PRN Reason: BLOOD PRESSURE Labetalol HCl (Labetalol (Prefilled) 20 Mg/4 Ml) 10 - 20 mg IV Q10M PRN PRN PRN Reason: to Maintain BP Goals Magnesium Hydroxide (Magnesium Hydroxide 30 Ml Udc) 30 ml PO DAILY PRN PRN PRN Reason: Constipation Melatonin (Melatonin 3 Mg Tablet) 3 mg PO QHS PRN PRN PRN Reason: INSOMNIA Ondansetron HCl (Ondansetron 4 Mg/2 Ml Vial) 4 mg IV Q8H PRN PRN PRN Reason: NAUSEA/VOMITING Prochlorperazine Edisylate (Prochlorperazine 10 Mg/2 Ml Vial) 5 mg IV Q4H PRN PRN PRN Reason: Breakthrough Nausea/Vomiting Psyllium Hydrophilic Mucilloid (Psyllium 1 Packet) 1 packet PO DAILY PRN PRN PRN Reason: Constipation Senna/Docusate Sodium (Senna/Docusate Sodium 1 Tablet) 2 tablet PO BID PRN PRN PRN Reason: Constipation Sodium Chloride (0.9% Saline Lock 10 Ml Syringe) 10 - 40 ml IV UD PRN PRN Reason: SALINE FLUSH Last Admin: 10/11/20 05:06 Dose: 10 ml Documented by: Throat Lozenges (Benzocaine/Menthol 1 Lozenge) 1 lozenge MUCOUS MEM Q2H PRN PRN PRN Reason: SORE THROAT STROKE Vital Signs/Narrative: Vital Signs Temp Pulse Resp BP Pulse Ox 10/13/20 11:04 73 18 126/73 H 97 10/13/20 09:10 97.9 F 62 18 133/80 H 97 Medical Necessity - Tobacco Use Tobacco Use: Non-smoker Assessment/Plan All Active Problems (Last Reviewed 02/12/20 @ 10:[address] Hardeep Medrano MD) Right submandibular sialadenitis (Acute) Acute encephalopathy (Acute) Aphasia (Acute) Terry's angina -IV antibiotics changed to Vanco and Zosyn yesterday continue these for now -ID consulted for help with antibiotics -Patient to the OR with Dr. Wright this morning for I&D and hypopharynx and larynx assessment -Follow OR cultures Will likely need to be followed up with dental given that this is predominantly related to dental infection most often Dysphagia -Per discussion with family patient was eating fine prior to admission -Suspect that this current dysphagia may be more related to his deep neck infection been progression of his dementia -I discussed with the daughter this morning regarding CorPak placement and she is agreeable to this for the short-term -If Dr. Wright is okay with this we will proceed with this later today and start tube feed -Continue to reassess his swallowing after I&D of the abscess -If patient improves will discontinue CorPak once p.o. intake is adequate -If patient does not improve or does not improve enough that p.o. intake is adequate we will need to address PEG placement -Where Chronic anemia -Hemoglobin stable Acute hypoxic respiratory failure -Resolved -Patient remains on room air with SPO2 97% -Question aspiration with infection related dysphagia--> completed Unasyn Metabolic encephalopathy -Resolved -Per discussion with daughter it sounds like patient is at baseline mental status with dementia GUI -Resolved Hypertension -Mild elevations overall stable -Continue as needed hydralazine for now PAF -No A. fib currently -Patient not orally anticoagulated -Continue telemetry DVT/GI prophylaxis -Subcu Lovenox -Famotidine CODE STATUS -DNR CCA okay for intubation Inpatient E&M: [id number] [facility] L3
--- NOTE | 2020-10-13 12:43 | OP.PCM_ITS ---
Report of Operation Date of Procedure: 10/13/20 Pre-Operative Diagnosis: right submandibular neck abscess Post-Operative Diagnosis: same Surgery/Procedure Performed:: Incision and drainage right neck abscess. Direct laryngoscopy Description of Surgical Findings:: pus Type of Anesthesia:: General Anesthesiologist: Renard Diehl Drains: 1 riya Estimated Blood Loss (mL): minimal Description of Procedure: The patient was taken to the operating room on 10/13/2020. He was placed in the supine position on the operating table. He was given sufficient general anesthesia. I inserted a Glidescope into the patient's oropharynx and then into the hypopharynx. The true vocal cords epiglottis,vallecula, arytenoids were all normal. The left piriform sinus was normal. The right piriform sinus had trace edema but otherwise was normal. Next the right neck was prepped and draped sterilely. 1% lidocaine with epinephrine injected into the skin overlying the intended incision site. Incision was placed 2 fingerbreadths below the body of the mandible. This was carried down through the skin with a 15 blade. Hemo stasis was achieved with monopolar cautery. Next blunt dissection was used to identify the platysma. The platysma was incised sharply with a scalpel. The fascia was then entered sharply on the inferior edge of the submandibular gland. I then used finger dissection to dissect up into the submandibular space with my finger. Once this was completed, pus was seen in the wound. This was cultured. I broke up the loculations in the abscess cavity with finger dissection. Next I irrigated the wound with copious amounts of saline. A [place] was placed into the wound. I then closed the platysma with interrupted 3-0 Vicryl. I placed a subcutaneous suture to approximate the skin without closing it. A pressure dressing was then applied. The patient was then awoken and brought to recovery room stable condition.Blood loss minimal,replacement none. sponge,needle, instrument count were correct at the end of procedure.
[2020-10-13] MEDS: Lactated Ringers 1,000 ML 100 ML IV (12:45)
--- NOTE | 2020-10-13 15:00 | NT.THERAPY_ITS ---
Nutrition Therapy Report - History Nutrition Services has been consulted to:: Manage nutrient details of diet order, Manage enteral nutrition Current diet / nutrition support order:: NPO - Anthropometric Measurements Height:: 5 ft 8.9 in Weight:: 92.7 kg Body Mass Index (BMI):: 30.2 - Relevant Labs Relevant Labs:: WBC 12.6 K/mm3 (4.4-11.0) H 10/05/20 04:48 RBC 3.87 M/mm3 (4.6-6.2) L 10/13/20 05:33 Hgb 11.9 g/dL (13.0-16.5) L 10/13/20 05:33 Hct 35.6 % (40-54) L 10/13/20 05:33 MCV 94.6 fL (80-94) H 10/06/20 09:05 MCHC 31.9 g/dL (32-36) L 10/10/20 08:23 RDW Std Deviation 47.1 fl (35.1-43.9) H 10/13/20 05:33 Neut % (Auto) 74.1 % (47-70) H 10/13/20 05:33 Lymph % (Auto) 15.2 % (19-41) L 10/13/20 05:33 Mcdonald % (Auto) 12.4 % (0-10) H 10/05/20 04:48 Absolute Neuts (auto) 8.3 X10^3/uL (2.0-7.7) H 10/08/20 06:18 Absolute Lymphs (auto) 0.60 X10^3/uL (0.83-4.51) L 10/10/20 08:23 PT 17.0 SECONDS (11.7-14.9) H 10/13/20 05:33 APTT 37.2 Seconds (24.1-36.2) H 10/04/20 23:36 Sodium 150 mmol/L (136-145) H 10/10/20 08:23 Potassium 3.4 mmol/L (3.5-5.1) L 10/13/20 05:33 Chloride 109 mmol/L (98-107) H 10/13/20 05:33 BUN 32 mg/dL (7-18) H 10/12/20 06:21 Creatinine 0.66 mg/dL (0.70-1.30) L 10/13/20 05:33 Est GFR (MDRD) Af Amer 51 mL/min (>60) L 10/04/20 23:36 Est GFR (MDRD) Non-Af 42 mL/min (>60) L 10/04/20 23:36 BUN/Creatinine Ratio 25.6 RATIO (10-20) H 10/13/20 05:33 Glucose 112 mg/dL (74-106) H 10/13/20 05:33 Hemoglobin A1c 5.7 % (3.8-5.6) H 10/05/20 04:48 Lactic Acid 2.8 mmol/L (0.4-1.9) H* 10/04/20 23:36 Calcium 7.6 mg/dL (8.5-10.1) L 10/13/20 05:33 Total Protein 8.7 g/dL (6.4-8.2) H 10/04/20 23:36 Albumin 3.1 g/dL (3.2-5.0) L 10/05/20 04:48 Globulin 4.8 g/dL (2.2-4.2) H 10/05/20 04:48 Albumin/Globulin Ratio 0.6 RATIO (0.9-2.4) L 10/05/20 04:48 Procalcitonin 0.14 ng/mL (0.00-0.09) H 10/04/20 23:36 TSH 0.35 uIU/mL (0.358-3.74) L 10/05/20 04:48 - Assessment Food / Nutrition-Related History:: Discussed w/ nursing staff. Went to OR today for I+D abscess R submanidular area. Plans to place NGT today. No new wt to assess. NPO day #8. COMPLIANCE AUDITOR following, recommending NPO status. - Nutrition Diagnosis Problem / Etiology / Signs & Symptoms (PES):: Inadequate oral intake r/t swallowing difficulty as evidence by NPO status x 8 days. - Nutrition Intervention Nutrition Prescription:: Significant risk for refeeding syndrome give lack of PO intake. Estimated nutritional needs: 10-15 calories/kg for first 3 days of nutrition support (927-1390 calories/day). - Food / Nutrient Delivery Interventions Summary of nutrition intervention:: Recommendations for enteral nutrition support, see below. Will check daily wts. Close monitoring of electrolytes for s/s refeeding syndrome. Nutrition support ordered as / adjusted to:: When appropriate for use, recommend Jevity 1.5 via NGT at goal rate of 35mL/hour w/ 100mL H2O flush every 4 hours to provide 1260 calories, 53.6 g protein, and 1238mL total fluid/day. Would start at 15mL/hour and increase by 10mL every 8 hours until goal rate is achieved. - MNT Monitoring MNT Follow-up in:: 1-2 days
--- NOTE | 2020-10-13 15:10 | RAD_ITS ---
STUDY: X-RAY - ABDOMEN/PELVIS REASON FOR EXAM: Male, 80 years old. NG placement TECHNIQUE: Single AP view of the abdomen / pelvis. COMPARISON: None. FINDINGS: The tip of the feeding tube is in the body of the stomach just distal to the gastroesophageal junction. Bibasilar patchy infiltrates and blunting of the left costophrenic angle. RAD/Abdomen Single View (Portable) IMPRESSION: The tip of the feeding tube is in the body of the stomach just distal to the gastroesophageal junction. Electronically Signed: Wes Mims, at 15:23 EST , Service support ,
[2020-10-13] MEDS: 0.9% Saline Lock 10 ML Syringe IV (15:50)
[2020-10-13] MEDS: Lidocaine 2% Jelly 1 APPLIC Tube TOPICAL (15:50)
[2020-10-13] MEDS: Jevity 1.5 1,000 ML 35 ML NG (16:03)
--- NOTE | 2020-10-13 16:34 | PCM.PN.BLA ---
Progress Note The patient feels well. He denies any neck pain PE: NG tube now in place facial nerve is intact bilaterally neck-moderate amount of serosanguinous discharge. NO hemorrhage A: s/p right neck incision and drainage and doing well P Continue IV antibiotics. Will D/C drain on or Monday. STROKE Vital Signs/Narrative: Vital Signs Temp Pulse Resp BP Pulse Ox 10/13/20 14:15 97.9 F 74 16 130/70 H 95 10/13/20 13:36 97.7 F L 75 22 H 126/85 H 95 10/13/20 13:30 77 20 H 122/77 H 94 10/13/20 13:15 80 20 H 133/78 H 96 10/13/20 13:00 86 20 H 126/82 H 97 10/13/20 12:57 97.4 F L 86 20 H 135/79 H 97
[2020-10-14] VITALS (12 sets, daily range): BP systolic 102–146; BP diastolic 62–89; PULSE 61–81; RESP 16–18; TEMP 36.2–36.7; O2SAT 94–100
--- NOTE | 2020-10-14 00:14 | NURSING ---
Increased Jevity to 25ml/hr at 0005.
[2020-10-14 06:16] LABS: Absolute Lymphocyte Count 0.78 X10^3/uL (0.83-4.51); Absolute Neutrophil Count 10.2 X10^3/uL (2.0-7.7); Basophil# 0.02 X10^3/uL; Basophil% 0.2 % (0-1); Hematocrit 37.7 % (40-54); Lymphocyte # 0.78 X10^3/ul (4.0); Lymphocyte % 6.7 % (19-41); Mean Corp Hgb Conc 31.8 g/dL (32-36); Mean Corpuscular Hgb 29.6 pg (27.0-32.0); Mean Corpuscular Volume 93.1 fL (80-94); Mean Platelet Vol. 10.3 fl (6.2-12.0); Monocyte# 0.55 X10^3/uL; Monocyte% 4.7 % (0-10); NRBC Flagged by Analyzer 0 % (0-5); Neutrophil # 10.16 X10^3/uL (2.7-7.7); Neutrophil % 87.8 % (47-70); Platelet Count 326 K/mm3 (150-450); RBC Distribution Width CV 13.9 % (11.6-14.6); RBC Distribution Width SD 46.8 fl (35.1-43.9); Red Blood Count 4.05 M/mm3 (4.6-6.2); White Blood Count 11.6 K/mm3 (4.4-11.0)
[2020-10-14 06:43] LABS: Vancomycin, Trough Level 13.1 ug/mL (5.0-15.0)
[2020-10-14 06:51] LABS: ALB/GLOB Ratio 0.5 RATIO (0.9-2.4); AST(SGOT) 21 U/L (15-37); Alanine Aminotransfer ALT/SGPT 20 U/L (16-61); Albumin, Serum 2.2 g/dL (3.2-5.0); Alkaline Phosphatase 71 U/L (45-117); Anion Gap 6 (5-15); BUN 16 mg/dL (7-18); BUN/Creat Ratio 19.6 RATIO (10-20); Calcium,Total 7.8 mg/dL (8.5-10.1); Chloride 111 mmol/L (98-107); Creatinine, Serum 0.82 mg/dL (0.70-1.30); EST Glomerular Filtration Rate 96 mL/min (>60); Est Glom Filt Rate - Afr Amer 117 mL/min (>60); Estimated Creatinine Clearance 68.35 ml/min; Globulin 4.2 g/dL (2.2-4.2); Glucose 145 mg/dL (74-106); Magnesium 2.3 mg/dL (1.6-2.6); Potassium 4.2 mmol/L (3.5-5.1); Protein, Total 6.4 g/dL (6.4-8.2); Sodium Level 141 mmol/L (136-145)
--- NOTE | 2020-10-14 07:13 | PCM.RX.CS ---
Consult Pharmacy has been consulted to manage selected antiobiotic: Vancomycin Type of Consult: Follow-up Prior Doses of Antibiotics Received/Current Regimen: currently on 1500mg IV q12h Labs: Sodium 141 mmol/L (136-145) 10/14/20 06:04 Potassium 4.2 mmol/L (3.5-5.1) 10/14/20 06:04 Chloride 111 mmol/L (98-107) H 10/14/20 06:04 Carbon Dioxide 24.0 mmol/L (21.0-32.0) 10/14/20 06:04 Anion Gap 6 (5-15) 10/14/20 06:04 BUN 16 mg/dL (7-18) 10/14/20 06:04 Creatinine 0.82 mg/dL (0.70-1.30) 10/14/20 06:04 Est GFR (MDRD) Af Amer 117 mL/min (>60) 10/14/20 06:04 Est GFR (MDRD) Non-Af 96 mL/min (>60) 10/14/20 06:04 BUN/Creatinine Ratio 19.6 RATIO (10-20) 10/14/20 06:04 Glucose 145 mg/dL (74-106) H 10/14/20 06:04 Vancomycin Trough 13.1 ug/mL (5.0-15.0) 10/14/20 06:04 Microbiology: Microbiology 10/13/20 Unknown Wound - Neck Gram Stain - Final 10/05/20 00:56 Blood Culture (Wb) - Anticubital Right Blood Culture - Final No growth in 5 days. 10/05/20 00:40 Blood Culture (Wb) - Left Hand Blood Culture - Final No growth in 5 days. 10/05/20 01:36 Mucosa - Nasopharyngeal Respiratory Panel (PCR) - Final 10/05/20 00:25 Urine Catheter - Catheter Legionella Antigen - Final 10/05/20 00:25 Urine Catheter - Catheter Streptococcus pneumoniae Antigen (M - Final 10/05/20 00:34 Mucosa - Nose SARS-CoV-2 Antigen (Rapid) - Final Weight used for dosin.3 kg Estimated Creatinine Clearance: 79.6ml/min Goal Trough: 15-20 mcg/mL Pharmacy Plan for Drug Dosing: Trough drawn before this morning's dose came back at 13.1. This is below goal range so with the next dose will increase it to 1750mg IV q12h. Will recheck the trough before the 4th new dose. The patient's CrCl of 79.6ml/min was calculated using an adjusted body weight of 79.7kg. Pharmacy Service will continue to monitor and adjust dosing as required. Follow-Up Labs: Trough Vancomycin Labs to be done on [date and time ordered]: 10/16/20 0630
[2020-10-14] MEDS: Menthol/Lanolin/Calamine/Znox 113 GM Tube 1 APPLIC TOPICAL ×4 (10:03→23:57)
[2020-10-14] MEDS: Enoxaparin 40 MG/0.4 ML Syringe SC (10:03)
--- NOTE | 2020-10-14 11:59 | PN_ITS ---
Patient Problems: Active and Suspected Problems (Last Reviewed 02/12/20 @ 10:[address] Hardeep Medrano MD) Ludwigs angina (Acute) Acute encephalopathy (Acute) Aphasia (Acute) Vitals/I&O's: Vital Signs Temp Pulse Resp BP Pulse Ox 97.3 F L 65 18 116/68 95 10/14/20 10:00 10/14/20 10:00 10/14/20 10:00 10/14/20 10:00 10/14/20 10:00 Oxygen Flow Rate (L/min) 3 Oxygen Delivery Method Room Air Weight: 93.3 kg Body Mass Index (BMI) 30.2 Finger Stick Blood Glucose 173 Intake and Output for Last 24 Hours 10/12/20 10/13/20 10/14/20 23:59 23:59 23:59 Intake Total 2211 / 2211 4049.67 / 4049.67 972.83 / 972.83 Output Total 250 / 250 150 / 150 Balance 1960 3899.67 / 3899.67 972.83 / 972.83 General: Alert, Cooperative, Well developed, Well nourished, Confused, - - Elderly white male lying in bed in restraints with Dobbhoff placement, currently calm and watching TV HEENT: Atraumatic, PERRLA, EOMI, Normocephalic, EAC Clear, - - Dobbhoff left nares Oral: Moist Mucosa, No Gingival or Mucosal Lesions/ Ulcerations, - - Poor dentition Neck: Trachea Midline, - - Dressing in place, drain in place right submandibular region Lungs: Clear to auscultation, Normal air movement, No rhonchi, No wheeze, No rales Cardiovascular: Regular rate, Regular Rhythm, Normal S1, Normal S2, No murmurs, No Ectopic Activity, No rub noted, No Gallop Abdomen: Bowel Sounds Present, Soft, Non Tender, Non-Distended Extremities: No clubbing, No cyanosis, Cool - Distal left hand, Edema - Left upper extremity distally, - - IV infiltration noted in distal left hand, fingertips on all 5 digits were blue and hand was cold Skin: No rashes, No breakdown Musculoskeletal: No Tenderness to Palpation of Joints or Extremities, No Muscle Wasting, Arthritic Changes Lymphatic: No Cervical, Supraclavicular, or Inguinal Adenopathy Neurological: Cranial nerves II-XII grossly intact, Neuro grossly intact, Muscle tone normal, Coordination normal Psych/Mental Status: - - Pleasantly confused Microbiology Past 72 Hours 10/13/20 Unknown Wound - Neck Gram Stain - Final 10/13/20 Unknown Wound - Neck Wound Culture - Preliminary No growth-Final to follow Laboratory Results 10/14/20 06:04: Vancomycin Trough 13.1 10/14/20 06:04: Sodium 141, Potassium 4.2, Chloride 111 H, Carbon Dioxide 24.0, Anion Gap 6, BUN 16, Creatinine 0.82, Estim Creat Clear Calc 68.35, Est GFR (MDRD) Af Amer 117, Est GFR (MDRD) Non-Af 96, BUN/Creatinine Ratio 19.6, Glucose 145 H, Calcium 7.8 L, Phosphorus 3.0, Magnesium 2.3, Total Bilirubin 0.50, AST 21, ALT 20, Alkaline Phosphatase 71, Total Protein 6.4, Albumin 2.2 L, Globulin 4.2, Albumin/Globulin Ratio 0.5 L 10/14/20 06:04: WBC 11.6 H, RBC 4.05 L, Hgb 12.0 L, Hct 37.7 L, MCV 93.1, MCH 29.6, MCHC 31.8 L, RDW Std Deviation 46.8 H, RDW Coeff of Faustino 13.9, Plt Count 326, MPV 10.3, Immature Gran % (Auto) 0.600, Neut % (Auto) 87.8 H, Lymph % (Auto) 6.7 L, [place] % (Auto) 4.7, Eos % (Auto) 0.0, Baso % (Auto) 0.2, Absolute Neuts (auto) 10.2 H, Absolute Lymphs (auto) 0.78 L, Nucleated RBC % 0 Current Medications Acetaminophen (Acetaminophen 325 Mg Tablet) 650 mg PO Q6H PRN PRN PRN Reason: Pain Score 1-10/Temp > 100.7 F Acetaminophen (Acetaminophen 325 Mg Suppository) 650 mg RECTAL Q4H PRN PRN PRN Reason: Pain Score 1-10/Temp > 100.7 F Al Hydroxide/Mg Hydroxide (Mag Hydrox/Al Hydrox/Simeth 30 Ml Udc) 30 ml PO Q6H PRN PRN PRN Reason: Gastric Burning Albuterol Sulfate (Albuterol Ih 8.5 Gm (Proair) Inhaler (200 Puffs)) 4 - 8 puff INHALATION Q4H PRN PRN PRN Reason: Dyspnea, wheezing Bisacodyl (Bisacodyl 10 Mg Suppository) 10 mg RECTAL DAILY PRN PRN Reason: Constipation Last Admin: 10/10/20 21:01 Dose: 10 mg Documented by: Calamine/Phenol (Menthol/Lanolin/Calamine/Znox 113 Gm Tube) 1 applic TOPICAL 4X/DAY [facility]; Protocol Last Admin: 10/14/20 10:03 Dose: 1 applic Documented by: Enoxaparin Sodium (Enoxaparin 40 Mg/0.4 Ml Syringe) 40 mg SC DAILY [facility] Last Admin: 10/14/20 10:03 Dose: 40 mg Documented by: Famotidine (Famotidine 20 Mg Tablet) 20 mg PO BID [facility] Last Admin: 10/14/20 10:03 Dose: Not Given Documented by: Guaifenesin (Guaifenesin 10 Ml Udc (200mg/10ml)) 20 ml PO Q4H PRN PRN PRN Reason: COUGH Hydralazine HCl (Hydralazine 20 Mg/Ml Vial) 10 mg IV Q8H PRN PRN PRN Reason: for SBP>160 Sodium Chloride () 250 mls @ 15 mls/hr IV .[id number] PRN PRN Reason: Saline Flush Last Infusion: 10/12/20 16:12 Dose: Infused Documented by: Sodium Chloride () 250 mls @ 15 mls/hr IV .[id number] PRN PRN Reason: Additional IVPB Infusion Piperacillin Sod/Tazobactam (Sod 3.375 gm/ Sodium Chloride) 50 mls @ 12.5 mls/hr IV Q8 [facility] Last Infusion: 10/14/20 09:24 Dose: 0 mls/hr Documented by: Vancomycin IV Pharmacy to Dose (1 ea/ Sodium Chloride) 500 mls @ 250 mls/hr IV X1 PRN; Protocol PRN Reason: Rx to Dose Enteral Nutritional Formula (Jevity 1.5) 1,000 mls @ 35 mls/hr NG .[id number] [facility] Last Admin: 10/13/20 16:03 Dose: 35 mls/hr Documented by: Vancomycin HCl 1,750 mg/ (Sodium Chloride) 535 mls @ 250 mls/hr IV Q12H [facility] Labetalol HCl (Labetalol (Prefilled) 20 Mg/4 Ml) 20 mg IV X1 PRN PRN Reason: BLOOD PRESSURE Labetalol HCl (Labetalol (Prefilled) 20 Mg/4 Ml) 10 - 20 mg IV Q10M PRN PRN PRN Reason: to Maintain BP Goals Magnesium Hydroxide (Magnesium Hydroxide 30 Ml Udc) 30 ml PO DAILY PRN PRN PRN Reason: Constipation Melatonin (Melatonin 3 Mg Tablet) 3 mg PO QHS PRN PRN PRN Reason: INSOMNIA Ondansetron HCl (Ondansetron 4 Mg/2 Ml Vial) 4 mg IV Q8H PRN PRN PRN Reason: NAUSEA/VOMITING Prochlorperazine Edisylate (Prochlorperazine 10 Mg/2 Ml Vial) 5 mg IV Q4H PRN PRN PRN Reason: Breakthrough Nausea/Vomiting Psyllium Hydrophilic Mucilloid (Psyllium 1 Packet) 1 packet PO DAILY PRN PRN PRN Reason: Constipation Senna/Docusate Sodium (Senna/Docusate Sodium 1 Tablet) 2 tablet PO BID PRN PRN PRN Reason: Constipation Sodium Chloride (0.9% Saline Lock 10 Ml Syringe) 10 - 40 ml IV UD PRN PRN Reason: SALINE FLUSH Last Admin: 10/13/20 15:50 Dose: 10 ml Documented by: Throat Lozenges (Benzocaine/Menthol 1 Lozenge) 1 lozenge MUCOUS MEM Q2H PRN PRN PRN Reason: SORE THROAT STROKE Vital Signs/Narrative: Vital Signs Temp Pulse Resp BP Pulse Ox 10/14/20 10:00 97.3 F L 65 18 116/68 95 10/14/20 08:00 97.6 F L 71 18 122/81 H 96 Medical Necessity - Tobacco Use Tobacco Use: Non-smoker Assessment/Plan All Active Problems (Last Reviewed 02/12/20 @ 10:[address] Hardeep Medrano MD) Ludwigs angina (Acute) Right submandibular sialadenitis (Acute) Acute encephalopathy (Acute) Aphasia (Acute) Terry's angina -Status post I&D on 10/13/[address] Wright -Robert drain in place with probable removal in the next 24 to 48 hours -Lalo Cotton Mckinley for now -Factious diseases following -OR cultures with no growth to date but anaerobic culture still pending -Will likely need to be followed up with dental given that this is predominantly related to dental infection most often Dysphagia -Per discussion with family patient was eating fine prior to admission -Suspect that this current dysphagia may be more related to his deep neck infe ction been progression of his dementia -Dobbhoff placed yesterday in left nares patient tolerating tube feeds without any issues -Add 100 cc of free water via Dobbhoff every 3 hours -Continue speech therapy -Note from today reviewed still with difficulty following commands and with ice chips voice was wet and gurgly -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 Buck he recommended vascular studies-these were ordered Mild leukocytosis -Suspect reactive in the postoperative period -Monitor Chronic anemia -Hemoglobin stable Acute hypoxic respiratory failure -Resolved -Patient remains on room air with SPO2 95-96% -Question aspiration with infection related dysphagia--> completed Unasyn Metabolic encephalopathy -Resolved -Per discussion with daughter it sounds like patient is at baseline mental status with dementia GUI -Resolved Hypertension -Mild elevations overall stable -Continue as needed hydralazine for now PAF -Not A. fib currently -Patient not orally anticoagulated -Continue telemetry DVT/GI prophylaxis -Subcu Lovenox -Famotidine CODE STATUS -DNR CCA okay for intubation Inpatient E&M: [id number] [facility] Hosp L3
[2020-10-14] MEDS: 0.9% Saline Lock 10 ML Syringe IV (14:00)
--- NOTE | 2020-10-14 15:54 | PCM.PN.ID ---
Patient Problems: Active and Suspected Problems (Last Reviewed 02/12/20 @ 10:[address] Hardeep Medrano MD) Ludwigs angina (Acute) Acute encephalopathy (Acute) Aphasia (Acute) Subjective: Feeling ok, no complaints, no fever - Physical Exam Vitals/I&O's: Vital Signs Temp Pulse Resp BP Pulse Ox 97.3 F L 71 18 102/62 95 10/14/20 14:00 10/14/20 14:00 10/14/20 14:00 10/14/20 14:00 10/14/20 14:00 Oxygen Flow Rate (L/min) 3 Oxygen Delivery Method Room Air Weight: 93.3 kg Body Mass Index (BMI) 30.2 Finger Stick Blood Glucose 173 Intake and Output for Last 24 Hours 10/12/20 10/13/20 10/14/20 23:59 23:59 23:59 Intake Total 2211 / 2211 4049.67 / 4049.67 1072.83 / 1072.83 Output Total 250 / 250 150 / 150 Balance 1960 3899.67 / 3899.67 1072.83 / 1072.83 General: Cooperative, No apparent distress Lungs: Clear to auscultation, Normal air movement Cardiovascular: Regular rate, Regular Rhythm Abdomen: Soft, Non Tender, Non-Distended Skin: No rashes Microbiology Past 72 Hours 10/13/20 Unknown Wound - Neck Gram Stain - Final 10/13/20 Unknown Wound - Neck Wound Culture - Preliminary No growth-Final to follow Laboratory Results 10/14/20 06:04: Vancomycin Trough 13.1 10/14/20 06:04: Sodium 141, Potassium 4.2, Chloride 111 H, Carbon Dioxide 24.0, Anion Gap 6, BUN 16, Creatinine 0.82, Estim Creat Clear Calc 68.35, Est GFR (MDRD) Af Amer 117, Est GFR (MDRD) Non-Af 96, BUN/Creatinine Ratio 19.6, Glucose 145 H, Calcium 7.8 L, Phosphorus 3.0, Magnesium 2.3, Total Bilirubin 0.50, AST 21, ALT 20, Alkaline Phosphatase 71, Total Protein 6.4, Albumin 2.2 L, Globulin 4.2, Albumin/Globulin Ratio 0.5 L 10/14/20 06:04: WBC 11.6 H, RBC 4.05 L, Hgb 12.0 L, Hct 37.7 L, MCV 93.1, MCH 29.6, MCHC 31.8 L, RDW Std Deviation 46.8 H, RDW Coeff of Faustino 13.9, Plt Count 326, MPV 10.3, Immature Gran % (Auto) 0.600, Neut % (Auto) 87.8 H, Lymph % (Auto) 6.7 L, [place] % (Auto) 4.7, Eos % (Auto) 0.0, Baso % (Auto) 0.2, Absolute Neuts (auto) 10.2 H, Absolute Lymphs (auto) 0.78 L, Nucleated RBC % 0 Current Medications Acetaminophen (Acetaminophen 325 Mg Tablet) 650 mg PO Q6H PRN PRN PRN Reason: Pain Score 1-10/Temp > 100.7 F Acetaminophen (Acetaminophen 325 Mg Suppository) 650 mg RECTAL Q4H PRN PRN PRN Reason: Pain Score 1-10/Temp > 100.7 F Al Hydroxide/Mg Hydroxide (Mag Hydrox/Al Hydrox/Simeth 30 Ml Udc) 30 ml PO Q6H PRN PRN PRN Reason: Gastric Burning Albuterol Sulfate (Albuterol Ih 8.5 Gm (Proair) Inhaler (200 Puffs)) 4 - 8 puff INHALATION Q4H PRN PRN PRN Reason: Dyspnea, wheezing Bisacodyl (Bisacodyl 10 Mg Suppository) 10 mg RECTAL DAILY PRN PRN Reason: Constipation Last Admin: 10/10/20 21:01 Dose: 10 mg Documented by: Calamine/Phenol (Menthol/Lanolin/Calamine/Znox 113 Gm Tube) 1 applic TOPICAL 4X/DAY [facility]; Protocol Last Admin: 10/14/20 14:00 Dose: 1 applic Documented by: Enoxaparin Sodium (Enoxaparin 40 Mg/0.4 Ml Syringe) 40 mg SC DAILY [facility] Last Admin: 10/14/20 10:03 Dose: 40 mg Documented by: Famotidine (Famotidine 20 Mg Tablet) 20 mg PO BID [facility] Last Admin: 10/14/20 10:03 Dose: Not Given Documented by: Guaifenesin (Guaifenesin 10 Ml Udc (200mg/10ml)) 20 ml PO Q4H PRN PRN PRN Reason: COUGH Hydralazine HCl (Hydralazine 20 Mg/Ml Vial) 10 mg IV Q8H PRN PRN PRN Reason: for SBP>160 Sodium Chloride () 250 mls @ 15 mls/hr IV .[id number] PRN PRN Reason: Saline Flush Last Infusion: 10/12/20 16:12 Dose: Infused Documented by: Sodium Chloride () 250 mls @ 15 mls/hr IV .[id number] PRN PRN Reason: Additional IVPB Infusion Piperacillin Sod/Tazobactam (Sod 3.375 gm/ Sodium Chloride) 50 mls @ 12.5 mls/hr IV Q8 [facility] Last Infusion: 10/14/20 09:24 Dose: 0 mls/hr Documented by: Vancomycin IV Pharmacy to Dose (1 ea/ Sodium Chloride) 500 mls @ 250 mls/hr IV X1 PRN; Protocol PRN Reason: Rx to Dose Enteral Nutritional Formula (Jevity 1.5) 1,000 mls @ 35 mls/hr NG .[id number] [facility] Last Admin: 10/13/20 16:03 Dose: 35 mls/hr Documented by: Vancomycin HCl 1,750 mg/ (Sodium Chloride) 535 mls @ 250 mls/hr IV Q12H [facility] Labetalol HCl (Labetalol (Prefilled) 20 Mg/4 Ml) 20 mg IV X1 PRN PRN Reason: BLOOD PRESSURE Labetalol HCl (Labetalol (Prefilled) 20 Mg/4 Ml) 10 - 20 mg IV Q10M PRN PRN PRN Reason: to Maintain BP Goals Magnesium Hydroxide (Magnesium Hydroxide 30 Ml Udc) 30 ml PO DAILY PRN PRN PRN Reason: Constipation Melatonin (Melatonin 3 Mg Tablet) 3 mg PO QHS PRN PRN PRN Reason: INSOMNIA Ondansetron HCl (Ondansetron 4 Mg/2 Ml Vial) 4 mg IV Q8H PRN PRN PRN Reason: NAUSEA/VOMITING Prochlorperazine Edisylate (Prochlorperazine 10 Mg/2 Ml Vial) 5 mg IV Q4H PRN PRN PRN Reason: Breakthrough Nausea/Vomiting Psyllium Hydrophilic Mucilloid (Psyllium 1 Packet) 1 packet PO DAILY PRN PRN PRN Reason: Constipation Senna/Docusate Sodium (Senna/Docusate Sodium 1 Tablet) 2 tablet PO BID PRN PRN PRN Reason: Constipation Sodium Chloride (0.9% Saline Lock 10 Ml Syringe) 10 - 40 ml IV UD PRN PRN Reason: SALINE FLUSH Last Admin: 10/14/20 14:00 Dose: 20 ml Documented by: Throat Lozenges (Benzocaine/Menthol 1 Lozenge) 1 lozenge MUCOUS MEM Q2H PRN PRN PRN Reason: SORE THROAT Medical Necessity - Tobacco Use Tobacco Use: Non-smoker Route of nutrition/ use of supplements: [] Nutritional Intake: [] IV Site: [] Cheung Catheter: [] - Assessment/Plan Antibiotics: [] Assessment/Plan: [] Active and Suspected Problems (Last Reviewed 02/12/20 @ 10:[address] 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 Now s/p I&D by Dr. Wright 10/13/20. Cont vanc/zosyn. Will follow
--- NOTE | 2020-10-14 16:46 | PCM.PN.BLA ---
Progress Note The patient seems to be tolerating tube feeds. avss Neck-dressing in place. no bleeding. A:POD#1 s/p incision and drainage right neck abscess P: follow cultures continue iv abx. STROKE Vital Signs/Narrative: Vital Signs Temp Pulse Resp BP Pulse Ox 10/14/20 16:00 97.3 F L 77 18 144/77 H 94 10/14/20 14:00 97.3 F L 71 18 102/62 95
--- NOTE | 2020-10-14 22:50 | RAD_ITS ---
STUDY: X-RAY CHEST REASON FOR EXAM: Male, 80 years old. PICC LINE PLACEMENT TECHNIQUE: Single AP portable view of the chest. COMPARISON: 10/05/20. FINDINGS: Feeding tube terminates in the mid stomach. Right PICC line terminates near the cavoatrial junction. Incomplete expansion of the lungs. There is hazy bilateral pulmonary opacity most pronounced in the left lung base. No gross effusion Normal heart size. Degenerative changes of the spine and shoulders. RAD/Chest 1 View IMPRESSION: Feeding tube terminates in the mid stomach. Right PICC line terminates near the cavoatrial junction. Bilateral hazy pulmonary opacities most pronounced in the lung bases. Electronically Signed: Florian Rodriguez MD at 23:16 EST , Service support ,
[2020-10-15] VITALS (15 sets, daily range): BP systolic 134–165; BP diastolic 73–97; PULSE 61–91; RESP 16–18; TEMP 36.4–37.1; O2SAT 94–96; BMI 30.5
[2020-10-15] MEDS: Jevity 1.5 1,000 ML 35 ML NG (01:13)
[2020-10-15 06:52] LABS: Absolute Lymphocyte Count 1.45 X10^3/uL (0.83-4.51); Absolute Neutrophil Count 8.4 X10^3/uL (2.0-7.7); Basophil# 0.02 X10^3/uL; Basophil% 0.2 % (0-1); Eosinophil# 0.23 X10^3/uL; Eosinophils% 2.1 % (0-5); Hematocrit 39.5 % (40-54); Hemoglobin 12.8 g/dL (13.0-16.5); Lymphocyte # 1.45 X10^3/ul (4.0); Lymphocyte % 13.4 % (19-41); Mean Corp Hgb Conc 32.4 g/dL (32-36); Mean Corpuscular Hgb 30.1 pg (27.0-32.0); Mean Corpuscular Volume 92.9 fL (80-94); Mean Platelet Vol. 10.2 fl (6.2-12.0); Monocyte# 0.69 X10^3/uL; Monocyte% 6.4 % (0-10); NRBC Flagged by Analyzer 0 % (0-5); Neutrophil # 8.37 X10^3/uL (2.7-7.7); Neutrophil % 77.3 % (47-70); Platelet Count 371 K/mm3 (150-450); RBC Distribution Width CV 14.2 % (11.6-14.6); RBC Distribution Width SD 47.6 fl (35.1-43.9); Red Blood Count 4.25 M/mm3 (4.6-6.2); White Blood Count 10.8 K/mm3 (4.4-11.0)
[2020-10-15 07:22] LABS: Anion Gap 5 (5-15); BUN 18 mg/dL (7-18); BUN/Creat Ratio 21.1 RATIO (10-20); Calcium,Total 7.8 mg/dL (8.5-10.1); Chloride 109 mmol/L (98-107); Creatinine, Serum 0.85 mg/dL (0.70-1.30); EST Glomerular Filtration Rate 92 mL/min (>60); Est Glom Filt Rate - Afr Amer 111 mL/min (>60); Estimated Creatinine Clearance 65.94 ml/min; Glucose 111 mg/dL (74-106); Magnesium 2.2 mg/dL (1.6-2.6); Phosphorus 2.4 mg/dL (2.5-4.9); Potassium 3.2 mmol/L (3.5-5.1); Sodium Level 139 mmol/L (136-145)
[2020-10-15] MEDS: Enoxaparin 40 MG/0.4 ML Syringe SC (08:26)
[2020-10-15] MEDS: Menthol/Lanolin/Calamine/Znox 113 GM Tube 1 APPLIC TOPICAL ×4 (08:26→22:30)
--- NOTE | 2020-10-15 08:50 | NT.THERAPY_ITS ---
Nutrition Therapy Report - History Nutrition Services has been consulted to:: Manage nutrient details of diet order, Manage enteral nutrition Current diet / nutrition support order:: NPO; Jevity 1.5 @ 35mL/hour w/ 200mL flush q 4 hours to provide 1260 calories, 53.6 g protein, and 1838mL total f luid/day. - Anthropometric Measurements Height:: 5 ft 8.9 in Weight:: 93.6 kg Body Mass Index (BMI):: 30.5 - Relevant Labs Relevant Labs:: WBC 11.6 K/mm3 (4.4-11.0) H 10/14/20 06:04 RBC 4.25 M/mm3 (4.6-6.2) L 10/15/20 06:30 Hgb 12.8 g/dL (13.0-16.5) L 10/15/20 06:30 Hct 39.5 % (40-54) L 10/15/20 06:30 MCV 94.6 fL (80-94) H 10/06/20 09:05 MCHC 31.8 g/dL (32-36) L 10/14/20 06:04 RDW Std Deviation 47.6 fl (35.1-43.9) H 10/15/20 06:30 Neut % (Auto) 77.3 % (47-70) H 10/15/20 06:30 Lymph % (Auto) 13.4 % (19-41) L 10/15/20 06:30 [place] % (Auto) 12.4 % (0-10) H 10/05/20 04:48 Absolute Neuts (auto) 8.4 X10^3/uL (2.0-7.7) H 10/15/20 06:30 Absolute Lymphs (auto) 0.78 X10^3/uL (0.83-4.51) L 10/14/20 06:04 PT 17.0 SECONDS (11.7-14.9) H 10/13/20 05:33 APTT 37.2 Seconds (24.1-36.2) H 10/04/20 23:36 Sodium 150 mmol/L (136-145) H 10/10/20 08:23 Potassium 3.2 mmol/L (3.5-5.1) L 10/15/20 06:30 Chloride 109 mmol/L (98-107) H 10/15/20 06:30 BUN 32 mg/dL (7-18) H 10/12/20 06:21 Creatinine 0.66 mg/dL (0.70-1.30) L 10/13/20 05:33 Est GFR (MDRD) Af Amer 51 mL/min (>60) L 10/04/20 23:36 Est GFR (MDRD) Non-Af 42 mL/min (>60) L 10/04/20 23:36 BUN/Creatinine Ratio 21.1 RATIO (10-20) H 10/15/20 06:30 Glucose 111 mg/dL (74-106) H 10/15/20 06:30 Hemoglobin A1c 5.7 % (3.8-5.6) H 10/05/20 04:48 Lactic Acid 2.8 mmol/L (0.4-1.9) H* 10/04/20 23:36 Calcium 7.8 mg/dL (8.5-10.1) L 10/15/20 06:30 Phosphorus 2.4 mg/dL (2.5-4.9) L 10/15/20 06:30 Total Protein 8.7 g/dL (6.4-8.2) H 10/04/20 23:36 Albumin 2.2 g/dL (3.2-5.0) L 10/14/20 06:04 Globulin 4.8 g/dL (2.2-4.2) H 10/05/20 04:48 Albumin/Globulin Ratio 0.5 RATIO (0.9-2.4) L 10/14/20 06:04 Procalcitonin 0.14 ng/mL (0.00-0.09) H 10/04/20 23:36 TSH 0.35 uIU/mL (0.358-3.74) L 10/05/20 04:48 - Assessment Food / Nutrition-Related History:: Tube feeds continue via NGT. Currently running at 35mL/hour. No indications of refeeding syndrome at this time. Wt increase of 0.3 kg since last review. No reported BMs. Dulcolax given 10/10; senna/doc PRN ordered but not administered. - Nutrition Diagnosis Problem / Etiology / Signs & Symptoms (PES):: Inadequate oral intake r/t swallowing difficulty as evidence by NPO status x 8 days. Evidence of Malnutrition Exists:: No - Nutrition Intervention Nutrition Prescription:: Day #3 of enteral nutrition support- will increase calories/protein per day to ~15 calories/kg/day (1404 calories). Estimated needs for long-term nutrition support: 0864-4291 calories, 70-80 g protein. - Food / Nutrient Delivery Interventions Summary of nutrition intervention:: Will increase rate of enteral nutrition. Continue 200mL flushes q 4 hours as ordered. Nutrition support ordered as / adjusted to:: Jevity 1.5 via NGT at 40mL/hour w/ 200mL H2O flush every 4 hours to provide 1440 calories, 61 g protein, and 1929mL total fluid/day. - MNT Monitoring Further MNT monitoring and evaluation required?: Yes MNT Follow-up in:: 1-2 days
--- NOTE | 2020-10-15 10:04 | NURSING ---
increased jevity to 40 ml/hr at this time per channel marketing specialist order
--- NOTE | 2020-10-15 11:29 | PN.ID_ITS ---
Patient Problems: Active and Suspected Problems (Last Reviewed 02/12/20 @ 10:[address] Hardeep Medrano MD) Ludwigs angina (Acute) Acute encephalopathy (Acute) Aphasia (Acute) Subjective: Feeling ok, no complaints, no fever - Physical Exam Vitals/I&O's: Vital Signs Temp Pulse Resp BP Pulse Ox 97.6 F L 72 18 134/88 H 95 10/15/20 10:00 10/15/20 10:00 10/15/20 10:00 10/15/20 10:00 10/15/20 10:00 Oxygen Flow Rate (L/min) 3 Oxygen Delivery Method Room Air Weight: 93.6 kg Body Mass Index (BMI) 30.5 Finger Stick Blood Glucose 173 Intake and Output for Last 24 Hours 10/13/20 10/14/20 10/15/20 23:59 23:59 23:59 Intake Total 4049.67 / 4049.67 2267.83 / 2267.83 954 / 954 Output Total 150 / 150 Balance 3899.67 / 3899.67 2267.83 / 2267.83 954 / 954 General: Cooperative, No apparent distress Lungs: Clear to auscultation, Normal air movement Cardiovascular: Regular rate, Regular Rhythm Abdomen: Soft, Non Tender, Non-Distended Skin: No rashes Microbiology Past 72 Hours 10/13/20 Unknown Wound - Neck Gram Stain - Final 10/13/20 Unknown Wound - Neck Wound Culture - Final No growth aerobically. 10/13/20 Unknown Wound - Neck Anaerobic Culture - Preliminary Checking for anaerobes, further studies to follow. Laboratory Results 10/15/20 06:30: Sodium 139, Potassium 3.2 L, Chloride 109 H, Carbon Dioxide 25.0, Anion Gap 5, BUN 18, Creatinine 0.85, Estim Creat Clear Calc 65.94, Est GFR (MDRD) Af Amer 111, Est GFR (MDRD) Non-Af 92, BUN/Creatinine Ratio 21.1 H, Glucose 111 H, Calcium 7.8 L, Phosphorus 2.4 L, Magnesium 2.2 10/15/20 06:30: WBC 10.8, RBC 4.25 L, Hgb 12.8 L, Hct 39.5 L, MCV 92.9, MCH 30.1, MCHC 32.4, RDW Std Deviation 47.6 H, RDW Coeff of Faustino 14.2, Plt Count 371, MPV 10.2, Immature Gran % (Auto) 0.600, Neut % (Auto) 77.3 H, Lymph % (Auto) 13.4 L, [place] % (Auto) 6.4, Eos % (Auto) 2.1, Baso % (Auto) 0.2, Absolute Neuts (auto) 8.4 H, Absolute Lymphs (auto) 1.45, Nucleated RBC % 0 Current Medications Acetaminophen (Acetaminophen 325 Mg Tablet) 650 mg PO Q6H PRN PRN PRN Reason: Pain Score 1-10/Temp > 100.7 F Acetaminophen (Acetaminophen 325 Mg Suppository) 650 mg RECTAL Q4H PRN PRN PRN Reason: Pain Score 1-10/Temp > 100.7 F Al Hydroxide/Mg Hydroxide (Mag Hydrox/Al Hydrox/Simeth 30 Ml Udc) 30 ml PO Q6H PRN PRN PRN Reason: Gastric Burning Albuterol Sulfate (Albuterol Ih 8.5 Gm (Proair) Inhaler (200 Puffs)) 4 - 8 puff INHALATION Q4H PRN PRN PRN Reason: Dyspnea, wheezing Bisacodyl (Bisacodyl 10 Mg Suppository) 10 mg RECTAL DAILY PRN PRN Reason: Constipation Last Admin: 10/10/20 21:01 Dose: 10 mg Documented by: Calamine/Phenol (Menthol/Lanolin/Calamine/Znox 113 Gm Tube) 1 applic TOPICAL 4X/DAY [facility]; Protocol Last Admin: 10/15/20 08:26 Dose: 1 applic Documented by: Enoxaparin Sodium (Enoxaparin 40 Mg/0.4 Ml Syringe) 40 mg SC DAILY [facility] Last Admin: 10/15/20 08:26 Dose: 40 mg Documented by: Famotidine (Famotidine 20 Mg Tablet) 20 mg PO BID [facility] Last Admin: 10/15/20 08:26 Dose: Not Given Documented by: Guaifenesin (Guaifenesin 10 Ml Udc (200mg/10ml)) 20 ml PO Q4H PRN PRN PRN Reason: COUGH Hydralazine HCl (Hydralazine 20 Mg/Ml Vial) 10 mg IV Q8H PRN PRN PRN Reason: for SBP>160 Sodium Chloride () 250 mls @ 15 mls/hr IV .[id number] PRN PRN Reason: Saline Flush Last Infusion: 10/12/20 16:12 Dose: Infused Documented by: Sodium Chloride () 250 mls @ 15 mls/hr IV .[id number] PRN PRN Reason: Additional IVPB Infusion Vancomycin IV Pharmacy to Dose (1 ea/ Sodium Chloride) 500 mls @ 250 mls/hr IV X1 PRN; Protocol PRN Reason: Rx to Dose Enteral Nutritional Formula (Jevity 1.5) 1,000 mls @ 40 mls/hr NG .Q25H [facility] Last Admin: 10/15/20 01:13 Dose: 35 mls/hr Documented by: Vancomycin HCl 1,750 mg/ (Sodium Chloride) 535 mls @ 250 mls/hr IV Q12H [facility] Last Infusion: 10/15/20 02:34 Dose: Infused Documented by: Piperacillin Sod/Tazobactam (Sod 3.375 gm/ Sodium Chloride) 50 mls @ 12.5 mls/hr IV Q8 [facility] Labetalol HCl (Labetalol (Prefilled) 20 Mg/4 Ml) 20 mg IV X1 PRN PRN Reason: BLOOD PRESSURE Labetalol HCl (Labetalol (Prefilled) 20 Mg/4 Ml) 10 - 20 mg IV Q10M PRN PRN PRN Reason: to Maintain BP Goals Magnesium Hydroxide (Magnesium Hydroxide 30 Ml Udc) 30 ml PO DAILY PRN PRN PRN Reason: Constipation Melatonin (Melatonin 3 Mg Tablet) 3 mg PO QHS PRN PRN PRN Reason: INSOMNIA Ondansetron HCl (Ondansetron 4 Mg/2 Ml Vial) 4 mg IV Q8H PRN PRN PRN Reason: NAUSEA/VOMITING Prochlorperazine Edisylate (Prochlorperazine 10 Mg/2 Ml Vial) 5 mg IV Q4H PRN PRN PRN Reason: Breakthrough Nausea/Vomiting Psyllium Hydrophilic Mucilloid (Psyllium 1 Packet) 1 packet PO DAILY PRN PRN PRN Reason: Constipation Senna/Docusate Sodium (Senna/Docusate Sodium 1 Tablet) 2 tablet PO BID PRN PRN PRN Reason: Constipation Sodium Chloride (0.9% Saline Lock 10 Ml Syringe) 10 - 40 ml IV UD PRN PRN Reason: SALINE FLUSH Last Admin: 10/14/20 14:00 Dose: 20 ml Documented by: Throat Lozenges (Benzocaine/Menthol 1 Lozenge) 1 lozenge MUCOUS MEM Q2H PRN PRN PRN Reason: SORE THROAT Medical Necessity - Tobacco Use Tobacco Use: Non-smoker Route of nutrition/ use of supplements: [] Nutritional Intake: [] IV Site: [] Cheung Catheter: [] - Assessment/Plan Antibiotics: [] Assessment/Plan: [] Active and Suspected Problems (Last Reviewed 02/12/20 @ 10:[address] 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 Now s/p I&D by Dr. Wright 10/13/20. Surg cx neg so far. Cont vanc/zosyn. Will follow
--- NOTE | 2020-10-15 14:07 | PN_ITS ---
Patient Problems: Active and Suspected Problems (Last Reviewed 02/12/20 @ 10:[address] Hardeep Medrano MD) Ludwigs angina (Acute) Acute encephalopathy (Acute) Aphasia (Acute) Subjective: No issues overnight. Patient is tolerating tube feed without issues. PICC line placed yesterday. Vitals/I&O's: Vital Signs Temp Pulse Resp BP Pulse Ox 98.1 F 71 18 143/83 H 96 10/15/20 11:59 10/15/20 11:59 10/15/20 11:59 10/15/20 11:59 10/15/20 11:59 Oxygen Flow Rate (L/min) 3 Oxygen Delivery Method Room Air Weight: 93.6 kg Body Mass Index (BMI) 30.5 Finger Stick Blood Glucose 173 Intake and Output for Last 24 Hours 10/13/20 10/14/20 10/15/20 23:59 23:59 23:59 Intake Total 4049.67 / 4049.67 2267.83 / 2267.83 1365 / 1365 Output Total 150 / 150 Balance 3899.67 / 3899.67 2267.83 / 2267.83 1365 / 1365 General: Alert, Cooperative - Intermittently, Well developed, Well nourished, Confused, - - Elderly white male lying in bed, watching TV, appears comfortable HEENT: Atraumatic, Normocephalic Oral: Dry Mucosa - With dried mucous and oral cavity Neck: Supple, Trachea Midline, - - Neck bandage still in place, minimal d rainage, I&D site without erythema and wick in place Lungs: Clear to auscultation, Normal air movement, No rhonchi, No wheeze, No rales Cardiovascular: Regular rate, Regular Rhythm, Normal S1, Normal S2, No murmurs, No Ectopic Activity, No rub noted, No Gallop Abdomen: Bowel Sounds Present, Soft, Non Tender, Non-Distended Extremities: No clubbing, No cyanosis, No edema, Capillary Refill Less than 3 Seconds, Peripheral Pulses Normal Psych/Mental Status: - - Patient is impulsive rotations with female staff Microbiology Past 72 Hours 10/13/20 Unknown Wound - Neck Gram Stain - Final 10/13/20 Unknown Wound - Neck Wound Culture - Final No growth aerobically. 10/13/20 Unknown Wound - Neck Anaerobic Culture - Preliminary Checking for anaerobes, further studies to follow. Laboratory Results 10/15/20 06:30: Sodium 139, Potassium 3.2 L, Chloride 109 H, Carbon Dioxide 25.0, Anion Gap 5, BUN 18, Creatinine 0.85, Estim Creat Clear Calc 65.94, Est GFR (MDRD) Af Amer 111, Est GFR (MDRD) Non-Af 92, BUN/Creatinine Ratio 21.1 H, Glucose 111 H, Calcium 7.8 L, Phosphorus 2.4 L, Magnesium 2.2 10/15/20 06:30: WBC 10.8, RBC 4.25 L, Hgb 12.8 L, Hct 39.5 L, MCV 92.9, MCH 30.1, MCHC 32.4, RDW Std Deviation 47.6 H, RDW Coeff of Faustino 14.2, Plt Count 371, MPV 10.2, Immature Gran % (Auto) 0.600, Neut % (Auto) 77.3 H, Lymph % (Auto) 13.4 L, [place] % (Auto) 6.4, Eos % (Auto) 2.1, Baso % (Auto) 0.2, Absolute Neuts (auto) 8.4 H, Absolute Lymphs (auto) 1.45, Nucleated RBC % 0 Current Medications Acetaminophen (Acetaminophen 325 Mg Tablet) 650 mg PO Q6H PRN PRN PRN Reason: Pain Score 1-10/Temp > 100.7 F Acetaminophen (Acetaminophen 325 Mg Suppository) 650 mg RECTAL Q4H PRN PRN PRN Reason: Pain Score 1-10/Temp > 100.7 F Al Hydroxide/Mg Hydroxide (Mag Hydrox/Al Hydrox/Simeth 30 Ml Udc) 30 ml PO Q6H PRN PRN PRN Reason: Gastric Burning Albuterol Sulfate (Albuterol Ih 8.5 Gm (Proair) Inhaler (200 Puffs)) 4 - 8 puff INHALATION Q4H PRN PRN PRN Reason: Dyspnea, wheezing Bisacodyl (Bisacodyl 10 Mg Suppository) 10 mg RECTAL DAILY PRN PRN Reason: Constipation Last Admin: 10/10/20 21:01 Dose: 10 mg Documented by: Calamine/Phenol (Menthol/Lanolin/Calamine/Znox 113 Gm Tube) 1 applic TOPICAL 4X/DAY [facility]; Protocol Last Admin: 10/15/20 08:26 Dose: 1 applic Documented by: Enoxaparin Sodium (Enoxaparin 40 Mg/0.4 Ml Syringe) 40 mg SC DAILY [facility] Last Admin: 10/15/20 08:26 Dose: 40 mg Documented by: Famotidine (Famotidine 20 Mg Tablet) 20 mg PO BID [facility] Last Admin: 10/15/20 08:26 Dose: Not Given Documented by: Guaifenesin (Guaifenesin 10 Ml Udc (200mg/10ml)) 20 ml PO Q4H PRN PRN PRN Reason: COUGH Hydralazine HCl (Hydralazine 20 Mg/Ml Vial) 10 mg IV Q8H PRN PRN PRN Reason: for SBP>160 Sodium Chloride () 250 mls @ 15 mls/hr IV .[id number] PRN PRN Reason: Saline Flush Last Infusion: 10/12/20 16:12 Dose: Infused Documented by: Sodium Chloride () 250 mls @ 15 mls/hr IV .[id number] PRN PRN Reason: Additional IVPB Infusion Vancomycin IV Pharmacy to Dose (1 ea/ Sodium Chloride) 500 mls @ 250 mls/hr IV X1 PRN; Protocol PRN Reason: Rx to Dose Enteral Nutritional Formula (Jevity 1.5) 1,000 mls @ 40 mls/hr NG .Q25H [facility] Last Admin: 10/15/20 01:13 Dose: 35 mls/hr Documented by: Vancomycin HCl 1,750 mg/ (Sodium Chloride) 535 mls @ 250 mls/hr IV Q12H [facility] Last Admin: 10/15/20 11:58 Dose: 250 mls/hr Documented by: Piperacillin Sod/Tazobactam (Sod 3.375 gm/ Sodium Chloride) 50 mls @ 12.5 mls/hr IV Q8 [facility] Labetalol HCl (Labetalol (Prefilled) 20 Mg/4 Ml) 20 mg IV X1 PRN PRN Reason: BLOOD PRESSURE Labetalol HCl (Labetalol (Prefilled) 20 Mg/4 Ml) 10 - 20 mg IV Q10M PRN PRN PRN Reason: to Maintain BP Goals Magnesium Hydroxide (Magnesium Hydroxide 30 Ml Udc) 30 ml PO DAILY PRN PRN PRN Reason: Constipation Melatonin (Melatonin 3 Mg Tablet) 3 mg PO QHS PRN PRN PRN Reason: INSOMNIA Ondansetron HCl (Ondansetron 4 Mg/2 Ml Vial) 4 mg IV Q8H PRN PRN PRN Reason: NAUSEA/VOMITING Prochlorperazine Edisylate (Prochlorperazine 10 Mg/2 Ml Vial) 5 mg IV Q4H PRN PRN PRN Reason: Breakthrough Nausea/Vomiting Psyllium Hydrophilic Mucilloid (Psyllium 1 Packet) 1 packet PO DAILY PRN PRN PRN Reason: Constipation Senna/Docusate Sodium (Senna/Docusate Sodium 1 Tablet) 2 tablet PO BID PRN PRN PRN Reason: Constipation Sodium Chloride (0.9% Saline Lock 10 Ml Syringe) 10 - 40 ml IV UD PRN PRN Reason: SALINE FLUSH Last Admin: 10/14/20 14:00 Dose: 20 ml Documented by: Throat Lozenges (Benzocaine/Menthol 1 Lozenge) 1 lozenge MUCOUS MEM Q2H PRN PRN PRN Reason: SORE THROAT STROKE Vital Signs/Narrative: Vital Signs Temp Pulse Resp BP Pulse Ox 10/15/20 11:59 98.1 F 71 18 143/83 H 96 10/15/20 10:57 94 Medical Necessity - Tobacco Use Tobacco Use: Non-smoker Assessment/Plan All Active Problems (Last Reviewed 02/12/20 @ 10:[address] Hardeep Medrano MD) Ludwigs angina (Acute) Right submandibular sialadenitis (Acute) Acute encephalopathy (Acute) Aphasia (Acute) Terry's angina -Status post I&D on 10/13/[address] Wright -Patient seems to be overall improving -Continue Vanco and Zosyn until noted otherwise by infectious disease -PICC line in place -OR cultures with no growth to date but anaerobic culture still pending -Will likely need to be followed up with dental given that this is predominantly related to dental infection most often Dysphagia -Per discussion with family patient was eating fine prior to admission -Suspect that this current dysphagia may be more related to his deep neck infection been progression of his dementia -Dobbhoff placed 10/13/2020 in left nares patient tenuous to tolerate tube feeds without any issues -Patient currently has 200 cc of free water via Dobbhoff every 4 hours -Monitor sodium and chloride on BMP-may need reduced if sodium drops -Continue speech therapy -Patient still having trouble with thin liquids, but did a trial of honey thick liquids and was improved today per speech therapy note -MBS when [employer] thinks appropriate Left hand vancomycin infiltration -Status post hyaluronidase injection on 10/14/2020 -hand looks much better today -Vascular studies show normal arterial flow in the left upper extremity -Discontinue neurovascular checks -Patient now has PICC Hypokalemia -40 mEq via Dobbhoff -Recheck in a.m. Mild leukocytosis -Resolved Chronic anemia -Hemoglobin means stable Acute hypoxic respiratory failure -Resolved -Patient remains on room air with SPO2 95-96% -Question aspiration with infection related dysphagia--> completed Unasyn Metabolic encephalopathy -Resolved -Per discussion with daughter it sounds like patient is at baseline mental status with dementia GUI -Resolved Hypertension -Mild elevations overall stable -Consider adding something scheduled if blood pressures remain elevated tomorrow -Continue as needed hydralazine for now PAF -Not A. fib currently -Patient not orally anticoagulated -Continue telemetry DVT/GI prophylaxis -Subcu Lovenox -Famotidine CODE STATUS -DNR CCA okay for intubation Inpatient E&M: 17417 Subs Hosp L2
--- NOTE | 2020-10-15 14:07 | PN_ITS ---
Patient Problems: Active and Suspected Problems (Last Reviewed 02/12/20 @ 10:[address] Hardeep Medrano MD) Ludwigs angina (Acute) Acute encephalopathy (Acute) Aphasia (Acute) Vitals/I&O's: Vital Signs Temp Pulse Resp BP Pulse Ox 98.1 F 71 18 143/83 H 96 10/15/20 11:59 10/15/20 11:59 10/15/20 11:59 10/15/20 11:59 10/15/20 11:59 Oxygen Flow Rate (L/min) 3 Oxygen Delivery Method Room Air Weight: 93.6 kg Body Mass Index (BMI) 30.5 Finger Stick Blood Glucose 173 Intake and Output for Last 24 Hours 10/13/20 10/14/20 10/15/20 23:59 23:59 23:59 Intake Total 4049.67 / 4049.67 2267.83 / 2267.83 1365 / 1365 Output Total 150 / 150 Balance 3899.67 / 3899.67 2267.83 / 2267.83 1365 / 1365 Microbiology Past 72 Hours 10/13/20 Unknown Wound - Neck Gram Stain - Final 10/13/20 Unknown Wound - Neck Wound Culture - Final No growth aerobically. 10/13/20 Unknown Wound - Neck Anaerobic Culture - Preliminary Checking for anaerobes, further studies to follow. Laboratory Results 10/15/20 06:30: Sodium 139, Potassium 3.2 L, Chloride 109 H, Carbon Dioxide 25.0, Anion Gap 5, BUN 18, Creatinine 0.85, Estim Creat Clear Calc 65.94, Est GFR (MDRD) Af Amer 111, Est GFR (MDRD) Non-Af 92, BUN/Creatinine Ratio 21.1 H, Glucose 111 H, Calcium 7.8 L, Phosphorus 2.4 L, Magnesium 2.2 10/15/20 06:30: WBC 10.8, RBC 4.25 L, Hgb 12.8 L, Hct 39.5 L, MCV 92.9, MCH 30.1, MCHC 32.4, RDW Std Deviation 47.6 H, RDW Coeff of Faustino 14.2, Plt Count 371, MPV 10.2, Immature Gran % (Auto) 0.600, Neut % (Auto) 77.3 H, Lymph % (Auto) 13.4 L, Hardy % (Auto) 6.4, Eos % (Auto) 2.1, Baso % (Auto) 0.2, Absolute Neuts (auto) 8.4 H, Absolute Lymphs (auto) 1.45, Nucleated RBC % 0 Current Medications Acetaminophen (Acetaminophen 325 Mg Tablet) 650 mg PO Q6H PRN PRN PRN Reason: Pain Score 1-10/Temp > 100.7 F Acetaminophen (Acetaminophen 325 Mg Suppository) 650 mg RECTAL Q4H PRN PRN PRN Reason: Pain Score 1-10/Temp > 100.7 F Al Hydroxide/Mg Hydroxide (Mag Hydrox/Al Hydrox/Simeth 30 Ml Udc) 30 ml PO Q6H PRN PRN PRN Reason: Gastric Burning Albuterol Sulfate (Albuterol Ih 8.5 Gm (Proair) Inhaler (200 Puffs)) 4 - 8 puff INHALATION Q4H PRN PRN PRN Reason: Dyspnea, wheezing Bisacodyl (Bisacodyl 10 Mg Suppository) 10 mg RECTAL DAILY PRN PRN Reason: Constipation Last Admin: 10/10/20 21:01 Dose: 10 mg Documented by: Calamine/Phenol (Menthol/Lanolin/Calamine/Znox 113 Gm Tube) 1 applic TOPICAL 4X/DAY [facility]; Protocol Last Admin: 10/15/20 08:26 Dose: 1 applic Documented by: Enoxaparin Sodium (Enoxaparin 40 Mg/0.4 Ml Syringe) 40 mg SC DAILY [facility] Last Admin: 10/15/20 08:26 Dose: 40 mg Documented by: Famotidine (Famotidine 20 Mg Tablet) 20 mg PO BID [facility] Last Admin: 10/15/20 08:26 Dose: Not Given Documented by: Guaifenesin (Guaifenesin 10 Ml Udc (200mg/10ml)) 20 ml PO Q4H PRN PRN PRN Reason: COUGH Hydralazine HCl (Hydralazine 20 Mg/Ml Vial) 10 mg IV Q8H PRN PRN PRN Reason: for SBP>160 Sodium Chloride () 250 mls @ 15 mls/hr IV .[id number] PRN PRN Reason: Saline Flush Last Infusion: 10/12/20 16:12 Dose: Infused Documented by: Sodium Chloride () 250 mls @ 15 mls/hr IV .[id number] PRN PRN Reason: Additional IVPB Infusion Vancomycin IV Pharmacy to Dose (1 ea/ Sodium Chloride) 500 mls @ 250 mls/hr IV X1 PRN; Protocol PRN Reason: Rx to Dose Enteral Nutritional Formula (Jevity 1.5) 1,000 mls @ 40 mls/hr NG .Q25H [facility] Last Admin: 10/15/20 01:13 Dose: 35 mls/hr Documented by: Vancomycin HCl 1,750 mg/ (Sodium Chloride) 535 mls @ 250 mls/hr IV Q12H [facility] Last Admin: 10/15/20 11:58 Dose: 250 mls/hr Documented by: Piperacillin Sod/Tazobactam (Sod 3.375 gm/ Sodium Chloride) 50 mls @ 12.5 mls/hr IV Q8 [facility] Labetalol HCl (Labetalol (Prefilled) 20 Mg/4 Ml) 20 mg IV X1 PRN PRN Reason: BLOOD PRESSURE Labetalol HCl (Labetalol (Prefilled) 20 Mg/4 Ml) 10 - 20 mg IV Q10M PRN PRN PRN Reason: to Maintain BP Goals Magnesium Hydroxide (Magnesium Hydroxide 30 Ml Udc) 30 ml PO DAILY PRN PRN PRN Reason: Constipation Melatonin (Melatonin 3 Mg Tablet) 3 mg PO QHS PRN PRN PRN Reason: INSOMNIA Ondansetron HCl (Ondansetron 4 Mg/2 Ml Vial) 4 mg IV Q8H PRN PRN PRN Reason: NAUSEA/VOMITING Prochlorperazine Edisylate (Prochlorperazine 10 Mg/2 Ml Vial) 5 mg IV Q4H PRN PRN PRN Reason: Breakthrough Nausea/Vomiting Psyllium Hydrophilic Mucilloid (Psyllium 1 Packet) 1 packet PO DAILY PRN PRN PRN Reason: Constipation Senna/Docusate Sodium (Senna/Docusate Sodium 1 Tablet) 2 tablet PO BID PRN PRN PRN Reason: Constipation Sodium Chloride (0.9% Saline Lock 10 Ml Syringe) 10 - 40 ml IV UD PRN PRN Reason: SALINE FLUSH Last Admin: 10/14/20 14:00 Dose: 20 ml Documented by: Throat Lozenges (Benzocaine/Menthol 1 Lozenge) 1 lozenge MUCOUS MEM Q2H PRN PRN PRN Reason: SORE THROAT STROKE Vital Signs/Narrative: Vital Signs Temp Pulse Resp BP Pulse Ox 10/15/20 11:59 98.1 F 71 18 143/83 H 96 10/15/20 10:57 94 Medical Necessity - Tobacco Use Tobacco Use: Non-smoker Assessment/Plan All Active Problems (Last Reviewed 02/12/20 @ 10:[address] Hardeep Medrano MD) Ludwigs angina (Acute) Right submandibular sialadenitis (Acute) Acute encephalopathy (Acute) Aphasia (Acute)
[2020-10-15] MEDS: Magnesium Hydroxide 30 ML UDC NG (16:07)
--- NOTE | 2020-10-15 17:30 | PCM.PN.BLA ---
Progress Note The patient is tolerating tube feeds avss Neck- dressing removed. No induration of the neck. No collections or purulence expressed from the wound. The drain was removed. The neck was then gently packed with 1/2 plain gauze. A new dressing was placed. A: POD#2 s/p incision and drainage of neck abscess. P: Daily packing and dressing changes by nursing. Continue IV abx although switching to NG abx would be appropriate. STROKE Vital Signs/Narrative: Vital Signs Temp Pulse Resp BP Pulse Ox 10/15/20 16:00 98.8 F 76 18 148/97 H 96 10/15/20 14:00 97.5 F L 76 16 150/87 H 94
[2020-10-15] MEDS: Famotidine 20 MG Tablet NG (22:30)
[2020-10-15] MEDS: hydrALAZINE 20 MG/ML Vial 10 MG IV (22:34)
[2020-10-15] MEDS: 0.9% Saline Lock 10 ML Syringe IV ×2 (22:35→23:47)
[2020-10-16] VITALS (9 sets, daily range): BP systolic 132–161; BP diastolic 76–95; PULSE 64–84; RESP 14–20; TEMP 36.3–37.1; O2SAT 94–98; BMI 30.1
[2020-10-16] MEDS: Jevity 1.5 1,000 ML 40 ML NG (02:32)
[2020-10-16] MEDS: 0.9% Saline Lock 10 ML Syringe IV (05:42)
[2020-10-16 05:59] LABS: Absolute Lymphocyte Count 0.76 X10^3/uL (0.83-4.51); Absolute Neutrophil Count 9.2 X10^3/uL (2.0-7.7); Basophil# 0.03 X10^3/uL; Basophil% 0.3 % (0-1); Eosinophil# 0.11 X10^3/uL; Hematocrit 41.2 % (40-54); Hemoglobin 13.4 g/dL (13.0-16.5); Lymphocyte # 0.76 X10^3/ul (4.0); Lymphocyte % 6.9 % (19-41); Mean Corp Hgb Conc 32.5 g/dL (32-36); Mean Corpuscular Hgb 30.1 pg (27.0-32.0); Mean Corpuscular Volume 92.6 fL (80-94); Mean Platelet Vol. 10.1 fl (6.2-12.0); Monocyte# 0.91 X10^3/uL; Monocyte% 8.2 % (0-10); NRBC Flagged by Analyzer 0 % (0-5); Neutrophil # 9.19 X10^3/uL (2.7-7.7); Neutrophil % 83.1 % (47-70); Platelet Count 392 K/mm3 (150-450); RBC Distribution Width CV 14.6 % (11.6-14.6); RBC Distribution Width SD 48.7 fl (35.1-43.9); Red Blood Count 4.45 M/mm3 (4.6-6.2); White Blood Count 11.1 K/mm3 (4.4-11.0)
[2020-10-16 06:37] LABS: Anion Gap 5 (5-15); BUN 13 mg/dL (7-18); BUN/Creat Ratio 16.3 RATIO (10-20); Chloride 111 mmol/L (98-107); EST Glomerular Filtration Rate 99 mL/min (>60); Est Glom Filt Rate - Afr Amer 119 mL/min (>60); Estimated Creatinine Clearance 70.06 ml/min; Glucose 127 mg/dL (74-106); Magnesium 2.4 mg/dL (1.6-2.6); Phosphorus 3.1 mg/dL (2.5-4.9); Potassium 3.5 mmol/L (3.5-5.1); Sodium Level 140 mmol/L (136-145)
[2020-10-16] MEDS: Menthol/Lanolin/Calamine/Znox 113 GM Tube 1 APPLIC TOPICAL ×4 (08:18→22:24)
[2020-10-16] MEDS: Enoxaparin 40 MG/0.4 ML Syringe SC (08:19)
[2020-10-16] MEDS: Famotidine 20 MG Tablet NG ×2 (08:19→21:18)
--- NOTE | 2020-10-16 11:21 | CASEMGMT ---
Per speech therapy note, pt to be placed on pureed textures, Honey-thick liquids diet at this time. Dr. Darci ware and states will have nursing pull dobhoff today and start pt on diet. states if all goes well, pt may be able to discharge to TCU tomorrow. Ibis COREAS and Shiv, PCU charge, aware, voice understanding. Orville JARRELL CM
[2020-10-16 11:49] LABS: Vancomycin, Trough Level 21.3 ug/mL (5.0-15.0)
--- NOTE | 2020-10-16 13:36 | CASEMGMT ---
LYUDMILA called patient's son in law, Remberto and let him know TCU is holding a bed for patient so when he is ready he can still go to TCU. He asked that LYUDMILA let Mariana at [facility] know this plan. LYUDMILA called Mariana at [facility] and left her a voice mail with an update on patient and that the plan is still TCU with a transition to [facility]. Alize WEBB MSW
--- NOTE | 2020-10-16 15:22 | PCM.PN.ID ---
Patient Problems: Active and Suspected Problems (Last Reviewed 02/12/20 @ 10:[address] Hardeep Medrano MD) Ludwigs angina (Acute) Acute encephalopathy (Acute) Aphasia (Acute) Subjective: Sleeping this afternoon, no fever - Physical Exam Vitals/I&O's: Vital Signs Temp Pulse Resp BP Pulse Ox 97.3 F L 74 18 142/81 H 98 10/16/20 14:00 10/16/20 14:00 10/16/20 14:00 10/16/20 14:00 10/16/20 14:00 Oxygen Flow Rate (L/min) 3 Oxygen Delivery Method Room Air Weight: 92.2 kg Body Mass Index (BMI) 30.5 Finger Stick Blood Glucose 173 Intake and Output for Last 24 Hours 10/14/20 10/15/20 10/16/20 23:59 23:59 23:59 Intake Total 2267.83 / 2267.83 2436 / 2436 2350 / 2350 Balance 2267.83 / 2267.83 2436 / 2436 2350 / 2350 General: No apparent distress Lungs: Clear to auscultation, Normal air movement Cardiovascular: Regular rate, Regular Rhythm Abdomen: Soft, Non Tender, Non-Distended Skin: No rashes Microbiology Past 72 Hours 10/13/20 Unknown Wound - Neck Gram Stain - Final 10/13/20 Unknown Wound - Neck Wound Culture - Final No growth aerobically. 10/13/20 Unknown Wound - Neck Anaerobic Culture - Preliminary Checking for anaerobes, further studies to follow. Laboratory Results 10/16/20 05:30: Sodium 140, Potassium 3.5, Chloride 111 H, Carbon Dioxide 24.0, Anion Gap 5, BUN 13, Creatinine 0.80, Estim Creat Clear Calc 70.06, Est GFR (MDRD) Af Amer 119, Est GFR (MDRD) Non-Af 99, BUN/Creatinine Ratio 16.3, Glucose 127 H, Calcium 8.0 L, Phosphorus 3.1, Magnesium 2.4 10/16/20 05:30: WBC 11.1 H, RBC 4.45 L, Hgb 13.4, Hct 41.2, MCV 92.6, MCH 30.1, MCHC 32.5, RDW Std Deviation 48.7 H, RDW Coeff of Faustino 14.6, Plt Count 392, MPV 10.1, Immature Gran % (Auto) 0.500, Neut % (Auto) 83.1 H, Lymph % (Auto) 6.9 L, [place] % (Auto) 8.2, Eos % (Auto) 1.0, Baso % (Auto) 0.3, Absolute Neuts (auto) 9.2 H, Absolute Lymphs (auto) 0.76 L, Nucleated RBC % 0 10/16/20 11:09: Vancomycin Trough 21.3 H Current Medications Acetaminophen (Acetaminophen 325 Mg Suppository) 650 mg RECTAL Q4H PRN PRN PRN Reason: Pain Score 1-10/Temp > 100.7 F Acetaminophen (Acetaminophen 650 Mg/20 Ml Udc) 650 mg NG Q6H PRN PRN PRN Reason: Pain Score 1-10/Temp > 100.7 F Al Hydroxide/Mg Hydroxide (Mag Hydrox/Al Hydrox/Simeth 30 Ml Udc) 30 ml NG Q6H PRN PRN PRN Reason: Gastric Burning Albuterol Sulfate (Albuterol Ih 8.5 Gm (Proair) Inhaler (200 Puffs)) 4 - 8 puff INHALATION Q4H PRN PRN PRN Reason: Dyspnea, wheezing Bisacodyl (Bisacodyl 10 Mg Suppository) 10 mg RECTAL DAILY PRN PRN Reason: Constipation Last Admin: 10/10/20 21:01 Dose: 10 mg Documented by: Calamine/Phenol (Menthol/Lanolin/Calamine/Znox 113 Gm Tube) 1 applic TOPICAL 4X/DAY [facility]; Protocol Last Admin: 10/16/20 14:49 Dose: 1 applic Documented by: Enoxaparin Sodium (Enoxaparin 40 Mg/0.4 Ml Syringe) 40 mg SC DAILY [facility] Last Admin: 10/16/20 08:19 Dose: 40 mg Documented by: Famotidine (Famotidine 20 Mg Tablet) 20 mg NG BID [facility] Last Admin: 10/16/20 08:19 Dose: 20 mg Documented by: Guaifenesin (Guaifenesin 10 Ml Udc (200mg/10ml)) 20 ml NG Q4H PRN PRN PRN Reason: COUGH Hydralazine HCl (Hydralazine 20 Mg/Ml Vial) 10 mg IV Q8H PRN PRN PRN Reason: for SBP>160 Last Admin: 10/15/20 22:34 Dose: 10 mg Documented by: Sodium Chloride () 250 mls @ 15 mls/hr IV .[id number] PRN PRN Reason: Saline Flush Last Infusion: 10/16/20 02:33 Dose: 15 mls/hr Documented by: Sodium Chloride () 250 mls @ 15 mls/hr IV .[id number] PRN PRN Reason: Additional IVPB Infusion Vancomycin IV Pharmacy to Dose (1 ea/ Sodium Chloride) 500 mls @ 250 mls/hr IV X1 PRN; Protocol PRN Reason: Rx to Dose Vancomycin HCl 1,750 mg/ (Sodium Chloride) 535 mls @ 250 mls/hr IV Q12H [facility] Last Infusion: 10/16/20 14:13 Dose: Infused Documented by: Piperacillin Sod/Tazobactam (Sod 3.375 gm/ Sodium Chloride) 50 mls @ 12.5 mls/hr IV Q8 [facility] Last Admin: 10/16/20 14:49 Dose: 12.5 mls/hr Documented by: Labetalol HCl (Labetalol (Prefilled) 20 Mg/4 Ml) 20 mg IV X1 PRN PRN Reason: BLOOD PRESSURE Labetalol HCl (Labetalol (Prefilled) 20 Mg/4 Ml) 10 - 20 mg IV Q10M PRN PRN PRN Reason: to Maintain BP Goals Magnesium Hydroxide (Magnesium Hydroxide 30 Ml Udc) 30 ml NG DAILY PRN PRN PRN Reason: Constipation Last Admin: 10/15/20 16:07 Dose: 30 ml Documented by: Melatonin (Melatonin 3 Mg Tablet) 3 mg NG QHS PRN PRN PRN Reason: INSOMNIA Ondansetron HCl (Ondansetron 4 Mg/2 Ml Vial) 4 mg IV Q8H PRN PRN PRN Reason: NAUSEA/VOMITING Prochlorperazine Edisylate (Prochlorperazine 10 Mg/2 Ml Vial) 5 mg IV Q4H PRN PRN PRN Reason: Breakthrough Nausea/Vomiting Psyllium Hydrophilic Mucilloid (Psyllium 1 Packet) 1 packet NG DAILY PRN PRN PRN Reason: Constipation Senna/Docusate Sodium (Senna/Docusate Sodium 1 Tablet) 2 tablet NG BID PRN PRN PRN Reason: Constipation Sodium Chloride (0.9% Saline Lock 10 Ml Syringe) 10 - 40 ml IV UD PRN PRN Reason: SALINE FLUSH Last Admin: 10/16/20 05:42 Dose: 10 ml Documented by: Throat Lozenges (Benzocaine/Menthol 1 Lozenge) 1 lozenge MUCOUS MEM Q2H PRN PRN PRN Reason: SORE THROAT Medical Necessity - Tobacco Use Tobacco Use: Non-smoker Route of nutrition/ use of supplements: [] Nutritional Intake: [] IV Site: [] Cheung Catheter: [] - Assessment/Plan Antibiotics: [] Assessment/Plan: [] Active and Suspected Problems (Last Reviewed 02/12/20 @ 10:[address] Hardeep Medrano MD) Acute encephalopathy (Acute) Aphasia (Acute) Worsening submandibular abscess seen on CT after being on iv abx since 10/05. Now s/p I&D by Dr. Wright 10/13/20. Surg cx neg so far. Cont vanc/zosyn for one more week. Will follow
--- NOTE | 2020-10-16 15:26 | NT.THERAPY_ITS ---
Nutrition Therapy Report - History Nutrition Services has been consulted to:: Manage nutrient details of diet order, Manage enteral nutrition Current diet / nutrition support order:: regular-puree/honey thick, Jevity 1.5 via NGT at 40mL/hour w/ 200mL H2O flush every 4 hours to provide 1440 calories, 61 g protein, and 1929mL total fluid/day. - Anthropometric Measurements Height:: 5 ft 8.9 in Weight:: 92.2 kg Body Mass Index (BMI):: 30.1 - Relevant Labs Relevant Labs:: WBC 11.1 K/mm3 (4.4-11.0) H 10/16/20 05:30 RBC 4.45 M/mm3 (4.6-6.2) L 10/16/20 05:30 Hgb 12.8 g/dL (13.0-16.5) L 10/15/20 06:30 Hct 39.5 % (40-54) L 10/15/20 06:30 MCV 94.6 fL (80-94) H 10/06/20 09:05 MCHC 31.8 g/dL (32-36) L 10/14/20 06:04 RDW Std Deviation 48.7 fl (35.1-43.9) H 10/16/20 05:30 Neut % (Auto) 83.1 % (47-70) H 10/16/20 05:30 Lymph % (Auto) 6.9 % (19-41) L 10/16/20 05:30 [place] % (Auto) 12.4 % (0-10) H 10/05/20 04:48 Absolute Neuts (auto) 9.2 X10^3/uL (2.0-7.7) H 10/16/20 05:30 Absolute Lymphs (auto) 0.76 X10^3/uL (0.83-4.51) L 10/16/20 05:30 PT 17.0 SECONDS (11.7-14.9) H 10/13/20 05:33 APTT 37.2 Seconds (24.1-36.2) H 10/04/20 23:36 Sodium 150 mmol/L (136-145) H 10/10/20 08:23 Potassium 3.2 mmol/L (3.5-5.1) L 10/15/20 06:30 Chloride 111 mmol/L (98-107) H 10/16/20 05:30 BUN 32 mg/dL (7-18) H 10/12/20 06:21 Creatinine 0.66 mg/dL (0.70-1.30) L 10/13/20 05:33 Est GFR (MDRD) Af Amer 51 mL/min (>60) L 10/04/20 23:36 Est GFR (MDRD) Non-Af 42 mL/min (>60) L 10/04/20 23:36 BUN/Creatinine Ratio 21.1 RATIO (10-20) H 10/15/20 06:30 Glucose 127 mg/dL (74-106) H 10/16/20 05:30 Hemoglobin A1c 5.7 % (3.8-5.6) H 10/05/20 04:48 Lactic Acid 2.8 mmol/L (0.4-1.9) H* 10/04/20 23:36 Calcium 8.0 mg/dL (8.5-10.1) L 10/16/20 05:30 Phosphorus 2.4 mg/dL (2.5-4.9) L 10/15/20 06:30 Total Protein 8.7 g/dL (6.4-8.2) H 10/04/20 23:36 Albumin 2.2 g/dL (3.2-5.0) L 10/14/20 06:04 Globulin 4.8 g/dL (2.2-4.2) H 10/05/20 04:48 Albumin/Globulin Ratio 0.5 RATIO (0.9-2.4) L 10/14/20 06:04 Procalcitonin 0.14 ng/mL (0.00-0.09) H 10/04/20 23:36 TSH 0.35 uIU/mL (0.358-3.74) L 10/05/20 04:48 - Assessment Food / Nutrition-Related History:: Cleared by LITERACY SPECIALIST for PO diet-puree/honey thick. Per nursing staff ate poorly at lunch. Continues w/ continuous enteral nutrition via NGT at 40mL/hour w/ 200mL flush q 4 hours to provide 1440 calories, 61 g protein per day. Got milk of mag yesterday- continues to not have a BM. Normal bowel sounds per discussion w/ nursing staff. Wt decrease of 1.4 kg noted since last review. - Nutrition Intervention Nutrition Prescription:: Estimated needs: 3683-5524 calories, 70-80 g protein. - Food / Nutrient Delivery Interventions Summary of nutrition intervention:: Plans for d/c to TCU when medically appropriate. Discussed w/ Dr. Bejarano on removing NGT prior to TCU transfer. Adequate PO intake yet to be established. Recommend d/c'ing continuous enteral nutrition at this time in hopes that PO intake improves at dinner tonight. May benefit from nocturnal feeding to provide at least 50% of estimated energy needs until adequate PO at meals is established. Nutrition support ordered as / adjusted to:: Continue regular diet, consistency per LITERACY SPECIALIST (puree/honey thick, supervised feed). Will add ONS w/ meals for additional calories/protein if consumed. Will change enteral nutrition support to Jevity 1.5 via NGT at 55mL/hour for 10 hours ([id number]) to meet 50% of estimated energy needs, >75% estimated fluid needs (825 calories, 35 g protein, and 1618mL total fluid/day). Continue 200mL H2O flush every 4 hours. Continue daily wts. - MNT Monitoring Further MNT monitoring and evaluation required?: Yes MNT Follow-up in:: 1-2 days
--- NOTE | 2020-10-16 16:00 | NURSING ---
Pt's tube feed stopped per order.
--- NOTE | 2020-10-16 19:00 | NURSING ---
Pt ate approx. 50% of supper tonight including entire bowl of turkey, few bites of mashed potatoes, 1/3 cup of milk, few bites of carrots, and entire cup of applesauce.
--- NOTE | 2020-10-16 19:25 | PCM.PROGNOTE ---
Patient Problems: Active and Suspected Problems (Last Reviewed 02/12/20 @ 10:[address] Hardeep Medrano MD) Ludwigs angina (Acute) Acute encephalopathy (Acute) Aphasia (Acute) Subjective: She was seen and examined today, he remains confused, he was cleared for a diet today, I talked with nutritional services and they recommended stopping his tube feedings to see if it would stimulate his appetite. Patient has a bed available in TCU, I elected not to send him today and reevaluate him tomorrow. - Physical Exam Vitals/I&O's: Vital Signs Temp Pulse Resp BP Pulse Ox 98.6 F 76 18 161/93 H 97 10/16/20 18:00 10/16/20 18:00 10/16/20 18:00 10/16/20 18:00 10/16/20 18:00 Oxygen Flow Rate (L/min) 3 Oxygen Delivery Method Room Air Weight: 92.2 kg Body Mass Index (BMI) 30.1 Finger Stick Blood Glucose 173 Intake and Output for Last 24 Hours 10/14/20 10/15/20 10/16/20 23:59 23:59 23:59 Intake Total 2267.83 / 2267.83 2436 / 2436 2440 / 2440 Balance 2267.83 / 2267.83 2436 / 2436 2440 / 2440 General: Alert, No apparent distress, Well developed, Confused HEENT: Atraumatic, PERRLA, EOMI, Normocephalic Oral: Moist Mucosa Neck: Supple, No JVD, Trachea Midline, Thyroid Normal Size and Texture Lungs: Clear to auscultation, Normal air movement, No rhonchi, No wheeze, No rales Cardiovascular: Regular rate, Regular Rhythm, Normal S1, Normal S2, No murmurs Abdomen: Bowel Sounds Present, Soft, Non Tender, Non-Distended Extremities: No clubbing, No cyanosis, No edema, Capillary Refill Less than 3 Seconds Skin: No rashes, No breakdown Musculoskeletal: No Tenderness to Palpation of Joints or Extremities Neurological: Cranial nerves II-XII grossly intact, Neuro grossly intact, Sensory exam intact to light touch and pain Psych/Mental Status: - - Patient is alert but confused, he does not appear in any distress Microbiology Past 72 Hours 10/13/20 Unknown Wound - Neck Gram Stain - Final 10/13/20 Unknown Wound - Neck Wound Culture - Final No growth aerobically. 10/13/20 Unknown Wound - Neck Anaerobic Culture - Preliminary Checking for anaerobes, further studies to follow. Laboratory Results 10/16/20 05:30: Sodium 140, Potassium 3.5, Chloride 111 H, Carbon Dioxide 24.0, Anion Gap 5, BUN 13, Creatinine 0.80, Estim Creat Clear Calc 70.06, Est GFR (MDRD) Af Amer 119, Est GFR (MDRD) Non-Af 99, BUN/Creatinine Ratio 16.3, Glucose 127 H, Calcium 8.0 L, Phosphorus 3.1, Magnesium 2.4 10/16/20 05:30: WBC 11.1 H, RBC 4.45 L, Hgb 13.4, Hct 41.2, MCV 92.6, MCH 30.1, MCHC 32.5, RDW Std Deviation 48.7 H, RDW Coeff of Faustino 14.6, Plt Count 392, MPV 10.1, Immature Gran % (Auto) 0.500, Neut % (Auto) 83.1 H, Lymph % (Auto) 6.9 L, [place] % (Auto) 8.2, Eos % (Auto) 1.0, Baso % (Auto) 0.3, Absolute Neuts (auto) 9.2 H, Absolute Lymphs (auto) 0.76 L, Nucleated RBC % 0 10/16/20 11:09: Vancomycin Trough 21.3 H Current Medications Acetaminophen (Acetaminophen 325 Mg Suppository) 650 mg RECTAL Q4H PRN PRN PRN Reason: Pain Score 1-10/Temp > 100.7 F Acetaminophen (Acetaminophen 650 Mg/20 Ml Udc) 650 mg NG Q6H PRN PRN PRN Reason: Pain Score 1-10/Temp > 100.7 F Al Hydroxide/Mg Hydroxide (Mag Hydrox/Al Hydrox/Simeth 30 Ml Udc) 30 ml NG Q6H PRN PRN PRN Reason: Gastric Burning Albuterol Sulfate (Albuterol Ih 8.5 Gm (Proair) Inhaler (200 Puffs)) 4 - 8 puff INHALATION Q4H PRN PRN PRN Reason: Dyspnea, wheezing Bisacodyl (Bisacodyl 10 Mg Suppository) 10 mg RECTAL DAILY PRN PRN Reason: Constipation Last Admin: 10/10/20 21:01 Dose: 10 mg Documented by: Calamine/Phenol (Menthol/Lanolin/Calamine/Znox 113 Gm Tube) 1 applic TOPICAL 4X/DAY [facility]; Protocol Last Admin: 10/16/20 16:16 Dose: 1 applic Documented by: Enoxaparin Sodium (Enoxaparin 40 Mg/0.4 Ml Syringe) 40 mg SC DAILY [facility] Last Admin: 10/16/20 08:19 Dose: 40 mg Documented by: Famotidine (Famotidine 20 Mg Tablet) 20 mg NG BID [facility] Last Admin: 10/16/20 08:19 Dose: 20 mg Documented by: Guaifenesin (Guaifenesin 10 Ml Udc (200mg/10ml)) 20 ml NG Q4H PRN PRN PRN Reason: COUGH Hydralazine HCl (Hydralazine 20 Mg/Ml Vial) 10 mg IV Q8H PRN PRN PRN Reason: for SBP>160 Last Admin: 10/15/20 22:34 Dose: 10 mg Documented by: Sodium Chloride () 250 mls @ 15 mls/hr IV .[id number] PRN PRN Reason: Saline Flush Last Infusion: 10/16/20 02:33 Dose: 15 mls/hr Documented by: Sodium Chloride () 250 mls @ 15 mls/hr IV .[id number] PRN PRN Reason: Additional IVPB Infusion Vancomycin IV Pharmacy to Dose (1 ea/ Sodium Chloride) 500 mls @ 250 mls/hr IV X1 PRN; Protocol PRN Reason: Rx to Dose Piperacillin Sod/Tazobactam (Sod 3.375 gm/ Sodium Chloride) 50 mls @ 12.5 mls/hr IV Q8 [facility] Last Admin: 10/16/20 14:49 Dose: 12.5 mls/hr Documented by: Enteral Nutritional Formula (Jevity 1.5) 1,000 mls @ 55 mls/hr NG .[id number] [facility] Labetalol HCl (Labetalol (Prefilled) 20 Mg/4 Ml) 20 mg IV X1 PRN PRN Reason: BLOOD PRESSURE Labetalol HCl (Labetalol (Prefilled) 20 Mg/4 Ml) 10 - 20 mg IV Q10M PRN PRN PRN Reason: to Maintain BP Goals Magnesium Hydroxide (Magnesium Hydroxide 30 Ml Udc) 30 ml NG DAILY PRN PRN PRN Reason: Constipation Last Admin: 10/15/20 16:07 Dose: 30 ml Documented by: Melatonin (Melatonin 3 Mg Tablet) 3 mg NG QHS PRN PRN PRN Reason: INSOMNIA Ondansetron HCl (Ondansetron 4 Mg/2 Ml Vial) 4 mg IV Q8H PRN PRN PRN Reason: NAUSEA/VOMITING Prochlorperazine Edisylate (Prochlorperazine 10 Mg/2 Ml Vial) 5 mg IV Q4H PRN PRN PRN Reason: Breakthrough Nausea/Vomiting Psyllium Hydrophilic Mucilloid (Psyllium 1 Packet) 1 packet NG DAILY PRN PRN PRN Reason: Constipation Senna/Docusate Sodium (Senna/Docusate Sodium 1 Tablet) 2 tablet NG BID PRN PRN PRN Reason: Constipation Sodium Chloride (0.9% Saline Lock 10 Ml Syringe) 10 - 40 ml IV UD PRN PRN Reason: SALINE FLUSH Last Admin: 10/16/20 05:42 Dose: 10 ml Documented by: Throat Lozenges (Benzocaine/Menthol 1 Lozenge) 1 lozenge MUCOUS MEM Q2H PRN PRN PRN Reason: SORE THROAT Medical Necessity - Tobacco Use Tobacco Use: Non-smoker Assessment/Plan All Active Problems (Last Reviewed 02/12/20 @ 10:[address] 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 #2 submandibular abscess-organism unknown at this time, continue antibiotics per ID #3 oropharyngeal dysphagia-probably secondary to submandibular abscess with an overlay of dementia-again patient was cleared for oral intake today, I will leave his Dobbhoff in place at this time #4 dementia-again patient will require at least temporary placement in a long term facility at the time of discharge #5 essential hypertension #6 acute hypoxic respiratory [id number] is currently on room air #7 paroxysmal atrial fibrillation Chronic kidney disease was ruled out Inpatient E&M: 22327 Subs Hosp L2
[2020-10-16] MEDS: Jevity 1.5 1,000 ML 55 ML NG (21:45)
[2020-10-17 02:15] VITALS: BP 143/6; PULSE 87; RESP 16; TEMP 36.6; O2SAT 96
[2020-10-17 03:57] VITALS: BP 145/74; PULSE 76; RESP 15; TEMP 36.5; O2SAT 95
[2020-10-17 04:52] VITALS: O2SAT 95
[2020-10-17 05:41] VITALS: BP 130/82; PULSE 76; RESP 15; O2SAT 96
[2020-10-17 07:32] LABS: Absolute Lymphocyte Count 0.92 X10^3/uL (0.83-4.51); Absolute Neutrophil Count 9.1 X10^3/uL (2.0-7.7); Basophil# 0.04 X10^3/uL; Basophil% 0.4 % (0-1); Eosinophil# 0.14 X10^3/uL; Eosinophils% 1.2 % (0-5); Hematocrit 38.4 % (40-54); Hemoglobin 12.7 g/dL (13.0-16.5); Lymphocyte # 0.92 X10^3/ul (4.0); Lymphocyte % 8.1 % (19-41); Mean Corp Hgb Conc 33.1 g/dL (32-36); Mean Corpuscular Hgb 30.5 pg (27.0-32.0); Mean Corpuscular Volume 92.3 fL (80-94); Mean Platelet Vol. 10.4 fl (6.2-12.0); Monocyte# 1.11 X10^3/uL; Monocyte% 9.8 % (0-10); NRBC Flagged by Analyzer 0 % (0-5); Neutrophil # 9.07 X10^3/uL (2.7-7.7); Neutrophil % 80.1 % (47-70); Platelet Count 404 K/mm3 (150-450); Red Blood Count 4.16 M/mm3 (4.6-6.2); White Blood Count 11.3 K/mm3 (4.4-11.0)
[2020-10-17 07:45] LABS: Anion Gap 7 (5-15); BUN 17 mg/dL (7-18); Calcium,Total 8.2 mg/dL (8.5-10.1); Chloride 115 mmol/L (98-107); Creatinine, Serum 1.31 mg/dL (0.70-1.30); EST Glomerular Filtration Rate 56 mL/min (>60); Est Glom Filt Rate - Afr Amer 68 mL/min (>60); Estimated Creatinine Clearance 42.79 ml/min; Glucose 145 mg/dL (74-106); Potassium 3.7 mmol/L (3.5-5.1); Sodium Level 146 mmol/L (136-145)
--- NOTE | 2020-10-17 08:50 | NURSING ---
Soft restraints removed from bilateral wrists.
--- NOTE | 2020-10-17 11:42 | NURSING ---
Patient agitated with care. Attempted with [address] parada and patient combative and ripped tube from RN hand. Parada catheter placed with assistance x2. Quick return of 1300cc clear yellow urine noted. Tolerated fair. Quickly goes back to sleep once staff done caring for patient.
[2020-10-17] MEDS: Menthol/Lanolin/Calamine/Znox 113 GM Tube 1 APPLIC TOPICAL ×3 (11:50→17:35)
[2020-10-17] MEDS: Enoxaparin 40 MG/0.4 ML Syringe SC (11:51)
--- NOTE | 2020-10-17 14:43 | NT.THERAPY_ITS ---
Nutrition Therapy Report - History Nutrition Services has been consulted to:: Manage enteral nutrition Current diet / nutrition support order:: NPO - Anthropometric Measurements Height:: 5 ft 8.9 in Weight:: 92.6 kg Body Mass Index (BMI):: 30.2 - Relevant Labs Relevant Labs:: WBC 11.3 K/mm3 (4.4-11.0) H 10/17/20 06:30 RBC 4.16 M/mm3 (4.6-6.2) L 10/17/20 06:30 Hgb 12.7 g/dL (13.0-16.5) L 10/17/20 06:30 Hct 38.4 % (40-54) L 10/17/20 06:30 MCV 94.6 fL (80-94) H 10/06/20 09:05 MCHC 31.8 g/dL (32-36) L 10/14/20 06:04 RDW Std Deviation 50.0 fl (35.1-43.9) H 10/17/20 06:30 RDW Coeff of Faustino 15.0 % (11.6-14.6) H 10/17/20 06:30 Neut % (Auto) 80.1 % (47-70) H 10/17/20 06:30 Lymph % (Auto) 8.1 % (19-41) L 10/17/20 06:30 [place] % (Auto) 12.4 % (0-10) H 10/05/20 04:48 Absolute Neuts (auto) 9.1 X10^3/uL (2.0-7.7) H 10/17/20 06:30 Absolute Lymphs (auto) 0.76 X10^3/uL (0.83-4.51) L 10/16/20 05:30 PT 17.0 SECONDS (11.7-14.9) H 10/13/20 05:33 APTT 37.2 Seconds (24.1-36.2) H 10/04/20 23:36 Sodium 146 mmol/L (136-145) H 10/17/20 06:30 Potassium 3.2 mmol/L (3.5-5.1) L 10/15/20 06:30 Chloride 115 mmol/L (98-107) H 10/17/20 06:30 BUN 32 mg/dL (7-18) H 10/12/20 06:21 Creatinine 1.31 mg/dL (0.70-1.30) H 10/17/20 06:30 Est GFR (MDRD) Af Amer 51 mL/min (>60) L 10/04/20 23:36 Est GFR (MDRD) Non-Af 56 mL/min (>60) L 10/17/20 06:30 BUN/Creatinine Ratio 21.1 RATIO (10-20) H 10/15/20 06:30 Glucose 145 mg/dL (74-106) H 10/17/20 06:30 Hemoglobin A1c 5.7 % (3.8-5.6) H 10/05/20 04:48 Lactic Acid 2.8 mmol/L (0.4-1.9) H* 10/04/20 23:36 Calcium 8.2 mg/dL (8.5-10.1) L 10/17/20 06:30 Phosphorus 2.4 mg/dL (2.5-4.9) L 10/15/20 06:30 Total Protein 8.7 g/dL (6.4-8.2) H 10/04/20 23:36 Albumin 2.2 g/dL (3.2-5.0) L 10/14/20 06:04 Globulin 4.8 g/dL (2.2-4.2) H 10/05/20 04:48 Albumin/Globulin Ratio 0.5 RATIO (0.9-2.4) L 10/14/20 06:04 Procalcitonin 0.14 ng/mL (0.00-0.09) H 10/04/20 23:36 TSH 0.35 uIU/mL (0.358-3.74) L 10/05/20 04:48 - Assessment Food / Nutrition-Related History:: Pt returned to NPO status today as per MEDICAL RECORDS RECEPTIONIST unable to safely take PO nutrition. Will change TF back from nocturnal to continuous with Jevity 1.5 Andrew. Wt appears overall stable with .4 Kg increase noted. TF seems well tolerated with 20 ml residuals noted x 2. Plans for TCU at d/c. Estimated Nutrition Needs~7093-8397 kcal and ~70-80 gm protein/day. - Nutrition Diagnosis Problem / Etiology / Signs & Symptoms (PES):: Inadequate oral intake r/t swallowing difficulty as evidence by return/downgrade to strict NPO status and inability to manage puree textures and initiate swallow. [ End ] Evidence of Malnutrition Exists:: No - Nutrition Intervention Nutrition Prescription:: Estimated Nutrition Needs~5197-0796 kcal and ~70-80 gm protein/day. Estimated fluid needs~6934-0016 ml (1 ml/kcal of TF delivered). - Food / Nutrient Delivery Interventions Summary of nutrition intervention:: Pt downgraded to NPO per MEDICAL RECORDS RECEPTIONIST so, will change TF from nocturnal back to continuous. TF to meet~100% estimated nutrition and fluid needs. Nutrition support ordered as / adjusted to:: Restart continuous TF with Jevity 1.5 Andrew @ 25 ml/hr and increase as tolerated to goal rate 50 ml/hr with 150 ml water flush Q 4 hours to provide 1800 kcal, 76.6 gm protein and 1812 ml total free water/day. Weigh daily. Strict NPO status. Consider PEG tube for long-term enteral nutrition support; noted plans for TCU at d/c. Nutrition education provided?: No - MNT Monitoring Further MNT monitoring and evaluation required?: Yes MNT Follow-up in:: 3-5 days
[2020-10-17 14:44] VITALS: BMI 30.2
[2020-10-17 14:57] VITALS: BP 131/61; PULSE 88; RESP 18; TEMP 524.4; TEMP 976; O2SAT 94
[2020-10-17 17:29] VITALS: BP 131/61; PULSE 88; RESP 18; TEMP 36.4; O2SAT 94
--- NOTE | 2020-10-17 17:48 | NURSING ---
Report called to CHRYSTAL Bueno at [facility].
--- NOTE | 2020-10-17 17:52 | NURSING ---
Updated patient's daughter, Lashanda that patient will be leaving around 1930 to go to [facility].
--- NOTE | 2020-10-18 10:25 | PCM.DC.SUM ---
Discharge Date and Diagnosis - Problem List Patient Problems: Active and Suspected Problems (Last Reviewed 02/12/20 @ 10:[address] Hardeep Medrano MD) Ludwigs angina (Acute) Acute encephalopathy (Acute) Aphasia (Acute) Date of Admission: 10/05/20 Date of Discharge: 10/17/20 - Primary Discharge Diagnosis Acute Problems: Active Problems (Last Reviewed 02/12/20 @ 10:[address] Hardeep Medrano MD) #1 Ludewig's angina #2 submandibular abscess-organism unknown #3 oropharyngeal dysphagia-probably secondary to submandibular abscess with an overlay of dementia #4 dementia-chronic #5 essential hypertension #6 acute hypoxic respiratory failure #7 paroxysmal atrial fibrillation #8 hypoxic respiratory failure secondary to multiple medical problems including dementia and encephalopathy. #9 metabolic encephalopathy secondary to multiple medical problems on an overlay of dementia #10 acute kidney injury - Secondary Discharge Diagnosis Chronic Problems: Chronic Problems (Last Reviewed 02/12/20 @ 10:[address] Hardeep Medrano MD) Dementia (Chronic) CKD (chronic kidney disease), stage III (Chronic) Normocytic anemia (Chronic) Paroxysmal atrial fibrillation (Chronic) Essential (primary) hypertension (Chronic) Hospital Course and Treatment Operations: None Procedures: None Summary of Care Provided: The patient is a 80 year old M was seen in the emergency room at [facility] after being brought in at the direction of his family due to altered mental status. Patient has chronic dementia and lives alone, his family found him in his home minimally responsive, with increased confusion and standing in one of his bedrooms. Work-up in the emergency room included a CT of the brain which was negative for an acute process, chest x-ray was concerning for patchy infiltrates, rapid Covid antigen test was sent and it was negative. Toxicology screening returned negative, urinalysis was negative, patient was not hypoxic and was not clinically septic. Patient was treated empirically by the emergency room physician for bacterial pneumonia, he was admitted to PCU for aphasia, work-up was done to exclude acute stroke, pain in consultation by oral surgery for acute swelling over the right submandibular region-oral surgery recommended continuation of antibiotics and IV fluids. Brain MRI showed no evidence of acute stroke, MRI of the head and neck were unremarkable, echocardiogram was obtained which revealed a normal EF with mild pulmonary hypertension, patient was seen in consultation by ENT after an abnormal CT of the neck located a right submandibular neck infection. Patient was seen in consultation by infectious diseases who adjusted his antibiotic coverage Patient underwent surgery for drainage of the area, he was seen by PT and OT as well as speech therapy. Patient was not able to eat and enteral feeding was started with a Dobbhoff tube. Conversations were carried out with the patient's family, patient finally after 48 hours pulled out his feeding tube and the family was approached due to the lack of clinical improvement with the patient, they requested a consultation with hospice who agreed to take the patient to the inpatient hospice facility. On 10/17/2020, patient was seen and examined:General: Lethargic, No apparent distress, Well developed, Confused HEENT: Atraumatic, PERRLA, EOMI, Normocephalic Oral: Moist Mucosa Neck: Supple, No JVD, Trachea Midline, Thyroid Normal Size and Texture Lungs: Clear to auscultation, Normal air movement, No rhonchi, No wheeze, No rales Cardiovascular: Regular rate, Regular Rhythm, Normal S1, Normal S2, No murmurs Abdomen: Bowel Sounds Present, Soft, Non Tender, Non-Distended Extremities: No clubbing, No cyanosis, No edema, Capillary Refill Less than 3 Seconds Skin: No rashes, No breakdown Musculoskeletal: No Tenderness to Palpation of Joints or Extremities Neurological: Cranial nerves II-XII grossly intact, Neuro grossly intact, Sensory exam intact to light touch and pain Psych/Mental Status: - - Patient is alert but confused, lethargic, he does not appear in any distress On 10/17/2020, patient was transferred to the inpatient hospice facility in terminal condition. Patient Problems: Active and Suspected Problems (Last Reviewed 02/12/20 @ 10:[address] Hardeep Medrano MD) Ludwigs angina (Acute) Acute encephalopathy (Acute) Aphasia (Acute) - Physical Exam Vitals/I&O's: Vital Signs Temp Pulse Resp BP Pulse Ox 97.6 F L 88 18 131/61 H 94 10/17/20 17:29 10/17/20 17:29 10/17/20 17:29 10/17/20 17:29 10/17/20 17:29 Oxygen Flow Rate (L/min) 3 Oxygen Delivery Method Room Air Weight: 92.6 kg Body Mass Index (BMI) 30.2 Finger Stick Blood Glucose 173 Intake and Output for Last 24 Hours 10/16/20 10/17/20 10/18/20 23:59 23:59 23:59 Intake Total 2735 / 2735 735 / 735 Output Total 3250 / 3250 Balance 2735 / 2735 -2515 / -2515 Microbiology Past 72 Hours 10/17/20 16:12 Mucosa - Nose SARS-CoV-2 Antigen (Rapid) - Final 10/13/20 Unknown Wound - Neck Gram Stain - Final 10/13/20 Unknown Wound - Neck Wound Culture - Final No growth aerobically. 10/13/20 Unknown Wound - Neck Anaerobic Culture - Final No anaerobic bacteria isolated. Home Medications: Medications to take at Discharge Piperacil/Tazobactam [Zosyn] 3.375 gm IV Q8 #21 vial 10/16/20 Following Prescriptions Were Given to Patient: Piperacil/Tazobactam [Zosyn] 3.375 gm IV Q8 #21 vial Prescription Printed Primary Care Physician: Jose L Gorman III, MD [Primary Care Provider] - Disposition: Hospice Medical Facility Minutes spent on discharge:: 31 Patient Condition:: Stable Medical Necessity - Tobacco Use Tobacco Use: Non-smoker Meaningful Use Info Meaningful Use Diagnoses (Choose all that apply): None applicable Inpatient E&M: 28055 Disch Hosp
== END 2020-10-17 19:39 | disposition hospice, inpatient (51) | DRG 154 ==
LOC: ED 10-05 01:47 → PCU 10-05 02:01
PROVIDERS: Hospitalist; Internal Medicine; Otolaryngology; Admitting Provider Family Medicine; Emergency Provider Emergency Medicine; PCP Family Medicine; Referring Provider Family Medicine; Visit Provider Internal Medicine
PROC: 0CJS8ZZ Inspection of Larynx, Via Natural or Artificial Opening Endoscopic (ICD-10-PCS; principal; 2020-10-13 11:20)
DX: K11.21 Acute sialoadenitis (principal); J96.01 Acute respiratory failure with hypoxia; G93.41 Metabolic encephalopathy; K12.2 Cellulitis and abscess of mouth; F03.91 Unspecified dementia, unspecified severity, with behavioral disturbance; R47.01 Aphasia; E87.2 Acidosis; N17.9 Acute kidney failure, unspecified; E11.22 Type 2 diabetes mellitus with diabetic chronic kidney disease; G47.33 Obstructive sleep apnea (adult) (pediatric); R13.12 Dysphagia, oropharyngeal phase; E87.6 Hypokalemia; D64.9 Anemia, unspecified; H91.90 Unspecified hearing loss, unspecified ear; I12.9 Hypertensive chronic kidney disease with stage 1 through stage 4 chronic kidney disease, or unspecified chronic kidney disease; I27.20 Pulmonary hypertension, unspecified; I48.0 Paroxysmal atrial fibrillation; N18.30 Chronic kidney disease, stage 3 unspecified; Z85.828 Personal history of other malignant neoplasm of skin; Z86.718 Personal history of other venous thrombosis and embolism; Z91.19 Patient's noncompliance with other medical treatment and regimen
CPT/HCPCS: 36415; 36569; 36600; 51702; 70450; 70490; 70491; 70544; 70547; 70551; 71045; 74018; 80048; 80053; 80061; 80202; 80307; 80329; 81001; 82803; 82962; 83036; 83605; 83735; 84100; 84145; 84439; 84443; 84484; 85025; 85610; 85730; 87040; 87070; 87075; 87205; 87426; 87449; 87633; 87641; 92507; 92523; 92526; 92610; 93005; 93306; 93931; 94667; 94668; 94762; 97110; 97116; 97162; 97166; 97530; 97535; 97802; 97803; 99285; J7030; J7040; J7050; J7120; Q9957; Q9967; A4216; C8929; G0480; J0295; J1940; J2405; J3470